=== PATIENT | male | born 1970 | race African-American/Black ===

== ENCOUNTER 2018-01-03 18:53 | Emergency (ER) | payer OTHER ==
[2018-01-03 19:24] VITALS: BMI 27.3
[2018-01-03] MEDS ORDERED: FOLIC ACID INJECTION - 1 MG, THIAMINE HCL 100 MG, MULTIVIT INJECTION ADULT 10 ML in SOD... IVPB ONE (19:58)
--- NOTE | 2018-01-03 20:04 | PDOC ---
Attending Attestation - Resident Resident Name: Neptali Cortes - ED Attending Attestation I have performed the following: I have examined & evaluated the patient, The case was reviewed & discussed with the resident, I agree w/resident's findings & plan, Exceptions are as noted - HPI HPI: 01/03/18 21:26 Mr Rothman is a 47 yo M h/o HTN, depression, bipolar, bronchitis, opioid, riccardo, xanax and alcohol dependence, being sent from [facility] due to headache, fever, runny nose, chills, body aches, anxiety, 1 episode diarrhea x1d and w/ worsening cough x3mo (previously treated with abx and steroids). cold /flu like sxs began this morning. - Physicial Exam PE: 01/03/18 21:43 PT is resting comfortably He is awake and arousable Answers questions appropriately RRR Lung clear to auscultation No abd tenderness CN in tact, moves all extremities - Medical Decision Making 47 yo M presenting to the ER with what sounds like upper respiratory complaints from [facility] Pt has stable vital signs It is unclear to me why he was sent to the ER? 01/03/18 21:45 Laboratory Tests 01/03/18 01/03/18 01/03/18 20:27 20:27 20:27 WBC 9.1 Hgb 13.8 Hct 41.3 Plt Count 218 BUN 10 Creatinine 1.1 HIV 1&2 Antibody Screen Negative HIV P24 Antigen Negative 01/04/18 00:55 CXR demonstrates no consolidation Influenza negative Will plan to discharge to home Will give Azithromycin and prednisone 01/04/18 08:48 Twelve-lead EKG was performed and reviewed by me. There is normal sinus rhythm with a normal rate. The axis is normal. The intervals are normal. There are no ST or T wave abnormalities. Impression: Normal twelve-lead EKG
[2018-01-03] MEDS ORDERED: chlordiazePOXIDE HCL 25 MG CAPSULE PO ONE (20:09)
--- NOTE | 2018-01-03 20:12 | PDOC ---
History of Present Illness - General Chief Complaint: Alcohol intoxication Stated Complaint: INTOX Time Seen by Provider: 01/03/18 20:03 - History of Present Illness Initial Comments: 01/03/18 20:12 47 yo male with PMH HTN, depression, bipolar, bronchitis, opioid, riccardo, xanax and alcohol dependence, being sent from [facility] due to lack of beds and p/w headache, fever, runny nose, chills, body aches, anxiety, 1 episode diarrhea x1d and w/ worsening cough x3mo. cold /flu like sxs began this morning. pt states last drink was yesterday. Last xanax and riccardo/opiod use 2 days ago. pt also reports having sex w/ new IV drug user female partner 2 days ago and did not use condom. pt requesting HIV test. pt states he does not use IV drugs and only snorts. pt states never has required intubation or ICU admission for withdrawal. However, he reports he suffered a seizure about six months ago and does not recall why. Reports hx of frequet blackouts. Reorts hx of fentanyl overdose three months ago. pt reports 3mo hx of worsening productive cough w/ some pleuritic chest pain. was seen in [facility] and was given steroids and abx. At [facility] reported w/ Utox positive for RICCARDO, Benzo. LEELA = 0.00, BP 150/70, P80, RR18, 98.7. SH: 1/2ppd for 20yr, 1 pint vodka and 12 beers a day, opioid, riccardo, xanax and alcohol dependence. [place] Meds: zoloft, zyprexa, gabapentin PCP - Dr. Holt Past History - Past Medical History Allergies/Adverse Reactions: Allergies Allergy/AdvReac Type Severity Reaction Status Date / Time Pork/Porcine Containing Allergy Verified 01/03/18 19:16 Products Home Medications: Ambulatory Orders Amlodipine Besylate 5 mg PO DAILY 01/03/18 Azithromycin 250 mg PO DAILY 4 Days #4 tablet 01/04/18 Prednisone [Deltasone] 60 mg PO DAILY 4 Days #12 tablet 01/04/18 COPD: No CHF: No HTN: Yes Psychiatric Problems: Yes (heroin abuse,alcoholism,bipolar) - Suicide/Smoking/Psychosocial Hx Smoking History: Current every day smoker Have you smoked in the past 12 months: Yes Number of Cigarettes Smoked Daily: 10 Information on smoking cessation initiated: Yes 'Breaking Loose' booklet given: 01/03/18 Substance Use Type: Alcohol, Heroin Review of Systems - Review of Systems Constitutional: Yes: See HPI HEENTM: Yes: See HPI Respiratory: Yes: See HPI Cardiac (ROS): Yes: See HPI ABD/GI: Yes: See HPI : Yes: See HPI Musculoskeletal: Yes: See HPI Integumentary: Yes: See HPI Neurological: Yes: See HPI Endocrine: Yes: See HPI Hematologic/Lymphatic: Yes: See HPI *Physical Exam - Vital Signs Last Vital Signs Temp Pulse Resp BP Pulse Ox 98.1 F 71 20 143/86 99 01/03/18 19:00 01/03/18 19:00 01/03/18 19:00 01/03/18 19:00 01/03/18 19:00 - Physical Exam Comments: 01/03/18 20:24 General: Well-nourished, mildly anxious HEENT: NCAT, MMM Neck: supple no lymphadenopathy Respiratory: rhonci b/l cardio: RRR S1 S2 no m/r/g. Abdomen: +BS , soft, NTND Extremities: radial 2+ b/l. Warm, dry, no cyanosis, edema, clubbing or calf tenderness. mild R hand tremor Skin: intact. no rashes Neuro: Alert and oriented x3, strength sensation grossly intact. Psych: Normal mood and affect ED Treatment Course - LABORATORY CBC & Chemistry Diagram: 01/03/18 20:27 01/03/18 20:27 - RADIOLOGY Radiology Studies Ordered: Category Date Time Status CHEST PA & LAT [RAD] Stat Radiology 01/03/18 19:59 Ordered Medical Decision Making - Medical Decision Making 01/03/18 20:28 47 yo male with PMH HTN, depression, bipolar, bronchitis, opioid, riccardo, xanax and alcohol dependence, being sent from [facility] due to lack of beds and p/w headache, fever, runny nose, chills, body aches, anxiety, 1 episode diarrhea x1d and w/ worsening cough x3mo. vitals wnl and afebrile. will check basic labs and tx w/ lbirium and banana bag in consideration for possible withdrawal. pt new flu like sxs and chronic cough may be 2/2 URI vs PNA va bronchitis. will check flu swab and CXR to look for signs of PNA. HIV test in consideration of recent and hx of risky sexual behaviour, may explain current sxs. pt afebrile and comfortable will hold off on abx for now and will f/u on labs and imaging. -CBC, CMP, Mg, Phosp, coags, EKG, CXR, flu swab, trop -banana bag -Librium 50mg -HIV test 01/03/18 22:56 pt is comfortable labs grossly unremarkable flu neg HIV neg CXR shows no focal consolidation, maybe some increased vasculature. On wet read , There appears to be a small calcified nodule in the L hilar region. pt will be notified and should f/u w/ PCP for further eval. pt likely has bronchitis, will give azithromycin and prednisone will dc w/ azithromycin and prednisone 01/04/18 00:[address] T wave changes trop neg Pt is stable and ready for discharge. We will send back to [facility] *DC/Admit/Observation/Transfer Diagnosis at time of Disposition: Bronchitis - Discharge Dispostion Disposition: HOME Condition at time of disposition: Stable Decision to Admit order: No - Prescriptions Prescriptions: Azithromycin 250 mg PO DAILY 4 Days #4 tablet Prednisone [Deltasone] 60 mg PO DAILY 4 Days #12 tablet - Referrals Referrals: Claire Resendez MD [Primary Care Provider] - - Patient Instructions Printed Discharge Instructions: Common Cold, Acute Bronchitis, Chronic Bronchitis, DI for Chronic Bronchitis, DI for Acute Bronchitis Additional Instructions: You came in for headache, fever, runny nose, chills, body aches Your labs and chest xray showed no signs of flu, HIV, or pneumonia You may have bronchitis (infection/inflammation in the airways) or a viral cough. Please stop smoking as this will irritate your lungs and make you more susceptible to getting bronchitis We gave you azithromycin (antibiotic) and prednisone. We will prescribe you azithromycin (antibiotic) and prednisone for 4 more days. Please follow up with your primary care physician within 1 week. Please go back to [facility] for detox. If you experience any fevers, chills, chest pain, shortness of breath, worsening cough, blood in your sputum, vomit, hand tremors, sweating, palpatations, nausea, diarrhea, please call 911 or come back to the ER. - Post Discharge Activity
[2018-01-03] MEDS ORDERED: chlordiazePOXIDE HCL 25 MG CAPSULE ONE (20:19)
[2018-01-03 20:54] LABS: BASO % 0.4 % (0-2.0); EOS % 0.8 % (0-4.5); HEMATOCRIT 41.3 % (35.4-49); HEMOGLOBIN 13.8 GM/dL (11.7-16.9); LYMPH % 25.3 % (8-40); MCH 31.5 pg (25.7-33.7); MCHC 33.3 g/dl (32.0-35.9); MEAN CELL VOLUME 94.4 fl (80-96); MEAN PLT VOLUME 8.4 fl (7.5-11.1); MONO % 10.2 % (3.8-10.2); NEUT % 63.3 % (42.8-82.8); PLATELET COUNT 218 K/MM3 (134-434); RBC 4.38 M/mm3 (4.00-5.60); RDW 13.4 % (11.9-15.9); WHITE BLOOD COUNT 9.1 K/mm3 (4.0-10.0)
[2018-01-03 21:18] LABS: ALBUMIN 3.4 g/dl (3.4-5.0); ALK PHOS 97 U/L (45-117); ANION GAP 0 MMOL/L (8-16); BILIRUBIN,TOTAL 0.3 mg/dL (0.2-1); BLOOD UREA NITROGEN 10 mg/dL (7-18); CALCIUM 9.1 mg/dL (8.5-10.1); CHLORIDE 111 mmol/L (98-107); CO2 26 mmol/L (21-32); CREATININE 1.1 mg/dL (0.55-1.3); GLUCOSE,RANDOM 93 mg/dL (74-106); MAGNESIUM 2.2 mg/dL (1.8-2.4); PHOSPHOROUS 3.2 mg/dL (2.5-4.9); POTASSIUM 4.1 mmol/L (3.5-5.1); SGOT/AST 17 U/L (15-37); SGPT/ALT 22 U/L (13-61); SODIUM 138 mmol/L (136-145)
[2018-01-03 21:53] LABS: INR 0.97 (0.83-1.09); PROTHROMBIN TIME (PATIENT) 11.4 SEC (9.7-13.0)
[2018-01-03] MEDS ORDERED: AZITHROMYCIN IVPB 500 MG in DEXTROSE 5%-WATER - 250 ML IVPB ONE (22:49)
[2018-01-03] MEDS ORDERED: predniSONE 20 MG TABLET (UD) PO ONE (22:51)
[2018-01-03] MEDS ORDERED: predniSONE 20 MG TABLET (UD) ONE (23:01)
[2018-01-03] MEDS ORDERED: AZITHROMYCIN IVPB 500 MG/250 ML BAG IVPB ONE (23:02)
[2018-01-03 23:19] VITALS: BP 138/82; PULSE 72; TEMP 98.3
--- NOTE | 2018-01-04 09:06 | HP ---
Admission ROS [facility] - HPI Allergies/Adverse Reactions: Allergies Allergy/AdvReac Type Severity Reaction Status Date / Time Pork/Porcine Containing Allergy Verified 01/03/18 19:16 Products Patient History - Patient Medical History Hx Chronic Obstructive Pulmonary Disease (COPD): No Hx Congestive Heart Failure: No Hx Hypertension: Yes - Smoking Cessation Smoking history: Current every day smoker Have you smoked in the past 12 months: Yes Aproximately how many cigarettes per day: 10 Initiated information on smoking cessation: Yes Admission Physical Exam [facility] - Vital Signs Vital Signs: Vital Signs - 24 hr 01/03/18 01/03/18 19:00 23:18 Temperature 98.1 F 98.3 F Pulse Rate 71 Pulse Rate [ 72 Apical] Respiratory 20 20 Rate Blood Pressure 143/86 Blood Pressure 138/82 [Right Arm] O2 Sat by Pulse 99 100 Oximetry (%) [facility]HS Breath Alcohol Content Breath Alcohol Content: 0
--- NOTE | 2018-01-04 11:46 | EKG ---
Test Reason : Blood Pressure : / mmHG Vent. Rate : 073 BPM Atrial Rate : 073 BPM P-R Int : 162 ms QRS Dur : 084 ms QT Int : 406 ms P-R-T Axes : 077 084 076 degrees QTc Int : 447 ms NORMAL SINUS RHYTHM NORMAL ECG NO PREVIOUS ECGS AVAILABLE Confirmed by NAOMI AVILES, ANTONIO ([id number]) on 01/04/2018 11:46:21 AM Referred By: Confirmed By:ANTONIO SALGADO MD
== END 2018-01-04 01:42 | disposition home or self-care (01) ==
LOC: JER 18:53
PROC: 3E033GC Introduction of Other Therapeutic Substance into Peripheral Vein, Percutaneous Approach (ICD-10-PCS; principal; 2018-01-03)
PROC: 3E03329 Introduction of Other Anti-infective into Peripheral Vein, Percutaneous Approach (ICD-10-PCS; 2018-01-03)
DX: J40 Bronchitis, not specified as acute or chronic (principal); I10 Essential (primary) hypertension; F32.9 Major depressive disorder, single episode, unspecified; F31.9 Bipolar disorder, unspecified; F11.20 Opioid dependence, uncomplicated; F10.20 Alcohol dependence, uncomplicated; F13.20 Sedative, hypnotic or anxiolytic dependence, uncomplicated; F14.20 Cocaine dependence, uncomplicated
CPT/HCPCS: 36415; 71046-TC-FY; 80053; 83735; 84100; 84484; 85025; 85610; 85730; 87389; 87804; 93005; 93010; 99283-25; J7030

== ENCOUNTER 2018-04-23 08:27 | Inpatient (IN) | payer OTHER ==
[2018-04-23 09:48] VITALS: BMI 30.2
--- NOTE | 2018-04-23 11:32 | HP ---
COWS - Scale Resting Pulse: 1= [place] 81-100 Sweatin= Chills/Flushing Restless Observation: 3= Extraneous Movement Pupil Size: 1= Pupils >than Normal Bone or Joint Aches: 2= Severe Diffuse Aches Runny Nose/ Eye Tearin= Runny Nose/Eyes GI Upset > 30mins: 3= Vomiting/Diarrhea Tremor Observation: 2= Slight Tremor Visible Yawning Observation: 2= >3x During Session Anxiety or Irritability: 2=Irritable/Anxious Goose Flesh Skin: 0=Smooth Skin COWS Score: 19 CIWA Score - Admission Criteria [facility] Guidelines: Admission for Medically Managed Detox: Requires at least one of the followin. CIWA greater than 12 2. Seizures within the past 24 hours 3. Delirium tremens within the past 24 hours 4. Hallucinations within the past 24 hours 5. Acute intervention needed for co occurring medical disorder 6. Acute intervention needed for co occurring psychiatric disorder 7. Severe withdrawal that cannot be handled at a lower level of care (continued vomiting, continued diarrhea, abnormal vital signs) requiring intravenous medication and/or fluids 8. Admission ROS [facility] Chief Complaint: i need help to stop using heroin,cocaine,marijuana,street suboxone Allergies/Adverse Reactions: Allergies Allergy/AdvReac Type Severity Reaction Status Date / Time Pork/Porcine Containing Allergy Severe Hives Verified 04/23/18 10:28 Products NKDA Allergy Uncoded 04/23/18 10:28 History of Present Illness: this 48 years old male with heroin,cocaine,marijuana,street suboxone,seeking detox,withdrawal symptom,seeking detox,from 01/04/22 nicotine dependence longest period of sobriety 1 and half year plan for rehab after detox Exam Limitations: No Limitations - Ebola screening Have you traveled outside of the country in the last 21 days: No Have you had contact with anyone from an Ebola affected area: No Have you been sick,other than usual withdrawal symptoms: No Do you have a fever: No - Review of Systems Constitutional: Chills, Loss of Appetite, Malaise, Night Sweats, Changes in sleep, Weakness EENT: reports: No Symptoms Reported, Nose Congestion Respiratory: reports: No Symptoms reported Cardiac: reports: No Symptoms Reported GI: reports: Diarrhea, Nausea, Abdominal cramping : reports: No Symptoms Reported Musculoskeletal: reports: Back Pain, Joint Pain, Muscle Pain, Neck Pain Integumentary: reports: Dryness Neuro: reports: Headache, Tremors Endocrine: reports: No Symptoms Reported Hematology: reports: No Symptoms Reported Psychiatric: reports: No Sypmtoms Reported, Judgement Intact, Mood/Affect Appropiate, Orientated x3 Other Systems: Reviewed and Negative Patient History - Patient Medical History Hx Anemia: No Hx Asthma: No Hx Chronic Obstructive Pulmonary Disease (COPD): No Hx Cancer: No Hx Cardiac Disorders: No Hx Congestive Heart Failure: No Hx Hypertension: Yes (no med) Hx Hypercholesterolemia: No Hx Pacemaker: No HX Cerebrovascular Accident: No Hx Seizures: No Hx Dementia: No Hx Diabetes: No Hx Gastrointestinal Disorders: No Hx Liver Disease: No Hx Genitourinary Disorders: No Hx Sexually Transmitted Disorders: No Hx Renal Disease (ESRD): No Hx Thyroid Disease: No Hx Human Immunodeficiency Virus (HIV): No (01/03/18 negative) Hx Hepatitis C: No Hx Depression: Yes Hx Suicide Attempt: No Hx Bipolar Disorder: Yes Hx Schizophrenia: No Other Medical History: no suicidal,no homicidal - Patient Surgical History Past Surgical History: Yes Hx Neurologic Surgery: No Hx Cataract Extraction: No Hx Cardiac Surgery: No Hx Lung Surgery: No Hx Breast Surgery: No Hx Breast Biopsy: No Hx Abdominal Surgery: No Hx Appendectomy: No Hx Cholecystectomy: No Hx Genitourinary Surgery: No Hx Section: No Hx Orthopedic Surgery: No Other Surgical History: biopsy right kidney 2 years ago at [facility] was told to be ok Anesthesia Reaction: No - PPD History Previous Implant?: Yes Documented Results: Positive w/o proof PPD to be Administered?: No - Smoking Cessation Smoking history: Current every day smoker Have you smoked in the past 12 months: Yes Aproximately how many cigarettes per day: 10 Hx Chewing Tobacco Use: No Initiated information on smoking cessation: Yes 'Breaking Loose' booklet given: 04/23/18 - Substance & Tx. History Hx Alcohol Use: No Hx Substance Use: Yes Substance Use Type: Cocaine, Heroin, Marijuana Hx Substance Use Treatment: Yes ([facility] 01/04/18 to ) - Substances Abused Heroin Route: Inhalation Frequency: Daily Amount used: 7-8 bags Age of first use: 36 Date of Last Use: 04/22/18 Crack Route: Smoking Frequency: Daily Amount used: 2-3 gms. Age of first use: 19 Date of Last Use: 04/22/18 Marijuana Route: Smoking Frequency: 1-2 times per week Amount used: 1 joint Age of first use: 13 Date of Last Use: 04/22/18 Family Disease History - Family Disease History Family Disease History: Other: Father (dsa,alcohol,), Mother (dsa,alcoho ,) Admission Physical Exam [facility] - Vital Signs Vital Signs: Vital Signs - 24 hr 04/23/18 09:46 Temperature 98 F Pulse Rate 95 H Respiratory 18 Rate Blood Pressure 149/84 - Physical General Appearance: Yes: Moderate Distress, Tremorous, Irritable, Sweating, Anxious HEENTM: Yes: Normal ENT Inspection, Normocephalic, KAROL, Pharynx Normal Respiratory: Yes: Lungs Clear, Normal Breath Sounds, No Respiratory Distress Neck: Yes: Within Normal Limits, Supple, Trachea in good position Breast: Yes: Within Normal Limits Cardiology: Yes: Within Normal Limits, Regular Rhythm, Regular Rate, S1, S2 Abdominal: Yes: Within Normal Limits, Normal Bowel Sounds, Non Tender, Flat, Soft Genitourinary: Yes: Within Normal Limits Back: Yes: Within Normal Limits, Muscle Spasm Musculoskeletal: Yes: full range of Motion, Back pain, Muscle Pain Extremities: Yes: Within Normal Limits, Normal Range of Motion, Tremors 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, Fully Oriented, Alert, Motor Strength 5/5 Integumentary: Yes: Dry Lymphatic: Yes: Within Normal Limits - Diagnostic (1) Opioid dependence with withdrawal Current Visit: Yes Status: Acute (2) Cocaine dependence Current Visit: No Status: Chronic (3) Nicotine dependence Current Visit: No Status: Chronic (4) Cannabis dependence Current Visit: Yes Status: Acute (5) Asthma Current Visit: No Status: Chronic (6) Bipolar disorder Current Visit: No Status: Chronic Cleared for Admission [facility] - Detox or Rehab [facility] Level of Care: Medically Managed Detox Regimen/Protocol: Methadone [facility] Breath Alcohol Content Breath Alcohol Content: 0 Urine Drug Screen - Results Drug Screen Negative: No Urine Drug Screen Results: THC-Marijuana, ALESSANDRA-Cocaine, OPI-Opiates, FEN-Fentanyl , BUP-Suboxone
[2018-04-23] MEDS ORDERED: guaiFENesin/D-METHORPHAN HB 10 ML UNIT-DOSE CUPS PO PRN (11:43)
[2018-04-23] MEDS ORDERED: ACETAMINOPHEN 325 MG TABLET (FP) PO PRN (11:43)
[2018-04-23] MEDS ORDERED: IBUPROFEN 400 MG TABLET (FP) PO PRN (11:43)
[2018-04-23] MEDS ORDERED: MAG HYDROX/AL HYDROX/SIMETH 30 ML UNIT-DOSE CUP PO PRN (11:43)
[2018-04-23] MEDS ORDERED: MAGNESIUM HYDROX 2400MG/30ML ORAL SUSPENSION 30 ML CUP PO PRN (11:43)
[2018-04-23] MEDS ORDERED: MAGNESIUM CITRATE 300 ML BOTTLE PO PRN (11:43)
[2018-04-23] MEDS ORDERED: MENTHOL/PHENOL 1 EACH UD MM PRN (11:43)
[2018-04-23] MEDS ORDERED: LOPERAMIDE HCL 2 MG CAPSULE PO PRN (11:43)
[2018-04-23] MEDS ORDERED: P-EPHED 60MG/TRIPROLIDI 2.5MG TABLET PO PRN (11:43)
--- NOTE | 2018-04-23 12:08 | CONSULT ---
[facility] Psychiatric Consult - Data Date of interview: 04/23/18 Admission source: [facility] Identifying data: This is a 48 years old male, single father of three, homeless , umemployed, on PA, with heroin,cocaine,marijuana, nicotine dependence, street suboxone abuse/dependence as well, is here reporting withdrawal; symptoms , and ,seeking detox. Substance Abuse History: Smoking history: Current every day smoker. Have you smoked in the past 12 months: Yes. Aproximately how many cigarettes per day: 10. Hx Chewing Tobacco Use: No. Initiated information on smoking cessation: Yes. 'Breaking Loose' booklet given: 04/23/18. - Substance & Tx. History. Hx Alcohol Use: No. Hx Substance Use: Yes. Substance Use Type: Cocaine, Heroin, Marijuana. Hx Substance Use Treatment: Yes ([facility] 01/04/18 to ). - Substances Abused. Heroin. Route: Inhalation. Frequency: Daily. Amount used: 7-8 bags. Age of first use: 36. Date of Last Use: 04/22/18. Crack. Route: Smoking. Frequency: Daily. Amount used: 2-3 gms. Age of first use: 19. Date of Last Use: 04/22/18. Marijuana. Route: Smoking. Frequency: 1- 2 times per week. Amount used: 1 joint. Age of first use: 13. Date of Last Use: 04/22/18 Medical History: Weight loss history, Asthma, Bronchitis history, Weight loss history Psychiatric History: Patient is poor historyan, reports to carry Bipolar Disorder, reportys most recent psychiatric nadmission on 03/2018 at '' somewhere in [place]", reports taking : Zyprexa 5mg po qhs. Gabapentin 300mg po tid. Denies suicidal, homicidal history. Physical/Sexual Abuse/Trauma History: Denies Additional Comment: Zyprexa 5mg po qhs. Gabapentin 300mg po tid Mental Status Exam - Mental Status Exam Alert and Oriented to: Person Cognitive Function: Fair Patient Appearance: Unkempt Mood: Sad Affect: Flat Patient Behavior: Sedated Speech Pattern: Delayed Voice Loudness: Mildly Soft/Quiet Thought Process: Circumstantial Thought Disorder: Being Controlled Hallucinations: Denies Suicidal Ideation: Denies Homicidal Ideation: Denies Insight/Judgement: Fair Sleep: Difficulty falling asleep Appetite: Weight loss Muscle strength/Tone: Mild Hypotonicity Gait/Station: Shuffling Additional Comments: Zyprexa 5mg po qhs. Gabapentin 300mg po tid Psychiatric Findings - Problem List ([place] 1, 2,3) (1) Cannabis dependence Current Visit: Yes Status: Acute (2) Opioid dependence with withdrawal Current Visit: Yes Status: Acute (3) Alcohol dependence with uncomplicated withdrawal Current Visit: No Status: Acute (4) Substance induced mood disorder Current Visit: No Status: Acute (5) Uncomplicated sedative, hypnotic or anxiolytic withdrawal Current Visit: No Status: Acute (6) Bronchitis Current Visit: No Status: Acute (7) Glycosuria with normal serum glucose Current Visit: No Status: Acute (8) Weight loss Current Visit: No Status: Acute (9) Asthma Current Visit: No Status: Chronic (10) Bipolar disorder Current Visit: No Status: Chronic (11) Cocaine dependence Current Visit: No Status: Chronic (12) Heroin abuse Current Visit: No Status: Chronic (13) Nicotine dependence Current Visit: No Status: Chronic (14) Mood disorder Current Visit: No Status: Suspected - Initial Treatment Plan Initial Treatment Plan: Zyprexa 5mg po qhs. Gabapentin 300mg po tid
[2018-04-23] MEDS ORDERED: METHADONE HCL 10 MG TABLET (FOR DETOX USE ONLY) PO ONE ×2 (12:15→23:00)
[2018-04-23] MEDS: amLODIPine BESYLATE 5 MG TABLET (FP) PO SCH (12:26)
[2018-04-23 14:48] LABS: URINE APPEARANCE CLEAR; URINE BILIRUBIN NEGATIVE (<2.0 mg/dL); URINE COLOR DKYELLOW; URINE GLUCOSE (UA) NEGATIVE (NEGATIVE); URINE KETONE NEGATIVE (NEGATIVE); URINE LEUK ESTERASE NEGATIVE (NEGATIVE); URINE NITRITE NEGATIVE (NEGATIVE); URINE PROTEIN 1+ (NEGATIVE); URINE UROBILINOGEN 4.0 E.U/dl mg/dL (0.2-1.0)
[2018-04-23 16:03] LABS: URINE MUCUS FEW
[2018-04-23] MEDS ORDERED: MELATONIN 5 MG TABLETS PO PRN (22:00)
[2018-04-23] MEDS: GABAPENTIN 300 MG CAPSULE (FP) PO SCH (22:03)
[2018-04-23] MEDS: THIAMINE HCL 100 MG TABLET (FP) PO SCH (22:03)
[2018-04-23] MEDS: CYCLOBENZAPRINE HCL 10 MG TABLET (FP) PO PRN (22:03)
[2018-04-23] MEDS: cloNIDine HCL 0.1 MG TABLET PO SCH (22:03)
[2018-04-23] MEDS: OLANZapine 5 MG TABLET PO SCH (22:03)
[2018-04-23] MEDS: diazePAM 5 MG TABLET PO PRN (22:05)
[2018-04-24] MEDS ORDERED: METHADONE HCL 10 MG TABLET (FOR DETOX USE ONLY) PO ONE (10:00)
[2018-04-24] MEDS: amLODIPine BESYLATE 5 MG TABLET (FP) PO SCH (10:10)
[2018-04-24] MEDS: PRENATAL VITAMINS W/ FOLIC ACID TABLET (FP) PO SCH (10:10)
[2018-04-24] MEDS: cloNIDine HCL 0.1 MG TABLET PO SCH ×2 (10:10→22:08)
[2018-04-24] MEDS: GABAPENTIN 300 MG CAPSULE (FP) PO SCH ×2 (10:10→22:08)
[2018-04-24 10:28] LABS: HEMATOCRIT 36.8 % (35.4-49); MCH 33.4 pg (25.7-33.7); MCHC 35.2 g/dl (32.0-35.9); MEAN CELL VOLUME 94.9 fl (80-96); MEAN PLT VOLUME 8.3 fl (7.5-11.1); PLATELET COUNT 209 K/MM3 (134-434); RBC 3.87 M/mm3 (4.00-5.60); RDW 13.4 % (11.9-15.9); WHITE BLOOD COUNT 6.7 K/mm3 (4.0-10.0)
[2018-04-24 10:36] LABS: ALBUMIN 3.7 g/dl (3.4-5.0); ALK PHOS 103 U/L (45-117); ANION GAP 6 MMOL/L (8-16); BILIRUBIN,TOTAL 0.5 mg/dL (0.2-1); BLOOD UREA NITROGEN 12 mg/dL (7-18); CALCIUM 8.7 mg/dL (8.5-10.1); CHLORIDE 104 mmol/L (98-107); CO2 28 mmol/L (21-32); CREATININE 1.4 mg/dL (0.55-1.3); GLUCOSE,RANDOM 143 mg/dL (74-106); POTASSIUM 3.6 mmol/L (3.5-5.1); SGOT/AST 25 U/L (15-37); SGPT/ALT 29 U/L (13-61); SODIUM 138 mmol/L (136-145); TOT PROT 7.1 g/dl (6.4-8.2)
--- NOTE | 2018-04-24 11:39 | PN ---
[facility] COWS - Scale Resting Pulse: 0= [place] 80 or Below Sweatin= Chills/Flushing Restless Observation: 3= Extraneous Movement Pupil Size: 1= Pupils >than Normal Bone or Joint Aches: 2= Severe Diffuse Aches Runny Nose/ Eye Tearin= Runny Nose/Eyes GI Upset > 30mins: 2= Nausea/Diarrhea Tremor Observation of Outstretched Hands: 2= Slight Tremor Visible Yawning Observation: 1= 1-2x During Session Anxiety or Irritability: 2=Irritable/Anxious Goose Flesh Skin: 0=Smooth Skin COWS Score: 16 S Progress Note (SOAP) Subjective: alert,irritable,anxious,interrupted sleep,pain in the body and joint Objective: 04/24/18 11:37 Vital Signs Temperature 98.1 F 04/24/18 09:20 Pulse Rate 76 04/24/18 09:20 Respiratory Rate 18 04/24/18 09:20 Blood Pressure 137/76 04/24/18 09:20 O2 Sat by Pulse Oximetry (%) Laboratory Last Values WBC 6.7 K/mm3 (4.0-10.0) 04/24/18 06:00 RBC 3.87 M/mm3 (4.00-5.60) L 04/24/18 06:00 Hgb 13.0 GM/dL (11.7-16.9) 04/24/18 06:00 Hct 36.8 % (35.4-49) 04/24/18 06:00 MCV 94.9 fl (80-96) 04/24/18 06:00 MCH 33.4 pg (25.7-33.7) 04/24/18 06:00 MCHC 35.2 g/dl (32.0-35.9) 04/24/18 06:00 RDW 13.4 % (11.9-15.9) 04/24/18 06:00 Plt Count 209 K/MM3 (134-434) 04/24/18 06:00 MPV 8.3 fl (7.5-11.1) 04/24/18 06:00 Sodium 138 mmol/L (136-145) 04/24/18 06:00 Potassium 3.6 mmol/L (3.5-5.1) 04/24/18 06:00 Chloride 104 mmol/L (98-107) 04/24/18 06:00 Carbon Dioxide 28 mmol/L (21-32) 04/24/18 06:00 Anion Gap 6 MMOL/L (8-16) L 04/24/18 06:00 BUN 12 mg/dL (7-18) 04/24/18 06:00 Creatinine 1.4 mg/dL (0.55-1.3) H 04/24/18 06:00 Creat Clearance w eGFR 54.32 (>60) 04/24/18 06:00 Random Glucose 143 mg/dL (74-106) H 04/24/18 06:00 Calcium 8.7 mg/dL (8.5-10.1) 04/24/18 06:00 Total Bilirubin 0.5 mg/dL (0.2-1) 04/24/18 06:00 AST 25 U/L (15-37) 04/24/18 06:00 ALT 29 U/L (13-61) 04/24/18 06:00 Alkaline Phosphatase 103 U/L (45-117) 04/24/18 06:00 Total Protein 7.1 g/dl (6.4-8.2) 04/24/18 06:00 Albumin 3.7 g/dl (3.4-5.0) 04/24/18 06:00 Urine Color Dkyellow 04/23/18 13:40 Urine Appearance Clear 04/23/18 13:40 Urine pH 6.0 (5.0-8.0) 04/23/18 13:40 Ur Specific [place] 1.028 (1.010-1.035) 04/23/18 13:40 Urine Protein 1+ (NEGATIVE) H 04/23/18 13:40 Urine Glucose (UA) Negative (NEGATIVE) 04/23/18 13:40 Urine Ketones Negative (NEGATIVE) 04/23/18 13:40 Urine Blood Negative (NEGATIVE) 04/23/18 13:40 Urine Nitrite Negative (NEGATIVE) 04/23/18 13:40 Urine Bilirubin Negative (<2.0 mg/dL) 04/23/18 13:40 Urine Urobilinogen 4.0 e.u/dl mg/dL (0.2-1.0) 04/23/18 13:40 Ur Leukocyte Esterase Negative (NEGATIVE) 04/23/18 13:40 Urine WBC (Auto) 1 /hpf (3-5) 04/23/18 13:40 Urine RBC (Auto) None /hpf (0-3) 04/23/18 13:40 Urine Mucus Few 04/23/18 13:40 HIV 1&2 Antibody Screen Negative 04/23/18 12:00 HIV P24 Antigen Negative 04/23/18 12:00 Assessment: 04/24/18 11:38 withdrawal symptom Plan: continue detox
[2018-04-24] MEDS: diazePAM 5 MG TABLET PO PRN (15:33)
[2018-04-24] MEDS: THIAMINE HCL 100 MG TABLET (FP) PO SCH (22:08)
[2018-04-24] MEDS: OLANZapine 5 MG TABLET PO SCH (22:08)
[2018-04-25] MEDS ORDERED: METHADONE HCL 5 MG TABLET (FOR DETOX USE ONLY) PO ONE (10:00)
[2018-04-25] MEDS: cloNIDine HCL 0.1 MG TABLET PO SCH ×2 (10:40→22:12)
[2018-04-25] MEDS: amLODIPine BESYLATE 5 MG TABLET (FP) PO SCH (10:40)
[2018-04-25] MEDS: PRENATAL VITAMINS W/ FOLIC ACID TABLET (FP) PO SCH (10:40)
[2018-04-25] MEDS: GABAPENTIN 300 MG CAPSULE (FP) PO SCH ×2 (10:40→22:12)
[2018-04-25] MEDS: diazePAM 5 MG TABLET PO PRN (10:43)
[2018-04-25] MEDS: hydrOXYzine PAMOATE 50 MG CAPSULE (FP) PO PRN (12:36)
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
[2018-04-25] MEDS: THIAMINE HCL 100 MG TABLET (FP) PO SCH (22:12)
[2018-04-25] MEDS: OLANZapine 5 MG TABLET PO SCH (22:12)
[2018-04-25] MEDS: valACYclovir HCL 500 MG TABLET (FP) PO SCH (22:12)
[2018-04-26] MEDS ORDERED: METHADONE HCL 5 MG TABLET (FOR DETOX USE ONLY) PO ONE (10:00)
[2018-04-26] MEDS: PRENATAL VITAMINS W/ FOLIC ACID TABLET (FP) PO SCH (11:01)
[2018-04-26] MEDS: GABAPENTIN 300 MG CAPSULE (FP) PO SCH ×2 (11:01→22:37)
[2018-04-26] MEDS: cloNIDine HCL 0.1 MG TABLET PO SCH ×2 (11:01→22:37)
[2018-04-26] MEDS: amLODIPine BESYLATE 5 MG TABLET (FP) PO SCH (11:01)
[2018-04-26] MEDS: valACYclovir HCL 500 MG TABLET (FP) PO SCH ×2 (11:02→22:37)
[2018-04-26] MEDS: CYCLOBENZAPRINE HCL 10 MG TABLET (FP) PO PRN (11:03)
[2018-04-26 11:07] LABS: ANION GAP 6 MMOL/L (8-16); BLOOD UREA NITROGEN 9 mg/dL (7-18); CALCIUM 8.9 mg/dL (8.5-10.1); CHLORIDE 104 mmol/L (98-107); CO2 30 mmol/L (21-32); CREATININE 1.2 mg/dL (0.55-1.3); GLUCOSE,RANDOM 126 mg/dL (74-106); POTASSIUM 3.7 mmol/L (3.5-5.1); SODIUM 141 mmol/L (136-145)
[2018-04-26] MEDS: hydrOXYzine PAMOATE 50 MG CAPSULE (FP) PO PRN ×2 (13:38→16:55)
--- NOTE | 2018-04-26 16:55 | PN ---
BHS Progress Note (SOAP) Subjective: Body Aches, Fatigue, Interrupted Sleep. Objective: PATIENT A & O X 3, OBSERVED AMBULATING ON UNIT. IN NO ACUTE DISTRESS. 04/26/18 16:53 Vital Signs Temperature 97.9 F 04/26/18 13:59 Pulse Rate 97 H 04/26/18 13:59 Respiratory Rate 16 04/26/18 13:59 Blood Pressure 118/87 04/26/18 13:59 O2 Sat by Pulse Oximetry (%) Laboratory Tests 04/23/18 04/23/18 04/24/18 12:00 13:40 06:00 WBC 6.7 RBC 3.87 L Hgb 13.0 Hct 36.8 MCV 94.9 MCH 33.4 MCHC 35.2 RDW 13.4 Plt Count 209 MPV 8.3 Sodium Potassium Chloride Carbon Dioxide Anion Gap BUN Creatinine Creat Clearance w eGFR Random Glucose Calcium Total Bilirubin AST ALT Alkaline Phosphatase Total Protein Albumin Urine Color Dkyellow Urine Appearance Clear Urine pH 6.0 Ur Specific [place] 1.028 Urine Protein 1+ H Urine Glucose (UA) Negative Urine Ketones Negative Urine Blood Negative Urine Nitrite Negative Urine Bilirubin Negative Urine Urobilinogen 4.0 e.u/dl Ur Leukocyte Esterase Negative Urine WBC (Auto) 1 Urine RBC (Auto) None Urine Mucus Few RPR Titer HIV 1&2 Antibody Screen Negative HIV P24 Antigen Negative 04/24/18 04/24/18 04/26/18 06:00 06:00 07:00 WBC RBC Hgb Hct MCV MCH MCHC RDW Plt Count MPV Sodium 138 141 Potassium 3.6 3.7 Chloride 104 104 Carbon Dioxide 28 30 Anion Gap 6 L 6 L BUN 12 9 Creatinine 1.4 H 1.2 Creat Clearance w eGFR 54.32 > 60 Random Glucose 143 H 126 H Calcium 8.7 8.9 Total Bilirubin 0.5 AST 25 ALT 29 Alkaline Phosphatase 103 Total Protein 7.1 Albumin 3.7 Urine Color Urine Appearance Urine pH Ur Specific [place] Urine Protein Urine Glucose (UA) Urine Ketones Urine Blood Urine Nitrite Urine Bilirubin Urine Urobilinogen Ur Leukocyte Esterase Urine WBC (Auto) Urine RBC (Auto) Urine Mucus RPR Titer Nonreactive HIV 1&2 Antibody Screen HIV P24 Antigen LABS NOTED. RESULTS OF BMP NOTED. IMPROVEMENT IN RENAL LAB VALUES NOTED. 04/26/18 16:54 Assessment: 04/26/18 16:53 WITHDRAWAL SYMPTOMS. Plan: CONTINUE DETOX. INCREASE DAILY PO FLUID INTAKE.
[2018-04-26] MEDS: THIAMINE HCL 100 MG TABLET (FP) PO SCH (22:37)
[2018-04-26] MEDS: OLANZapine 5 MG TABLET PO SCH (22:37)
[2018-04-27] MEDS: hydrOXYzine PAMOATE 50 MG CAPSULE (FP) PO PRN (06:19)
[2018-04-27 09:21] VITALS: BP 144/92; PULSE 98; TEMP 98.2
[2018-04-27] MEDS ORDERED: METHADONE HCL 10 MG TABLET (FOR DETOX USE ONLY) PO ONE (10:00)
[2018-04-27] MEDS: cloNIDine HCL 0.1 MG TABLET PO SCH (10:15)
[2018-04-27] MEDS: amLODIPine BESYLATE 5 MG TABLET (FP) PO SCH (10:15)
[2018-04-27] MEDS: PRENATAL VITAMINS W/ FOLIC ACID TABLET (FP) PO SCH (10:15)
[2018-04-27] MEDS: GABAPENTIN 300 MG CAPSULE (FP) PO SCH (10:15)
[2018-04-27] MEDS: valACYclovir HCL 500 MG TABLET (FP) PO SCH (10:15)
--- NOTE | 2018-04-27 10:45 | DS ---
[facility] Detox Discharge Summary Admission Date: 04/23/18 Discharge Date: 04/27/18 - History Present History: Cannabis Dependence, Cocaine Dependence, Opioid Dependence, Sedative Dependence - Physical Exam Results Vital Signs: Vital Signs Temperature 98.2 F 04/27/18 09:20 Pulse Rate 98 H 04/27/18 09:20 Respiratory Rate 04/27/18 09:20 Blood Pressure 144/92 04/27/18 09:20 O2 Sat by Pulse Oximetry (%) - Treatment Hospital Course: Detox Protocol Followed, Detoxed Safely, Responded well, Discharged Condition Good, Rehab Referral Accepted - Medication Discharge Medications: Ambulatory Orders Amlodipine Besylate 5 mg PO DAILY 01/03/18 Gabapentin 200 mg PO BID 01/04/18 Gabapentin 300 mg PO BID #60 capsule 04/23/18 Olanzapine [Zyprexa] 5 mg PO HS #30 tablet 04/23/18 - Diagnosis (1) Cannabis dependence Current Visit: Yes Status: Chronic (2) Genital herpes Current Visit: Yes Status: Acute (3) Opioid dependence with withdrawal Current Visit: Yes Status: Chronic (4) Acute bronchitis Current Visit: No Status: Acute (5) Alcohol dependence with uncomplicated withdrawal Current Visit: Yes Status: Chronic (6) Bronchitis Current Visit: No Status: Acute (7) Substance induced mood disorder Current Visit: No Status: Acute (8) Uncomplicated sedative, hypnotic or anxiolytic withdrawal Current Visit: Yes Status: Chronic (9) Weight loss Current Visit: No Status: Acute (10) Asthma Current Visit: Yes Status: Chronic Qualifiers: Asthma severity: mild (11) Bipolar disorder Current Visit: No Status: Chronic (12) Cocaine dependence Current Visit: Yes Status: Chronic Qualifiers: Substance use status: uncomplicated Qualified Code(s): F14.20 - Cocaine dependence, uncomplicated (13) Heroin abuse Current Visit: No Status: Chronic (14) Nicotine dependence Current Visit: Yes Status: Chronic Qualifiers: Nicotine product type: cigarettes Substance use status: uncomplicated Qualified Code(s): F17.210 - Nicotine dependence, cigarettes, uncomplicated (15) Mood disorder Current Visit: No Status: Suspected - AMA Did Patient Leave Against Medical Advice: No (referred to inpatient rehab [facility] )
[2018-04-28] MEDS ORDERED: METHADONE HCL 5 MG TABLET (FOR DETOX USE ONLY) PO ONE (06:00)
== END 2018-04-27 11:51 | disposition other institution (70) | DRG 773 ==
LOC: YASAS 08:27 → Y6N 11:51
PROVIDERS: ADMIT Neuromusculoskeletal Medicine & OMM; ATTEND Neuromusculoskeletal Medicine & OMM
PROC: HZ2ZZZZ Detoxification Services for Substance Abuse Treatment (ICD-10-PCS; principal; 2018-04-23)
DX: F11.23 Opioid dependence with withdrawal (principal); F10.230 Alcohol dependence with withdrawal, uncomplicated; F13.230 Sedative, hypnotic or anxiolytic dependence with withdrawal, uncomplicated; F14.20 Cocaine dependence, uncomplicated; F12.20 Cannabis dependence, uncomplicated; F17.210 Nicotine dependence, cigarettes, uncomplicated; F39 Unspecified mood [affective] disorder; F19.24 Other psychoactive substance dependence with psychoactive substance-induced mood disorder; F31.9 Bipolar disorder, unspecified; J20.6 Acute bronchitis due to rhinovirus; A60.00 Herpesviral infection of urogenital system, unspecified; J45.909 Unspecified asthma, uncomplicated; R81 Glycosuria
CPT/HCPCS: 36415; 80048; 80053; 81003; 81015; 85027; 86593; 87389; J0735

== ENCOUNTER 2018-04-27 11:56 | Inpatient (IN) | payer OTHER ==
[2018-04-27] MEDS ORDERED: P-EPHED 60MG/TRIPROLIDI 2.5MG TABLET PO PRN (12:48)
[2018-04-27] MEDS ORDERED: MAGNESIUM HYDROX 2400MG/30ML ORAL SUSPENSION 30 ML CUP PO PRN (12:48)
[2018-04-27] MEDS ORDERED: MENTHOL/PHENOL 1 EACH UD MM PRN (12:48)
[2018-04-27] MEDS ORDERED: MAG HYDROX/AL HYDROX/SIMETH 30 ML UNIT-DOSE CUP PO PRN (12:48)
[2018-04-27] MEDS ORDERED: guaiFENesin/D-METHORPHAN HB 10 ML UNIT-DOSE CUPS PO PRN (12:48)
[2018-04-27] MEDS ORDERED: IBUPROFEN 400 MG TABLET (FP) PO PRN (12:48)
[2018-04-27] MEDS ORDERED: ACETAMINOPHEN 325 MG TABLET (FP) PO PRN (12:48)
[2018-04-27] MEDS ORDERED: LOPERAMIDE HCL 2 MG CAPSULE PO PRN (12:48)
[2018-04-27] MEDS ORDERED: NICOTINE POLACRILEX 4 MG GUM BUC PRN (12:48)
[2018-04-27] MEDS ORDERED: MAGNESIUM CITRATE 300 ML BOTTLE PO PRN (12:48)
--- NOTE | 2018-04-27 12:48 | HP ---
[facility] Rehab Assess/Revision - Admission History Admitted to Rehab from: [address] - Vital signs Vital Signs: Vital Signs Period Temp Pulse Resp BP Sys/Tejeda Pulse Ox Last 24 Hr 97.4 F 73 18 138/78 - Findings Detox History & Physical reviewed: Yes Concur with findings: Yes Inpatient Rehab Admission - Rehab Decision to Admit Inpatient rehab admission?: Yes - Initial Determination Are CD services needed?: Yes Free of communicable disease: Yes Not in need of hospitalization: Yes - Rehab Admission Criteria Previous failed treatment: Yes Poor recovery environment: Yes Comorbidities: Yes Lacks judgement: Yes Patient is meeting Inpatient Rehab admission criteria:: Yes
[2018-04-27 12:55] VITALS: BMI 30.4
[2018-04-27] MEDS: THIAMINE HCL 100 MG TABLET (FP) PO SCH (21:42)
[2018-04-27] MEDS: hydrOXYzine PAMOATE 50 MG CAPSULE (FP) PO PRN (21:42)
[2018-04-27] MEDS ORDERED: MELATONIN 5 MG TABLETS PO PRN (22:00)
[2018-04-28] MEDS: amLODIPine BESYLATE 5 MG TABLET (FP) PO SCH (10:09)
[2018-04-28] MEDS: PRENATAL VITAMINS W/ FOLIC ACID TABLET (FP) PO SCH (10:09)
[2018-04-28] MEDS: hydrOXYzine PAMOATE 50 MG CAPSULE (FP) PO PRN (10:09)
[2018-04-28] MEDS: NICOTINE 21 MG/24 HOURS TOPICAL PATCH TD SCH (10:11)
--- NOTE | 2018-04-28 10:13 | PN ---
S Progress Note Note: Pt was on Zyprexa 5mg qhs and gabapentin 300mg BID- there were started by in detox- will renew
[2018-04-28] MEDS ORDERED: METHADONE HCL 5 MG TABLET PO ONE (11:15)
[2018-04-28] MEDS: GABAPENTIN 300 MG CAPSULE (FP) PO SCH ×2 (11:22→21:54)
[2018-04-28] MEDS: cloNIDine HCL 0.1 MG TABLET PO PRN ×2 (15:01→21:55)
[2018-04-28] MEDS: THIAMINE HCL 100 MG TABLET (FP) PO SCH (21:54)
[2018-04-28] MEDS: OLANZapine 5 MG TABLET PO SCH (21:54)
[2018-04-29] MEDS: PRENATAL VITAMINS W/ FOLIC ACID TABLET (FP) PO SCH (09:05)
[2018-04-29] MEDS: GABAPENTIN 300 MG CAPSULE (FP) PO SCH ×2 (09:05→22:10)
[2018-04-29] MEDS: amLODIPine BESYLATE 5 MG TABLET (FP) PO SCH (09:05)
[2018-04-29] MEDS: NICOTINE 21 MG/24 HOURS TOPICAL PATCH TD SCH (09:05)
[2018-04-29] MEDS: cloNIDine HCL 0.1 MG TABLET PO PRN (09:06)
[2018-04-29] MEDS: OLANZapine 5 MG TABLET PO SCH (22:10)
[2018-04-29] MEDS: THIAMINE HCL 100 MG TABLET (FP) PO SCH (22:10)
[2018-04-30] MEDS: NICOTINE 21 MG/24 HOURS TOPICAL PATCH TD SCH (10:18)
[2018-04-30] MEDS: PRENATAL VITAMINS W/ FOLIC ACID TABLET (FP) PO SCH (10:18)
[2018-04-30] MEDS: amLODIPine BESYLATE 5 MG TABLET (FP) PO SCH (10:18)
[2018-04-30] MEDS: GABAPENTIN 300 MG CAPSULE (FP) PO SCH ×2 (10:18→22:03)
--- NOTE | 2018-04-30 14:35 | PN ---
S Progress Note Note: PATIENT C/O PRODUCTIVE COUGH WITH BROWN TINGED SPUTUM. UNWITNESSED BY RN. PATIENT REPORTS PREVIOUS HX OF SMOKING CIGARETTES AND CRACK/COCAINE AND PNA. PATIENT DENIES SOB, CHEST PAIN AND FEVER. Vital Signs Temperature 97.6 F 04/30/18 07:05 Pulse Rate 74 04/30/18 07:05 Respiratory Rate 18 04/30/18 07:05 Blood Pressure 124/80 04/30/18 07:05 O2 Sat by Pulse Oximetry (%) PE: ALERT AND ORIENTED X 3 SKIN WARM AND DRY CAR S1S2, RRR RESP CTA BL, O2 SATS 99% EXT FULL ROM, AMB AD ZULEYKA A/P: PRODUCTIVE COUGH H/O PNA TOBACCO USE WILL CONTINUE ROBITUSSIN PRN CHECK CXR CONTINUE TO MONITOR CLINICALLY
[2018-04-30] MEDS: cloNIDine HCL 0.1 MG TABLET PO PRN (17:04)
[2018-04-30] MEDS: THIAMINE HCL 100 MG TABLET (FP) PO SCH (22:03)
[2018-04-30] MEDS: OLANZapine 5 MG TABLET PO SCH (22:04)
[2018-05-01] MEDS: GABAPENTIN 300 MG CAPSULE (FP) PO SCH ×2 (10:04→21:50)
[2018-05-01] MEDS: PRENATAL VITAMINS W/ FOLIC ACID TABLET (FP) PO SCH (10:04)
[2018-05-01] MEDS: amLODIPine BESYLATE 5 MG TABLET (FP) PO SCH (10:04)
[2018-05-01] MEDS: NICOTINE 21 MG/24 HOURS TOPICAL PATCH TD SCH (10:05)
[2018-05-01] MEDS: cloNIDine HCL 0.1 MG TABLET PO PRN (12:27)
[2018-05-01] MEDS: THIAMINE HCL 100 MG TABLET (FP) PO SCH (21:50)
[2018-05-01] MEDS: OLANZapine 5 MG TABLET PO SCH (21:50)
--- NOTE | 2018-05-02 10:13 | PN ---
[facility] Progress Note Note: CXR RESULTS REVIEWED AND NEGATIVE FOR ABNORMALITIES. PATIENT INFORMED OF RESULTS. DISCUSSED SMOKING CESSATION WITH PATIENT. CONTINUE TO MONITOR CLINICALLY. Vital Signs Temperature 97.4 F L 05/02/18 06:57 Pulse Rate 74 05/02/18 06:57 Respiratory Rate 18 05/02/18 06:57 Blood Pressure 142/69 05/02/18 06:57 O2 Sat by Pulse Oximetry (%)
[2018-05-02] MEDS: PRENATAL VITAMINS W/ FOLIC ACID TABLET (FP) PO SCH (10:14)
[2018-05-02] MEDS: GABAPENTIN 300 MG CAPSULE (FP) PO SCH ×2 (10:14→21:13)
[2018-05-02] MEDS: amLODIPine BESYLATE 5 MG TABLET (FP) PO SCH (10:14)
[2018-05-02] MEDS: NICOTINE 21 MG/24 HOURS TOPICAL PATCH TD SCH (10:15)
[2018-05-02] MEDS: OLANZapine 5 MG TABLET PO SCH (21:13)
[2018-05-02] MEDS: THIAMINE HCL 100 MG TABLET (FP) PO SCH (21:13)
[2018-05-03] MEDS: NICOTINE 21 MG/24 HOURS TOPICAL PATCH TD SCH (10:12)
[2018-05-03] MEDS: GABAPENTIN 300 MG CAPSULE (FP) PO SCH ×2 (10:12→21:59)
[2018-05-03] MEDS: PRENATAL VITAMINS W/ FOLIC ACID TABLET (FP) PO SCH (10:12)
[2018-05-03] MEDS: amLODIPine BESYLATE 5 MG TABLET (FP) PO SCH (10:12)
[2018-05-03] MEDS: cloNIDine HCL 0.1 MG TABLET PO PRN (10:14)
[2018-05-03] MEDS: THIAMINE HCL 100 MG TABLET (FP) PO SCH (21:58)
[2018-05-03] MEDS: OLANZapine 5 MG TABLET PO SCH (21:58)
[2018-05-04] MEDS: GABAPENTIN 300 MG CAPSULE (FP) PO SCH ×2 (10:24→22:01)
[2018-05-04] MEDS: PRENATAL VITAMINS W/ FOLIC ACID TABLET (FP) PO SCH (10:24)
[2018-05-04] MEDS: amLODIPine BESYLATE 5 MG TABLET (FP) PO SCH (10:24)
[2018-05-04] MEDS: cloNIDine HCL 0.1 MG TABLET PO PRN (10:24)
[2018-05-04] MEDS: NICOTINE 21 MG/24 HOURS TOPICAL PATCH TD SCH (10:24)
[2018-05-04] MEDS: OLANZapine 5 MG TABLET PO SCH (22:01)
[2018-05-04] MEDS: THIAMINE HCL 100 MG TABLET (FP) PO SCH (22:01)
[2018-05-05] MEDS: GABAPENTIN 300 MG CAPSULE (FP) PO SCH ×2 (10:19→21:15)
[2018-05-05] MEDS: NICOTINE 21 MG/24 HOURS TOPICAL PATCH TD SCH (10:19)
[2018-05-05] MEDS: PRENATAL VITAMINS W/ FOLIC ACID TABLET (FP) PO SCH (10:19)
[2018-05-05] MEDS: amLODIPine BESYLATE 5 MG TABLET (FP) PO SCH (10:19)
[2018-05-05] MEDS: OLANZapine 5 MG TABLET PO SCH (21:15)
[2018-05-05] MEDS: THIAMINE HCL 100 MG TABLET (FP) PO SCH (21:15)
[2018-05-06] MEDS: GABAPENTIN 300 MG CAPSULE (FP) PO SCH ×2 (10:30→21:51)
[2018-05-06] MEDS: PRENATAL VITAMINS W/ FOLIC ACID TABLET (FP) PO SCH (10:30)
[2018-05-06] MEDS: NICOTINE 21 MG/24 HOURS TOPICAL PATCH TD SCH (10:30)
[2018-05-06] MEDS: amLODIPine BESYLATE 5 MG TABLET (FP) PO SCH (10:30)
[2018-05-06] MEDS: THIAMINE HCL 100 MG TABLET (FP) PO SCH (21:51)
[2018-05-06] MEDS: OLANZapine 5 MG TABLET PO SCH (21:52)
--- NOTE | 2018-05-07 10:17 | PN ---
BHS Progress Note (SOAP) Subjective: pt states he would like to taper off Zyprexa, does not like the side effects. On 5mg/day Referral made to MH consult
[2018-05-07] MEDS: PRENATAL VITAMINS W/ FOLIC ACID TABLET (FP) PO SCH (10:24)
[2018-05-07] MEDS: amLODIPine BESYLATE 5 MG TABLET (FP) PO SCH (10:24)
[2018-05-07] MEDS: GABAPENTIN 300 MG CAPSULE (FP) PO SCH ×2 (10:25→21:11)
[2018-05-07] MEDS: NICOTINE 21 MG/24 HOURS TOPICAL PATCH TD SCH (10:25)
[2018-05-07] MEDS ORDERED: PT OWN MED DRAWER 7, Y5N ONE (10:26)
[2018-05-07] MEDS: THIAMINE HCL 100 MG TABLET (FP) PO SCH (21:11)
[2018-05-07] MEDS: cloNIDine HCL 0.1 MG TABLET PO PRN (21:11)
[2018-05-07] MEDS: OLANZapine 5 MG TABLET PO SCH (21:12)
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
[2018-05-08] MEDS: PRENATAL VITAMINS W/ FOLIC ACID TABLET (FP) PO SCH (09:44)
[2018-05-08] MEDS: GABAPENTIN 300 MG CAPSULE (FP) PO SCH ×2 (09:44→21:32)
[2018-05-08] MEDS: amLODIPine BESYLATE 5 MG TABLET (FP) PO SCH (09:44)
[2018-05-08] MEDS: NICOTINE 21 MG/24 HOURS TOPICAL PATCH TD SCH (09:45)
[2018-05-08] MEDS: THIAMINE HCL 100 MG TABLET (FP) PO SCH (21:31)
[2018-05-08] MEDS: OLANZapine 5 MG TABLET PO SCH (21:32)
[2018-05-09] MEDS: PRENATAL VITAMINS W/ FOLIC ACID TABLET (FP) PO SCH (09:24)
[2018-05-09] MEDS: amLODIPine BESYLATE 5 MG TABLET (FP) PO SCH (09:24)
[2018-05-09] MEDS: NICOTINE 21 MG/24 HOURS TOPICAL PATCH TD SCH (09:24)
[2018-05-09] MEDS: GABAPENTIN 300 MG CAPSULE (FP) PO SCH ×2 (09:24→21:09)
[2018-05-09] MEDS ORDERED: ONDANSETRON *ODT* 4 MG TABLET SL PRN (09:39)
--- NOTE | 2018-05-09 09:49 | PN ---
S Progress Note Note: PATIENT C/O NAUSEA, NO VOMITING. DENIES ABD PAIN, FEVER AND DIARRHEA. Vital Signs Temperature 97.9 F 05/09/18 06:59 Pulse Rate 72 05/09/18 06:59 Respiratory Rate 18 05/09/18 06:59 Blood Pressure 136/88 05/09/18 06:59 O2 Sat by Pulse Oximetry (%) Laboratory Tests 05/04/18 05/05/18 05/06/18 06:53 06:26 06:24 POC Glucometer 97 90 76 PE: ALERT AND ORIENTED X 3 SKIN WARM AND DRY GI NT, ND, BM 05/08/18 EXT FULL ROM, AMB AD ZULEYKA A/P: NAUSEA PO FLUIDS AND GINGERALE ENCOURAGED ZOFRAN 8MG PO EVERY 8 HRS PRN ORDERED CONTINUE TO MONITOR
[2018-05-09] MEDS: cloNIDine HCL 0.1 MG TABLET PO PRN ×2 (13:18→21:35)
[2018-05-09] MEDS: OLANZapine 5 MG TABLET PO SCH (21:09)
[2018-05-09] MEDS: THIAMINE HCL 100 MG TABLET (FP) PO SCH (21:09)
[2018-05-10] MEDS: PRENATAL VITAMINS W/ FOLIC ACID TABLET (FP) PO SCH (09:44)
[2018-05-10] MEDS: amLODIPine BESYLATE 5 MG TABLET (FP) PO SCH (09:44)
[2018-05-10] MEDS: NICOTINE 21 MG/24 HOURS TOPICAL PATCH TD SCH (09:44)
[2018-05-10] MEDS: GABAPENTIN 300 MG CAPSULE (FP) PO SCH ×2 (10:16→21:51)
[2018-05-10] MEDS: OLANZapine 5 MG TABLET PO SCH (21:51)
[2018-05-10] MEDS: THIAMINE HCL 100 MG TABLET (FP) PO SCH (21:51)
[2018-05-11] MEDS: amLODIPine BESYLATE 5 MG TABLET (FP) PO SCH (10:14)
[2018-05-11] MEDS: PRENATAL VITAMINS W/ FOLIC ACID TABLET (FP) PO SCH (10:14)
[2018-05-11] MEDS: GABAPENTIN 300 MG CAPSULE (FP) PO SCH ×2 (10:14→21:58)
[2018-05-11] MEDS: NICOTINE 21 MG/24 HOURS TOPICAL PATCH TD SCH (10:14)
[2018-05-11] MEDS: cloNIDine HCL 0.1 MG TABLET PO PRN ×2 (10:58→17:53)
[2018-05-11] MEDS: THIAMINE HCL 100 MG TABLET (FP) PO SCH (21:58)
[2018-05-11] MEDS: OLANZapine 5 MG TABLET PO SCH (21:58)
[2018-05-12] MEDS: cloNIDine HCL 0.1 MG TABLET PO PRN ×2 (07:53→21:22)
[2018-05-12] MEDS: PRENATAL VITAMINS W/ FOLIC ACID TABLET (FP) PO SCH (09:27)
[2018-05-12] MEDS: amLODIPine BESYLATE 5 MG TABLET (FP) PO SCH (09:27)
[2018-05-12] MEDS: GABAPENTIN 300 MG CAPSULE (FP) PO SCH ×2 (09:27→21:22)
[2018-05-12] MEDS: NICOTINE 21 MG/24 HOURS TOPICAL PATCH TD SCH (09:27)
[2018-05-12] MEDS: THIAMINE HCL 100 MG TABLET (FP) PO SCH (21:21)
[2018-05-12] MEDS: OLANZapine 5 MG TABLET PO SCH (21:22)
[2018-05-13] MEDS: GABAPENTIN 300 MG CAPSULE (FP) PO SCH ×2 (09:50→21:48)
[2018-05-13] MEDS: PRENATAL VITAMINS W/ FOLIC ACID TABLET (FP) PO SCH (09:50)
[2018-05-13] MEDS: amLODIPine BESYLATE 5 MG TABLET (FP) PO SCH (09:50)
[2018-05-13] MEDS: cloNIDine HCL 0.1 MG TABLET PO PRN ×2 (09:50→17:48)
[2018-05-13] MEDS: NICOTINE 21 MG/24 HOURS TOPICAL PATCH TD SCH (09:50)
[2018-05-13] MEDS: THIAMINE HCL 100 MG TABLET (FP) PO SCH (21:48)
[2018-05-13] MEDS: OLANZapine 5 MG TABLET PO SCH (21:48)
[2018-05-14 06:54] VITALS: BP 139/82; PULSE 73; TEMP 97.9
[2018-05-14] MEDS: PRENATAL VITAMINS W/ FOLIC ACID TABLET (FP) PO SCH (09:02)
[2018-05-14] MEDS: cloNIDine HCL 0.1 MG TABLET PO PRN (09:02)
[2018-05-14] MEDS: amLODIPine BESYLATE 5 MG TABLET (FP) PO SCH (09:02)
[2018-05-14] MEDS: NICOTINE 21 MG/24 HOURS TOPICAL PATCH TD SCH (09:03)
[2018-05-14] MEDS: GABAPENTIN 300 MG CAPSULE (FP) PO SCH (09:03)
--- NOTE | 2018-05-14 12:03 | PN ---
[facility] Progress Note Note: DISCHARGE REHAB NOTE: PATIENT COMPLETED DISCHARGE TODAY. PATIENT STATES HE MET ALL REHAB GOALS AND IS MEDICALLY STABLE. PATIENT DENIES SI/HI AND IS SCHEDULED FOR OUTPATIENT TREATMENT AT [facility]. PATIENT SENT HTN MEDICATION TO PHARMACY HOWEVER, PATIENT REPORTS BEING RESTRICTED AND THAT HIS PCP CAN ONLY SEND MEDICATION. PATIENT TO FOLLOW UP WITH PCP CLINIC TODAY UPON D/C AD ENCOURAGED TO CONTINUE WITH OUTPATIENT TREATMENT TO PREVENT RELAPSE. Vital Signs Temperature 97.9 F 05/14/18 06:00 Pulse Rate 73 05/14/18 06:00 Respiratory Rate 20 05/14/18 06:00 Blood Pressure 139/82 05/14/18 06:00 O2 Sat by Pulse Oximetry (%) Laboratory Tests 05/04/18 05/05/18 05/06/18 06:53 06:26 06:24 POC Glucometer 97 90 76
== END 2018-05-14 09:35 | disposition home or self-care (01) | DRG 772 ==
LOC: YASAS 11:56 → Y3W 11:57 → Y5N 05-02 19:19 → Y3W 05-03 13:35
PROVIDERS: ADMIT Neuromusculoskeletal Medicine & OMM; ATTEND Neuromusculoskeletal Medicine & OMM
PROC: HZ42ZZZ Group Counseling for Substance Abuse Treatment, Cognitive-Behavioral (ICD-10-PCS; principal; 2018-04-27)
DX: F11.20 Opioid dependence, uncomplicated (principal); F14.20 Cocaine dependence, uncomplicated; F12.20 Cannabis dependence, uncomplicated; F17.210 Nicotine dependence, cigarettes, uncomplicated; F19.282 Other psychoactive substance dependence with psychoactive substance-induced sleep disorder; F19.24 Other psychoactive substance dependence with psychoactive substance-induced mood disorder; F31.9 Bipolar disorder, unspecified; I10 Essential (primary) hypertension; R05 Cough; Z87.01 Personal history of pneumonia (recurrent)
CPT/HCPCS: 71045-TC-FY; 82962; J0735; Q0162

== ENCOUNTER 2018-08-14 14:23 | Inpatient (IN) | payer OTHER ==
[2018-08-14 18:41] VITALS: BMI 28.5
--- NOTE | 2018-08-14 19:59 | HP ---
COWS - Scale Resting Pulse: 1= [place] 81-100 Sweatin= Chills/Flushing Restless Observation: 1= Difficult to Sit Still Pupil Size: 1= Pupils >than Normal Bone or Joint Aches: 1= Mild Discomfort Runny Nose/ Eye Tearin= Nasal Congestion GI Upset > 30mins: 1= Stomach Cramp Tremor Observation: 1= Tremor [place], Not Seen Yawning Observation: 1= 1-2x During Session Anxiety or Irritability: 1=Feels Anxious/Irritable Goose Flesh Skin: 3=Piloerection COWS Score: 13 CIWA Score Nausea/Vomitin Muscle Tremors: 3 Anxiety: 3 Agitation: 2 Paroxysmal Sweats: No Perspiration Orientation: 0-Oriented Tacttile Disturbances: 0-None Auditory Disturbances: 0-None Visual Disturbances: 0-None Headache: 1-Very Mild CIWA-Ar Total Score: 12 - Admission Criteria OASAS Guidelines: Admission for Medically Managed Detox: Requires at least one of the followin. CIWA greater than 12 2. Seizures within the past 24 hours 3. Delirium tremens within the past 24 hours 4. Hallucinations within the past 24 hours 5. Acute intervention needed for co occurring medical disorder 6. Acute intervention needed for co occurring psychiatric disorder 7. Severe withdrawal that cannot be handled at a lower level of care (continued vomiting, continued diarrhea, abnormal vital signs) requiring intravenous medication and/or fluids 8. Patient presents the following: CIWA greater than 12 Admission Criteria Met: Admission criteria met Admission ROS [facility] Chief Complaint: detox from alcohol, cocaine, heroin. 48yo with HTN, asthma, last in detox a month ago- does not remember where, states he restarted drug use almost immediately. Pt was last here about 2 months ago. Says he does not have medications for asthma/HTN b/c he now lives in [place] but his pharmacy is in [place] alcohol- drinks a pint of whiskey- does not remember if he had seizures/DT's heroin- 1 gram/day, sniffing, OD last month, d/w pt importance of narcan kit cocaine- 1 gram/day MJ- occ tobacco- 1 PPD DUR- no meds UTox- mop, riccardo, LEELA- neg Allergies/Adverse Reactions: Allergies Allergy/AdvReac Type Severity Reaction Status Date / Time Pork/Porcine Containing Allergy Severe Hives Verified 04/23/18 10:28 Products NKDA Allergy Uncoded 04/23/18 10:28 - Ebola screening Have you traveled outside of the country in the last 21 days: No (N) Have you had contact with anyone from an Ebola affected area: No Do you have a fever: No Patient History - Patient Medical History Hx Anemia: No Hx Asthma: Yes Hx Chronic Obstructive Pulmonary Disease (COPD): No Hx Cancer: No Hx Cardiac Disorders: No Hx Congestive Heart Failure: No Hx Hypertension: Yes Hx Hypercholesterolemia: No Hx Pacemaker: No HX Cerebrovascular Accident: No Hx Seizures: No Hx Dementia: No Hx Diabetes: No Hx Gastrointestinal Disorders: No Hx Liver Disease: No Hx Genitourinary Disorders: No Hx Sexually Transmitted Disorders: No Hx Renal Disease (ESRD): No Hx Thyroid Disease: No Hx Human Immunodeficiency Virus (HIV): No (01/03/18 negative) Hx Hepatitis C: No Hx Depression: Yes Hx Suicide Attempt: No Hx Bipolar Disorder: Yes Hx Schizophrenia: No - Patient Surgical History Past Surgical History: Yes Hx Neurologic Surgery: No Hx Cataract Extraction: No Hx Cardiac Surgery: No Hx Lung Surgery: No Hx Breast Surgery: No Hx Breast Biopsy: No Hx Abdominal Surgery: No Hx Appendectomy: No Hx Cholecystectomy: No Hx Genitourinary Surgery: No Hx Section: No Hx Orthopedic Surgery: No Other Surgical History: biopsy right kidney 2 years ago at [facility] was told to be ok Anesthesia Reaction: No - PPD History Documented Results: Positive w/o proof PPD to be Administered?: No - Smoking Cessation Smoking history: Current every day smoker Have you smoked in the past 12 months: Yes Aproximately how many cigarettes per day: 20 Hx Chewing Tobacco Use: No Initiated information on smoking cessation: Yes 'Breaking Loose' booklet given: 08/14/18 - Substances abused Heroin Other (specify): sniff Frequency: Daily Amount used: 7 bags Age of first use: 38 Date of last use: 08/12/18 Cocaine Substance route: Smoking Frequency: Daily Amount used: $100 Age of first use: 26 Date of last use: 08/12/18 Alcohol Substance route: Oral Frequency: Daily Amount used: 1/2 pint vodka Age of first use: 16 Date of last use: 08/12/18 Family Disease History - Family Disease History Family Disease History: Other: Father (dsa,alcohol,), Mother (espinoza,alcoho ,) Admission Physical Exam BHS - Vital Signs Vital Signs: Vital Signs - 24 hr 08/14/18 18:36 Temperature 75 F L Pulse Rate 75 Respiratory 19 Rate Blood Pressure 141/85 - Physical General Appearance: Yes: Moderate Distress, Tremorous, Irritable, Anxious HEENTM: Yes: Hearing grossly Normal, Normal Voice, KAROL, Pharynx Normal, Tm's normal Respiratory: Yes: Within Normal Limits, Lungs Clear Neck: Yes: Within Normal Limits, No masses,lesions,Nodules Cardiology: Yes: Within Normal Limits, Regular Rhythm, Regular Rate Abdominal: Yes: Within Normal Limits, Normal Bowel Sounds Genitourinary: Yes: Within Normal Limits Back: Yes: Within Normal Limits Extremities: Yes: Within Normal Limits, Normal Inspection Neurological: Yes: Within Normal Limits, airport maintenance chief II-XII NML intact, Fully Oriented, Alert, Motor Strength 5/5 Integumentary: Yes: Within Normal Limits, Normal Color Lymphatic: Yes: Within Normal Limits - Diagnostic (1) Cannabis dependence Current Visit: No Status: Acute (2) Cocaine dependence Current Visit: No Status: Acute Qualifiers: Substance use status: uncomplicated Qualified Code(s): F14.20 - Cocaine dependence, uncomplicated (3) Opioid dependence Current Visit: No Status: Acute (4) Asthma Current Visit: No Status: Chronic Qualifiers: Asthma severity: mild (5) HTN (hypertension) Current Visit: No Status: Chronic (6) Nicotine dependence Current Visit: No Status: Chronic Qualifiers: Nicotine product type: cigarettes Substance use status: uncomplicated Qualified Code(s): F17.210 - Nicotine dependence, cigarettes, uncomplicated (7) Opioid dependence with withdrawal Current Visit: No Status: Chronic Breathalyzer - Breathalyzer Breathalyzer: 0 Urine Drug Screen - Test Device Lot number: [id number] Expiration date: 07/18/19 - Control Is test valid?: Yes - Results Drug screen NEGATIVE: No Urine drug screen results: RICCARDO-Cocaine, MOP-Opiates Inpatient Rehab Admission - Rehab Decision to Admit Inpatient rehab admission?: No
[2018-08-14] MEDS ORDERED: IBUPROFEN 400 MG TABLET (FP) PO PRN (20:08)
[2018-08-14] MEDS ORDERED: cloNIDine HCL 0.1 MG TABLET PO PRN (20:08)
[2018-08-14] MEDS ORDERED: MAG HYDROX/AL HYDROX/SIMETH 30 ML UNIT-DOSE CUP PO PRN (20:08)
[2018-08-14] MEDS ORDERED: chlordiazePOXIDE HCL 25 MG CAPSULE PO PRN (20:08)
[2018-08-14] MEDS ORDERED: hydrOXYzine PAMOATE 25 MG CAPSULE (FP) PO PRN ×2 (20:08→20:13)
[2018-08-14] MEDS ORDERED: MAGNESIUM HYDROX 2400MG/30ML ORAL SUSPENSION 30 ML CUP PO PRN (20:08)
[2018-08-14] MEDS ORDERED: ONDANSETRON *ODT* 4 MG TABLET SL PRN (20:08)
[2018-08-14] MEDS ORDERED: chlordiazePOXIDE HCL 25 MG CAPSULE PO ONE (20:08)
[2018-08-14] MEDS ORDERED: MENTHOL/PHENOL 1 EACH UD MM PRN (20:08)
[2018-08-14] MEDS ORDERED: ACETAMINOPHEN 325 MG TABLET (FP) PO PRN ×2 (20:08)
[2018-08-14] MEDS ORDERED: MAGNESIUM CITRATE 300 ML BOTTLE PO PRN (20:08)
[2018-08-14] MEDS ORDERED: METHOCARBAMOL 500 MG TABLET PO PRN (20:08)
[2018-08-14] MEDS ORDERED: BISMUTH SUBSALICYLATE 262 MG/15 ML BTL PO PRN (20:08)
[2018-08-14] MEDS ORDERED: METHADONE HCL 10 MG TABLET (FOR DETOX USE ONLY) PO ONE ×2 (21:00→23:00)
[2018-08-14] MEDS: THIAMINE HCL 100 MG TABLET (FP) PO SCH (22:32)
[2018-08-14] MEDS: chlordiazePOXIDE HCL 25 MG CAPSULE PO SCH (22:32)
[2018-08-15] MEDS: ALBUTEROL SO4 0.083% IH SOL 2.5 MG/3 ML VIAL.NEB. NEB PRN ×2 (00:51→20:13)
[2018-08-15] MEDS: chlordiazePOXIDE HCL 25 MG CAPSULE PO SCH ×4 (06:08→22:28)
[2018-08-15 07:34] LABS: PH,URINE 6.5 (5.0-8.0); URINE APPEARANCE CLEAR; URINE BILIRUBIN NEGATIVE (NEGATIVE); URINE COLOR YELLOW; URINE GLUCOSE (UA) NEGATIVE (NEGATIVE); URINE KETONE 2+ (NEGATIVE); URINE LEUK ESTERASE NEGATIVE (NEGATIVE); URINE NITRITE NEGATIVE (NEGATIVE); URINE PROTEIN NEGATIVE (NEGATIVE)
[2018-08-15] MEDS ORDERED: METHADONE HCL 10 MG TABLET (FOR DETOX USE ONLY) PO ONE (10:00)
[2018-08-15] MEDS: PRENATAL VITAMINS W/ FOLIC ACID TABLET (FP) PO SCH (10:03)
[2018-08-15] MEDS: amLODIPine BESYLATE 5 MG TABLET (FP) PO SCH (10:04)
[2018-08-15 10:05] LABS: HEMATOCRIT 42.3 % (35.4-49); HEMOGLOBIN 14.2 GM/dL (11.7-16.9); MCH 31.7 pg (25.7-33.7); MCHC 33.6 g/dl (32.0-35.9); MEAN CELL VOLUME 94.4 fl (80-96); MEAN PLT VOLUME 8.9 fl (7.5-11.1); PLATELET COUNT 189 K/MM3 (134-434); RBC 4.49 M/mm3 (4.00-5.60); RDW 13.2 % (11.9-15.9); WHITE BLOOD COUNT 7.9 K/mm3 (4.0-10.0)
[2018-08-15 10:06] LABS: ALBUMIN 3.7 g/dl (3.4-5.0); BILIRUBIN,TOTAL 0.3 mg/dL (0.2-1); CALCIUM 8.9 mg/dL (8.5-10.1); CREATININE 1.3 mg/dL (0.55-1.3); POTASSIUM 3.4 mmol/L (3.5-5.1); TOT PROT 7.2 g/dl (6.4-8.2)
[2018-08-15] MEDS ORDERED: POTASSIUM CHLORIDE TABS 20 MEQ TABLET.ER (FP) PO ONE (12:00)
[2018-08-15] MEDS: ALBUTEROL SO4 8 GM HFA INHALER IH PRN ×2 (12:58→17:10)
--- NOTE | 2018-08-15 14:56 | PN ---
S CIWA - CIWA Score Nausea/Vomitin-No Nausea/No Vomiting Muscle Tremors: 4-Moderate,w/Arms Extend Anxiety: 4-Mod. Anxious/Guarded Agitation: 2 Paroxysmal Sweats: 1-Minimal Palms Moist Orientation: 2-Disoriented Date<2 days Tacttile Disturbances: 2-Mild Itch/Numbness/Burn Auditory Disturbances: 1-Very Mild Visual Disturbances: 0-None Headache: 0-None Present CIWA-Ar Total Score: 16 BHS COWS - Scale Resting Pulse: 0= [place] 80 or Below Sweatin= Chills/Flushing Restless Observation: 1= Difficult to Sit Still Pupil Size: 0= Normal to Room Light Bone or Joint Aches: 1= Mild Discomfort Runny Nose/ Eye Tearin= None GI Upset > 30mins: 0= None Tremor Observation of Outstretched Hands: 2= Slight Tremor Visible Yawning Observation: 1= 1-2x During Session Anxiety or Irritability: 2=Irritable/Anxious Goose Flesh Skin: 3=Piloerection COWS Score: 11 S Progress Note (SOAP) Subjective: Tremors, Anxious, Restless, Body Aches. Objective: PATIENT A & O X 2 (UNCERTAIN ABOUT CURRENT DAY / DATE). PATIENT OBSERVED AMBULATING ON UNIT UNASSISTED. IN NO ACUTE DISTRESS. 08/15/18 14:57 Vital Signs Temperature 98.1 F 08/15/18 09:31 Pulse Rate 69 08/15/18 09:31 Respiratory Rate 18 08/15/18 09:31 Blood Pressure 144/91 08/15/18 09:31 O2 Sat by Pulse Oximetry (%) Laboratory Tests 08/14/18 08/15/18 08/15/18 10:40 07:00 07:00 WBC 7.9 RBC 4.49 Hgb 14.2 Hct 42.3 MCV 94.4 MCH 31.7 MCHC 33.6 RDW 13.2 Plt Count 189 MPV 8.9 Sodium 140 Potassium 3.4 L Chloride 104 Carbon Dioxide 28 Anion Gap 9 BUN 5 L Creatinine 1.3 Est GFR (CKD-EPI)AfAm 75.31 Est GFR (CKD-EPI)NonAf 64.98 Random Glucose 81 Calcium 8.9 Total Bilirubin 0.3 AST 11 L ALT 22 Alkaline Phosphatase 107 Total Protein 7.2 Albumin 3.7 Urine Color Yellow Urine Appearance Clear Urine pH 6.5 Ur Specific [place] 1.023 Urine Protein Negative Urine Glucose (UA) Negative Urine Ketones 2+ H Urine Blood Negative Urine Nitrite Negative Urine Bilirubin Negative Urine Urobilinogen 1.0 Ur Leukocyte Esterase Negative RPR Titer HIV 1&2 Antibody Screen HIV P24 Antigen 08/15/18 08/15/18 07:00 07:00 WBC RBC Hgb Hct MCV MCH MCHC RDW Plt Count MPV Sodium Potassium Chloride Carbon Dioxide Anion Gap BUN Creatinine Est GFR (CKD-EPI)AfAm Est GFR (CKD-EPI)NonAf Random Glucose Calcium Total Bilirubin AST ALT Alkaline Phosphatase Total Protein Albumin Urine Color Urine Appearance Urine pH Ur Specific [place] Urine Protein Urine Glucose (UA) Urine Ketones Urine Blood Urine Nitrite Urine Bilirubin Urine Urobilinogen Ur Leukocyte Esterase RPR Titer Nonreactive HIV 1&2 Antibody Screen Negative HIV P24 Antigen Negative LABS NOTED. Assessment: 08/15/18 15:01 WITHDRAWAL SYMPTOMS. HYPOKALEMIA. Plan: CONTINUE DETOX. INCREASE DAILY PO FLUID / WATER INTAKE. K-DUR, 20 MEQ PO BID FOR LOW ADMISSION K LEVEL. REPEAT K LEVEL ON 08/17/2018.
[2018-08-15] MEDS: POTASSIUM CHLORIDE TABS 20 MEQ TABLET.ER (FP) PO SCH (17:10)
[2018-08-15] MEDS: MELATONIN 5 MG TABLETS PO PRN (22:28)
[2018-08-15] MEDS: THIAMINE HCL 100 MG TABLET (FP) PO SCH (22:28)
[2018-08-16] MEDS: chlordiazePOXIDE HCL 25 MG CAPSULE PO SCH ×3 (06:39→17:05)
[2018-08-16] MEDS ORDERED: METHADONE HCL 10 MG TABLET (FOR DETOX USE ONLY) PO ONE (10:00)
[2018-08-16] MEDS: amLODIPine BESYLATE 5 MG TABLET (FP) PO SCH (10:11)
[2018-08-16] MEDS: POTASSIUM CHLORIDE TABS 20 MEQ TABLET.ER (FP) PO SCH ×2 (10:11→17:05)
[2018-08-16] MEDS: PRENATAL VITAMINS W/ FOLIC ACID TABLET (FP) PO SCH (10:11)
--- NOTE | 2018-08-16 10:17 | PN ---
BHS COWS - Scale Resting Pulse: 0= IN 80 or Below Sweatin= Chills/Flushing Restless Observation: 1= Difficult to Sit Still Pupil Size: 1= Pupils >than Normal Bone or Joint Aches: 2= Severe Diffuse Aches Runny Nose/ Eye Tearin= Runny Nose/Eyes GI Upset > 30mins: 2= Nausea/Diarrhea Tremor Observation of Outstretched Hands: 2= Slight Tremor Visible Yawning Observation: 1= 1-2x During Session Anxiety or Irritability: 2=Irritable/Anxious Goose Flesh Skin: 0=Smooth Skin COWS Score: 14 S Progress Note (SOAP) Subjective: alert,irritable,anxious,interrupted sleep,tremor Objective: 08/16/18 10:15 Vital Signs Temperature 96.7 F L 08/16/18 09:47 Pulse Rate 68 08/16/18 09:47 Respiratory Rate 18 08/16/18 09:47 Blood Pressure 125/75 08/16/18 09:47 O2 Sat by Pulse Oximetry (%) 97 08/15/18 20:43 Assessment: 08/16/18 10:16 Laboratory Last Values WBC 7.9 K/mm3 (4.0-10.0) 08/15/18 07:00 RBC 4.49 M/mm3 (4.00-5.60) 08/15/18 07:00 Hgb 14.2 GM/dL (11.7-16.9) 08/15/18 07:00 Hct 42.3 % (35.4-49) 08/15/18 07:00 MCV 94.4 fl (80-96) 08/15/18 07:00 MCH 31.7 pg (25.7-33.7) 08/15/18 07:00 MCHC 33.6 g/dl (32.0-35.9) 08/15/18 07:00 RDW 13.2 % (11.9-15.9) 08/15/18 07:00 Plt Count 189 K/MM3 (134-434) 08/15/18 07:00 MPV 8.9 fl (7.5-11.1) 08/15/18 07:00 Sodium 140 mmol/L (136-145) 08/15/18 07:00 Potassium 3.4 mmol/L (3.5-5.1) L 08/15/18 07:00 Chloride 104 mmol/L (98-107) 08/15/18 07:00 Carbon Dioxide 28 mmol/L (21-32) 08/15/18 07:00 Anion Gap 9 MMOL/L (8-16) 08/15/18 07:00 BUN 5 mg/dL (7-18) L 08/15/18 07:00 Creatinine 1.3 mg/dL (0.55-1.3) 08/15/18 07:00 Est GFR (CKD-EPI)AfAm 75.31 08/15/18 07:00 Est GFR (CKD-EPI)NonAf 64.98 08/15/18 07:00 Random Glucose 81 mg/dL (74-106) 08/15/18 07:00 Calcium 8.9 mg/dL (8.5-10.1) 08/15/18 07:00 Total Bilirubin 0.3 mg/dL (0.2-1) 08/15/18 07:00 AST 11 U/L (15-37) L 08/15/18 07:00 ALT 22 U/L (13-61) 08/15/18 07:00 Alkaline Phosphatase 107 U/L (45-117) 08/15/18 07:00 Total Protein 7.2 g/dl (6.4-8.2) 08/15/18 07:00 Albumin 3.7 g/dl (3.4-5.0) 08/15/18 07:00 Urine Color Yellow 08/14/18 10:40 Urine Appearance Clear 08/14/18 10:40 Urine pH 6.5 (5.0-8.0) 08/14/18 10:40 Ur Specific [place] 1.023 (1.010-1.035) 08/14/18 10:40 Urine Protein Negative (NEGATIVE) 08/14/18 10:40 Urine Glucose (UA) Negative (NEGATIVE) 08/14/18 10:40 Urine Ketones 2+ (NEGATIVE) H 08/14/18 10:40 Urine Blood Negative (NEGATIVE) 08/14/18 10:40 Urine Nitrite Negative (NEGATIVE) 08/14/18 10:40 Urine Bilirubin Negative (NEGATIVE) 08/14/18 10:40 Urine Urobilinogen 1.0 mg/dL (0.2-1.0) 08/14/18 10:40 Ur Leukocyte Esterase Negative (NEGATIVE) 08/14/18 10:40 RPR Titer Nonreactive (NONREACTIVE) 08/15/18 07:00 HIV 1&2 Antibody Screen Negative 08/15/18 07:00 HIV P24 Antigen Negative 08/15/18 07:00 08/16/18 10:16 withdrawal symptom Plan: continue detox
[2018-08-16] MEDS: ALBUTEROL SO4 8 GM HFA INHALER IH PRN (14:32)
[2018-08-16] MEDS: THIAMINE HCL 100 MG TABLET (FP) PO SCH (22:22)
[2018-08-16] MEDS: chlordiazePOXIDE HCL 10 MG CAPSULE PO SCH (22:22)
[2018-08-16] MEDS: MELATONIN 5 MG TABLETS PO PRN (22:22)
[2018-08-16] MEDS ORDERED: chlordiazePOXIDE HCL 10 MG CAPSULE PO PRN (23:00)
[2018-08-17] MEDS: chlordiazePOXIDE HCL 10 MG CAPSULE PO SCH ×3 (06:15→16:55)
--- NOTE | 2018-08-17 09:18 | PN ---
S CIWA - CIWA Score Nausea/Vomitin-No Nausea/No Vomiting Muscle Tremors: 1-None Visible, but Secretary Anxiety: 2 Agitation: 1-Slight > Activity Paroxysmal Sweats: No Perspiration Orientation: 0-Oriented Tacttile Disturbances: 0-None Auditory Disturbances: 0-None Visual Disturbances: 1-Very Mild Sensitivity Headache: 1-Very Mild CIWA-Ar Total Score: 6 BHS Progress Note (SOAP) Subjective: alert,interrupted sleep,pain in the body Objective: 08/17/18 09:16 Vital Signs Temperature 96.4 F L 08/17/18 06:10 Pulse Rate 64 08/17/18 06:10 Respiratory Rate 18 08/17/18 06:10 Blood Pressure 119/61 08/17/18 06:10 O2 Sat by Pulse Oximetry (%) 97 08/15/18 20:43 Assessment: 08/17/18 09:17 withdrawal symptom Plan: continue detox,repeat k pending,discharge in am
[2018-08-17] MEDS ORDERED: METHADONE HCL 10 MG TABLET (FOR DETOX USE ONLY) PO ONE (10:00)
[2018-08-17] MEDS: PRENATAL VITAMINS W/ FOLIC ACID TABLET (FP) PO SCH (10:26)
[2018-08-17] MEDS: POTASSIUM CHLORIDE TABS 20 MEQ TABLET.ER (FP) PO SCH (10:26)
[2018-08-17] MEDS: amLODIPine BESYLATE 5 MG TABLET (FP) PO SCH (10:26)
[2018-08-17 18:08] VITALS: BP 127/78; PULSE 85; TEMP 98.2
[2018-08-17] MEDS ORDERED: chlordiazePOXIDE HCL 10 MG CAPSULE PO SCH (23:00)
[2018-08-18] MEDS ORDERED: METHADONE HCL 5 MG TABLET (FOR DETOX USE ONLY) PO ONE (06:00)
== END 2018-08-17 16:51 | disposition left against medical advice (07) | DRG 770 ==
LOC: YASAS 14:23 → Y6N 20:27
PROVIDERS: ADMIT Surgery; ATTEND Surgery
PROC: HZ2ZZZZ Detoxification Services for Substance Abuse Treatment (ICD-10-PCS; principal; 2018-08-14)
DX: F11.23 Opioid dependence with withdrawal (principal); F14.20 Cocaine dependence, uncomplicated; F12.20 Cannabis dependence, uncomplicated; F17.210 Nicotine dependence, cigarettes, uncomplicated; I10 Essential (primary) hypertension; E87.6 Hypokalemia; J45.909 Unspecified asthma, uncomplicated
CPT/HCPCS: 36415; 71046-TC-FY; 80053; 81003; 84132; 85027; 86593; 87389; 94640

== ENCOUNTER 2018-08-31 11:57 | Inpatient (IN) | payer OTHER ==
[2018-08-31 15:36] VITALS: BMI 27.0
--- NOTE | 2018-08-31 16:59 | HP ---
COWS - Scale Resting Pulse: 0= [place] 80 or Below Sweatin= Chills/Flushing Restless Observation: 1= Difficult to Sit Still Pupil Size: 0= Normal to Room Light Bone or Joint Aches: 1= Mild Discomfort Runny Nose/ Eye Tearin= Runny Nose/Eyes GI Upset > 30mins: 2= Nausea/Diarrhea Tremor Observation: 1= Tremor [place], Not Seen Yawning Observation: 2= >3x During Session Anxiety or Irritability: 2=Irritable/Anxious Goose Flesh Skin: 0=Smooth Skin COWS Score: 12 CIWA Score Nausea/Vomitin Muscle Tremors: 2 Anxiety: 3 Agitation: 0-Normal Activity Paroxysmal Sweats: 1-Minimal Palms Moist Orientation: 1-Uncertain about Date Tacttile Disturbances: 1-Very Mild Itch/Numbness Auditory Disturbances: 1-Very Mild Visual Disturbances: 0-None Headache: 0-None Present CIWA-Ar Total Score: 12 - Admission Criteria [facility]AS[facility] Guidelines: Admission for Medically Managed Detox: Requires at least one of the followin. CIWA greater than 12 2. Seizures within the past 24 hours 3. Delirium tremens within the past 24 hours 4. Hallucinations within the past 24 hours 5. Acute intervention needed for co occurring medical disorder 6. Acute intervention needed for co occurring psychiatric disorder 7. Severe withdrawal that cannot be handled at a lower level of care (continued vomiting, continued diarrhea, abnormal vital signs) requiring intravenous medication and/or fluids 8. Patient presents the following: CIWA greater than 12 Admission Criteria Met: Admission criteria met Admission ROS [facility] Chief Complaint: alcohol and heroin detox Allergies/Adverse Reactions: Allergies Allergy/AdvReac Type Severity Reaction Status Date / Time Pork/Porcine Containing Allergy Severe Hives Verified 08/14/18 21:07 Products No Known Drug Allergies Allergy Verified 08/31/18 17:11 NKDA Allergy Uncoded 08/14/18 21:07 History of Present Illness: 48yo male with hx of alcohol, heroin (intranasal), and cocaine dependence is here seeking inpatient detox, patient is not known to program, reports no significant period of sobriety, motivated to attend rehab post detox. Hx of overdose x 4, with last episode two days ago. PMHX: HTN, asthma. Psych: Bipolar. Denies SI/HI Denies seizures or blackouts. Exam Limitations: No Limitations - Ebola screening Have you traveled outside of the country in the last 21 days: No (N) Have you had contact with anyone from an Ebola affected area: No Do you have a fever: No - Review of Systems Constitutional: Chills, Loss of Appetite, Changes in sleep, Unintentional Wgt. Loss EENT: reports: Other (rhinorrhea) Respiratory: reports: No Symptoms reported Cardiac: reports: No Symptoms Reported GI: reports: Nausea, Poor Appetite, Poor Fluid Intake : reports: No Symptoms Reported Musculoskeletal: reports: Back Pain Integumentary: reports: No Symptoms Reported Neuro: reports: No Symptoms reported Endocrine: reports: Change in Weight Hematology: reports: No Symptoms Reported Psychiatric: reports: Orientated x3, Anxious Other Systems: Reviewed and Negative Patient History - Patient Medical History Hx Anemia: No Hx Asthma: Yes Hx Chronic Obstructive Pulmonary Disease (COPD): No Hx Cancer: No Hx Cardiac Disorders: No Hx Congestive Heart Failure: No Hx Hypertension: Yes Hx Hypercholesterolemia: No Hx Pacemaker: No HX Cerebrovascular Accident: No Hx Seizures: No Hx Dementia: No Hx Diabetes: No Hx Gastrointestinal Disorders: No Hx Liver Disease: No Hx Genitourinary Disorders: No Hx Sexually Transmitted Disorders: No Hx Renal Disease (ESRD): No Hx Thyroid Disease: No Hx Human Immunodeficiency Virus (HIV): No (01/03/18 negative) Hx Hepatitis C: No Hx Depression: No Hx Suicide Attempt: No Hx Bipolar Disorder: Yes Hx Schizophrenia: No - Patient Surgical History Past Surgical History: Yes Hx Neurologic Surgery: No Hx Cataract Extraction: No Hx Cardiac Surgery: No Hx Lung Surgery: No Hx Breast Surgery: No Hx Breast Biopsy: No Hx Abdominal Surgery: No Hx Appendectomy: No Hx Cholecystectomy: No Hx Genitourinary Surgery: No Hx Section: No Hx Orthopedic Surgery: No Other Surgical History: biopsy right kidney 2 years ago at [facility] was told to be ok Anesthesia Reaction: No - PPD History Previous Implant?: No (NEG Chest x-ray 08/15/18) Documented Results: Negative w/o proof PPD to be Administered?: No - Smoking Cessation Smoking history: Current every day smoker Have you smoked in the past 12 months: Yes Aproximately how many cigarettes per day: 20 Hx Chewing Tobacco Use: No Initiated information on smoking cessation: Yes 'Breaking Loose' booklet given: 08/31/18 - Substance & Tx. History Hx Alcohol Use: Yes Hx Substance Use: Yes Substance Use Type: Alcohol, Cocaine, Heroin Hx Substance Use Treatment: Yes ([facility] detox 08/14/18 - 08/17/18 ) - Substances abused Heroin Other (specify): sniff Substance route: Inhalation Frequency: Daily Amount used: a bundle Age of first use: 39 Date of last use: 08/29/18 Cocaine Substance route: Smoking Frequency: Daily Amount used: 3-4 grams, 150usd Age of first use: 19 Date of last use: 08/29/18 Alcohol Substance route: Oral Frequency: Daily Amount used: 1/2 pint vodka Age of first use: 19 Date of last use: 08/12/18 Family Disease History - Family Disease History Family Disease History: Other: Father (dsa,alcohol,), Mother (dsa,alcoho ,) Admission Physical Exam [facility] - Vital Signs Vital Signs: Vital Signs - 24 hr 08/31/18 15:29 Temperature 97.7 F Pulse Rate 73 Respiratory 20 Rate Blood Pressure 140/82 - Physical General Appearance: Yes: Disheveled, Thin, Sweating, Anxious HEENTM: Yes: EOMI, Hearing grossly Normal, Normal ENT Inspection, Normocephalic , Normal Voice, KAROL, Pharynx Normal, Tm's normal, Rhinorrhea, Other (cheilitis) Respiratory: Yes: Chest Non-Tender, Lungs Clear, No Respiratory Distress, No Accessory Muscle Use, Wheezing Neck: Yes: Within Normal Limits Breast: Yes: Breast Exam Deferred Cardiology: Yes: Regular Rhythm, Regular Rate Abdominal: Yes: Normal Bowel Sounds, Non Tender Genitourinary: Yes: Within Normal Limits Back: Yes: Normal Inspection Musculoskeletal: Yes: full range of Motion, Gait Steady, Pelvis Stable Extremities: Yes: Normal Capillary Refill, Normal Inspection, Normal Range of Motion, Non-Tender Neurological: Yes: supervisor knitting II-XII NML intact, Fully Oriented, Alert, Motor Strength 5/5, Depressed Affect Integumentary: Yes: Normal Color, Warm, Diaphoresis Lymphatic: Yes: Within Normal Limits - Diagnostic (1) Cocaine dependence Current Visit: Yes Status: Acute Qualifiers: Substance use status: uncomplicated Qualified Code(s): F14.20 - Cocaine dependence, uncomplicated (2) Alcohol dependence with uncomplicated withdrawal Current Visit: Yes Status: Chronic (3) Asthma Current Visit: Yes Status: Chronic Qualifiers: Asthma severity: mild (4) HTN (hypertension) Current Visit: Yes Status: Chronic (5) Nicotine dependence Current Visit: Yes Status: Chronic Qualifiers: Nicotine product type: cigarettes Substance use status: uncomplicated Qualified Code(s): F17.210 - Nicotine dependence, cigarettes, uncomplicated (6) Opioid dependence with withdrawal Current Visit: Yes Status: Chronic Cleared for Admission S - Detox or Rehab [facility] Level of Care: Medically Managed Detox Regimen/Protocol: Methadone/Librium Breathalyzer - Breathalyzer Breathalyzer: 0 Urine Drug Screen - Test Device Lot number: [id number] Expiration date: 07/18/19 - Control Is test valid?: Yes - Results Drug screen NEGATIVE: No Urine drug screen results: ALESSANDRA-Cocaine, MOP-Opiates Inpatient Rehab Admission - Rehab Decision to Admit Inpatient rehab admission?: No
[2018-08-31] MEDS ORDERED: MAGNESIUM CITRATE 300 ML BOTTLE PO PRN (17:02)
[2018-08-31] MEDS ORDERED: METHOCARBAMOL 500 MG TABLET PO PRN (17:02)
[2018-08-31] MEDS ORDERED: cloNIDine HCL 0.1 MG TABLET PO PRN (17:02)
[2018-08-31] MEDS ORDERED: MENTHOL/PHENOL 1 EACH UD MM PRN (17:02)
[2018-08-31] MEDS ORDERED: IBUPROFEN 400 MG TABLET (FP) PO PRN (17:02)
[2018-08-31] MEDS ORDERED: BISMUTH SUBSALICYLATE 524 MG/30 ML UD PO PRN (17:02)
[2018-08-31] MEDS ORDERED: MELATONIN 5 MG TABLETS PO PRN (17:02)
[2018-08-31] MEDS ORDERED: MAG HYDROX/AL HYDROX/SIMETH 30 ML UNIT-DOSE CUP PO PRN (17:02)
[2018-08-31] MEDS ORDERED: MAGNESIUM HYDROX 2400MG/30ML ORAL SUSPENSION 30 ML CUP PO PRN (17:02)
[2018-08-31] MEDS ORDERED: ACETAMINOPHEN 325 MG TABLET (FP) PO PRN ×2 (17:02)
[2018-08-31] MEDS ORDERED: ALBUTEROL SO4 0.083% IH SOL 2.5 MG/3 ML VIAL.NEB. NEB PRN (17:13)
[2018-08-31] MEDS: chlordiazePOXIDE HCL 25 MG CAPSULE PO PRN (18:58)
[2018-08-31] MEDS: THIAMINE HCL 100 MG TABLET (FP) PO SCH (21:59)
[2018-08-31] MEDS: chlordiazePOXIDE HCL 25 MG CAPSULE PO SCH (22:00)
[2018-08-31] MEDS ORDERED: METHADONE HCL 10 MG TABLET (FOR DETOX USE ONLY) PO ONE (23:00)
[2018-09-01] MEDS: chlordiazePOXIDE HCL 25 MG CAPSULE PO SCH ×4 (05:27→22:23)
[2018-09-01] MEDS ORDERED: METHADONE HCL 10 MG TABLET (FOR DETOX USE ONLY) PO ONE (10:00)
[2018-09-01] MEDS: PRENATAL VITAMINS W/ FOLIC ACID TABLET (FP) PO SCH (10:37)
[2018-09-01] MEDS: amLODIPine BESYLATE 5 MG TABLET (FP) PO SCH (10:39)
[2018-09-01 10:54] LABS: ALBUMIN 3.2 g/dl (3.4-5.0); BILIRUBIN,TOTAL 0.3 mg/dL (0.2-1); BLOOD UREA NITROGEN 9.2 mg/dL (7-18); CALCIUM 8.5 mg/dL (8.5-10.1); CREATININE 1.2 mg/dL (0.55-1.3); POTASSIUM 4.1 mmol/L (3.5-5.1); TOT PROT 6.6 g/dl (6.4-8.2)
--- NOTE | 2018-09-01 10:57 | PN ---
[facility] CIWA - CIWA Score Nausea/Vomitin-No Nausea/No Vomiting Muscle Tremors: 2 Anxiety: 2 Agitation: 2 Paroxysmal Sweats: 3 Orientation: 0-Oriented Tacttile Disturbances: 0-None Auditory Disturbances: 0-None Visual Disturbances: 0-None Headache: 2-Mild CIWA-Ar Total Score: 11 BHS COWS - Scale Resting Pulse: 0= [place] 80 or Below Sweatin= Chills/Flushing Restless Observation: 1= Difficult to Sit Still Pupil Size: 0= Normal to Room Light Bone or Joint Aches: 2= Severe Diffuse Aches Runny Nose/ Eye Tearin= None GI Upset > 30mins: 0= None Tremor Observation of Outstretched Hands: 2= Slight Tremor Visible Yawning Observation: 1= 1-2x During Session Anxiety or Irritability: 2=Irritable/Anxious Goose Flesh Skin: 0=Smooth Skin COWS Score: 9 S Progress Note (SOAP) Subjective: c/o irritability, anxiety, shakes, cough, and headache Objective: 09/01/18 10:56 Vital Signs 09/01/18 09/01/18 09/01/18 03:30 06:14 06:30 Temperature 97.0 F L Pulse Rate 53 L Respiratory 18 18 18 Rate Blood Pressure 108/74 09/01/18 09:33 Temperature 96.5 F L Pulse Rate 60 Respiratory 20 Rate Blood Pressure 124/75 Lab Results Sodium 140 mmol/L (136-145) 09/01/18 07:40 Potassium 4.1 mmol/L (3.5-5.1) 09/01/18 07:40 Chloride 104 mmol/L (98-107) 09/01/18 07:40 Carbon Dioxide 32 mmol/L (21-32) 09/01/18 07:40 Anion Gap 4 MMOL/L (8-16) L 09/01/18 07:40 BUN 9.2 mg/dL (7-18) 09/01/18 07:40 Creatinine 1.2 mg/dL (0.55-1.3) 09/01/18 07:40 Random Glucose 86 mg/dL (74-106) 09/01/18 07:40 Calcium 8.5 mg/dL (8.5-10.1) 09/01/18 07:40 Labs noted. Assessment: 09/01/18 10:57 AOX3, in no acute distress Full ROM, ambulating in the unit. Withdrawal symptoms. Plan: continue detox. increase fluids.
[2018-09-01 11:05] LABS: URINE APPEARANCE TURBID; URINE BILIRUBIN NEGATIVE (NEGATIVE); URINE COLOR YELLOW; URINE GLUCOSE (UA) NEGATIVE (NEGATIVE); URINE KETONE NEGATIVE (NEGATIVE); URINE LEUK ESTERASE NEGATIVE (NEGATIVE); URINE NITRITE NEGATIVE (NEGATIVE); URINE PROTEIN NEGATIVE (NEGATIVE); URINE UROBILINOGEN 0.2 mg/dL (0.2-1.0)
[2018-09-01 11:08] LABS: HEMOGLOBIN 13.3 GM/dL (11.7-16.9); MCH 31.3 pg (25.7-33.7); MCHC 33.4 g/dl (32.0-35.9); MEAN CELL VOLUME 93.8 fl (80-96); MEAN PLT VOLUME 8.2 fl (7.5-11.1); RBC 4.26 M/mm3 (4.00-5.60); RDW 13.2 % (11.9-15.9); WHITE BLOOD COUNT 10.1 K/mm3 (4.0-10.0)
--- NOTE | 2018-09-01 13:23 | CONSULT ---
[facility] Psychiatric Consult - Data Date of interview: 09/01/18 Admission source: [facility] Identifying data: Readmission to [facility] for this 48 y/o AA male self- referred for detoxification treatment (heroin, cocaine, alcohol, cannabis). Examined at [address] [place] [address]. Patient is single, a father fo two, domiciled, unemployed and supported on SSI benefits. Substance Abuse History: Discussed in this session. Substance abuse is confirmed by the patient. Details in current [facility] report as follows : Smoking history: Current every day smoker. Have you smoked in the past 12 months: Yes. Aproximately how many cigarettes per day: 20. Hx Chewing Tobacco Use: No. Initiated information on smoking cessation: Yes. 'Breaking Loose' booklet given : 08/31/18. - Substance & Tx. History. Hx Alcohol Use: Yes. Hx Substance Use : Yes. Substance Use Type: Alcohol, Cocaine, Heroin. Hx Substance Use Treatment: Yes ([facility] detox 08/14/18 - 08/17/18 ). - Substances abused. Heroin. Other (specify): sniff. Substance route: Inhalation. Frequency: Daily. Amount used: a bundle. Age of first use: 39. Date of last use: . Cocaine. Substance route: Smoking. Frequency: Daily. Amount used: 3- 4 grams, 150usd. Age of first use: 19. Date of last use: 08/29/18. Alcohol. Substance route: Oral. Frequency: Daily. Amount used: 1/2 pint vodka. Age of first use: 19. Date of last use: 08/12/18 Medical History: Medical profile is remarkable for bronchial asthma, hypertension and history of positive PPD (reportedly treated with INH + B6 in the ). Psychiatric History: Patient reports a history of psychiatric hospitalizations ( [facility], [facility], [facility], [facility] in [facility]). Hospitalized as recently as March 2018 at [facility]. Mr Rothman indicates that he was discharged on a regimen of olanzapine 10 mg/day + gabapentin 300 mg/tid + klonopin (dose not recalled). Patient was, at the time, referred to [facility] for psychiatric OPD care. No adherence to medications + OPD follow-up for past three months. Patient endorses a history of multiple suicide attempts via overdoses with drugs and/or medications. Physical/Sexual Abuse/Trauma History: Patient denies history of abuse. Additional Comment: Urine drug screen results: ALESSANDRA-Cocaine, MOP-Opiates. Noted. Mental Status Exam - Mental Status Exam Alert and Oriented to: Time, Place, Person Cognitive Function: Good Patient Appearance: Unkempt (tall stature, muscular built), Disheveled Mood: Withdrawn, Hopeful Affect: Appropriate, Normal Range Patient Behavior: Fatigued, Appropriate, Cooperative Speech Pattern: Clear, Appropriate Voice Loudness: Normal Thought Process: Intact, Goal Oriented Thought Disorder: Not Present Hallucinations: Denies Suicidal Ideation: Denies Homicidal Ideation: Denies Insight/Judgement: Poor Sleep: Poorly, Difficulty falling asleep Appetite: Good Muscle strength/Tone: Normal Gait/Station: Normal Psychiatric Findings - Problem List ([place] 1, 2,3) (1) Alcohol dependence with uncomplicated withdrawal Current Visit: Yes Status: Acute (2) Opioid dependence with withdrawal Current Visit: Yes Status: Acute (3) Cocaine dependence Current Visit: Yes Status: Chronic Qualifiers: Substance use status: uncomplicated Qualified Code(s): F14.20 - Cocaine dependence, uncomplicated (4) Nicotine dependence Current Visit: Yes Status: Chronic Qualifiers: Nicotine product type: cigarettes Substance use status: uncomplicated Qualified Code(s): F17.210 - Nicotine dependence, cigarettes, uncomplicated (5) Substance induced mood disorder Current Visit: Yes Status: Chronic (6) History of bipolar disorder Current Visit: Yes Status: Chronic (7) Insomnia Current Visit: Yes Status: Chronic (8) Non-compliance Current Visit: Yes Status: Chronic - Initial Treatment Plan Initial Treatment Plan: Psychoeducation. Records at [facility] : revisited. Sleep hygiene. Detoxification. Relapse prevention (MAT) : discussed in this session. Medications : zyprexa 10 mg po hs + gabapentin 300 mg po bid. Ordered. Side effects/benefits of both drugs are discussed with the patient. Mr Rothman has verbalized his consent to follow this plan of care. Observation.
[2018-09-01 15:02] LABS: PLATELET COUNT 411 K/MM3 (134-434)
[2018-09-01] MEDS: OLANZapine 10 MG TABLET PO SCH (22:23)
[2018-09-01] MEDS: THIAMINE HCL 100 MG TABLET (FP) PO SCH (22:23)
[2018-09-01] MEDS: GABAPENTIN 300 MG CAPSULE (FP) PO SCH (22:23)
[2018-09-02] MEDS: chlordiazePOXIDE HCL 25 MG CAPSULE PO SCH ×3 (07:13→17:55)
[2018-09-02] MEDS ORDERED: METHADONE HCL 10 MG TABLET (FOR DETOX USE ONLY) PO ONE (10:00)
[2018-09-02] MEDS: PRENATAL VITAMINS W/ FOLIC ACID TABLET (FP) PO SCH (10:23)
[2018-09-02] MEDS: GABAPENTIN 300 MG CAPSULE (FP) PO SCH ×2 (10:25→22:47)
[2018-09-02] MEDS: amLODIPine BESYLATE 5 MG TABLET (FP) PO SCH (10:25)
--- NOTE | 2018-09-02 11:52 | PN ---
S CIWA - CIWA Score Nausea/Vomitin Muscle Tremors: 2 Anxiety: 1-Mildly Anxious Agitation: 1-Slight > Activity Paroxysmal Sweats: 1-Minimal Palms Moist Orientation: 0-Oriented Tacttile Disturbances: 0-None Auditory Disturbances: 0-None Visual Disturbances: 0-None Headache: 1-Very Mild CIWA-Ar Total Score: 8 BHS COWS - Scale Resting Pulse: 0= [place] 80 or Below Sweatin=Flushed/Facial Moisture Restless Observation: 1= Difficult to Sit Still Pupil Size: 1= Pupils >than Normal Bone or Joint Aches: 1= Mild Discomfort Runny Nose/ Eye Tearin= Nasal Congestion GI Upset > 30mins: 1= Stomach Cramp Tremor Observation of Outstretched Hands: 1= Tremor [place], Not Seen Yawning Observation: 0= None Anxiety or Irritability: 2=Irritable/Anxious Goose Flesh Skin: 0=Smooth Skin COWS Score: 10 BHS Progress Note (SOAP) Subjective: GI CRAMPS AND SWEATING POOR SLEEP Objective: 09/02/18 11:51 Vital Signs - 24 hr 09/01/18 09/01/18 09/01/18 13:40 18:00 21:37 Temperature 96.4 F L 96.8 F L 96.7 F L Pulse Rate 64 69 67 Respiratory 18 16 19 Rate Blood Pressure 118/71 106/68 117/76 09/02/18 09/02/18 09/02/18 00:30 03:30 06:30 Temperature Pulse Rate Respiratory 18 18 18 Rate Blood Pressure 09/02/18 09/02/18 06:40 09:23 Temperature 97.3 F L 97.2 F L Pulse Rate 60 56 L Respiratory 18 18 Rate Blood Pressure 99/53 L 106/71 Laboratory Tests 09/01/18 09/01/18 09/01/18 07:40 07:40 09:00 WBC 10.1 H RBC 4.26 Hgb 13.3 Hct 40.0 MCV 93.8 MCH 31.3 MCHC 33.4 RDW 13.2 Plt Count 411 D MPV 8.2 Sodium 140 Potassium 4.1 Chloride 104 Carbon Dioxide 32 Anion Gap 4 L BUN 9.2 Creatinine 1.2 Est GFR (CKD-EPI)AfAm 82.96 Est GFR (CKD-EPI)NonAf 71.58 Random Glucose 86 Calcium 8.5 Total Bilirubin 0.3 AST 13 L ALT 20 Alkaline Phosphatase 94 Total Protein 6.6 Albumin 3.2 L Urine Color Yellow Urine Appearance Turbid Urine pH 6.0 Ur Specific [place] 1.024 Urine Protein Negative Urine Glucose (UA) Negative Urine Ketones Negative Urine Blood Negative Urine Nitrite Negative Urine Bilirubin Negative Urine Urobilinogen 0.2 Ur Leukocyte Esterase Negative ALERT AMBULATORY ORIENTED Assessment: 09/02/18 11:52 OPIATE DEP/ETOH DEP IN WITHDRAWAL Plan: CONT DETOX PROTOCOL
[2018-09-02] MEDS: chlordiazePOXIDE HCL 25 MG CAPSULE PO PRN (18:19)
[2018-09-02] MEDS: THIAMINE HCL 100 MG TABLET (FP) PO SCH (22:46)
[2018-09-02] MEDS: chlordiazePOXIDE HCL 10 MG CAPSULE PO SCH (22:47)
[2018-09-02] MEDS: OLANZapine 10 MG TABLET PO SCH (22:48)
[2018-09-02] MEDS ORDERED: chlordiazePOXIDE HCL 10 MG CAPSULE PO PRN (23:00)
[2018-09-03] MEDS: chlordiazePOXIDE HCL 10 MG CAPSULE PO SCH ×3 (05:39→17:30)
[2018-09-03] MEDS ORDERED: METHADONE HCL 10 MG TABLET (FOR DETOX USE ONLY) PO ONE (10:00)
[2018-09-03] MEDS: GABAPENTIN 300 MG CAPSULE (FP) PO SCH ×2 (10:24→22:26)
[2018-09-03] MEDS: PRENATAL VITAMINS W/ FOLIC ACID TABLET (FP) PO SCH (10:25)
[2018-09-03] MEDS: amLODIPine BESYLATE 5 MG TABLET (FP) PO SCH (11:46)
--- NOTE | 2018-09-03 14:32 | PN ---
S CIWA - CIWA Score Nausea/Vomitin-No Nausea/No Vomiting Muscle Tremors: None Anxiety: 3 Agitation: 2 Paroxysmal Sweats: No Perspiration Orientation: 0-Oriented Tacttile Disturbances: 1-Very Mild Itch/Numbness Auditory Disturbances: 0-None Visual Disturbances: 1-Very Mild Sensitivity Headache: 0-None Present CIWA-Ar Total Score: 7 S COWS - Scale Resting Pulse: 1= [place] 81-100 Sweatin= No chills or Flushing Restless Observation: 1= Difficult to Sit Still Pupil Size: 0= Normal to Room Light Bone or Joint Aches: 0= None Runny Nose/ Eye Tearin= None GI Upset > 30mins: 0= None Tremor Observation of Outstretched Hands: 0= None Yawning Observation: 1= 1-2x During Session Anxiety or Irritability: 2=Irritable/Anxious Goose Flesh Skin: 0=Smooth Skin COWS Score: 5 S Progress Note (SOAP) Subjective: Anxious. Objective: PATIENT A & O X 3, OBSERVED AMBULATING ON UNIT UNASSISTED. IN NO ACUTE DISTRESS. 09/03/18 14:31 Vital Signs Temperature 97.3 F L 09/03/18 13:17 Pulse Rate 85 09/03/18 13:17 Respiratory Rate 18 09/03/18 13:17 Blood Pressure 123/79 09/03/18 13:17 O2 Sat by Pulse Oximetry (%) Laboratory Tests 09/01/18 09/01/18 09/01/18 07:40 07:40 09:00 WBC 10.1 H RBC 4.26 Hgb 13.3 Hct 40.0 MCV 93.8 MCH 31.3 MCHC 33.4 RDW 13.2 Plt Count 411 D MPV 8.2 Sodium 140 Potassium 4.1 Chloride 104 Carbon Dioxide 32 Anion Gap 4 L BUN 9.2 Creatinine 1.2 Est GFR (CKD-EPI)AfAm 82.96 Est GFR (CKD-EPI)NonAf 71.58 Random Glucose 86 Calcium 8.5 Total Bilirubin 0.3 AST 13 L ALT 20 Alkaline Phosphatase 94 Total Protein 6.6 Albumin 3.2 L Urine Color Yellow Urine Appearance Turbid Urine pH 6.0 Ur Specific [place] 1.024 Urine Protein Negative Urine Glucose (UA) Negative Urine Ketones Negative Urine Blood Negative Urine Nitrite Negative Urine Bilirubin Negative Urine Urobilinogen 0.2 Ur Leukocyte Esterase Negative LABS NOTED. Assessment: 09/03/18 14:31 WITHDRAWAL SYMPTOMS. Plan: CONTINUE DETOX. PATIENT SCHEDULED FOR D/C TOMORROW.
[2018-09-03] MEDS: THIAMINE HCL 100 MG TABLET (FP) PO SCH (22:26)
[2018-09-03] MEDS: OLANZapine 10 MG TABLET PO SCH (22:26)
[2018-09-03] MEDS ORDERED: chlordiazePOXIDE HCL 10 MG CAPSULE PO SCH (23:00)
[2018-09-04] MEDS ORDERED: METHADONE HCL 5 MG TABLET (FOR DETOX USE ONLY) PO ONE (06:00)
[2018-09-04] MEDS: GABAPENTIN 300 MG CAPSULE (FP) PO SCH (09:12)
[2018-09-04] MEDS: PRENATAL VITAMINS W/ FOLIC ACID TABLET (FP) PO SCH (09:12)
[2018-09-04] MEDS: amLODIPine BESYLATE 5 MG TABLET (FP) PO SCH (09:12)
[2018-09-04 09:37] VITALS: BP 126/73; PULSE 90; TEMP 97.2
--- NOTE | 2018-09-04 16:36 | DS ---
[facility] Detox Discharge Summary Admission Date: 08/31/18 Discharge Date: 09/04/18 - History Present History: Alcohol Dependence, Cocaine Dependence, Opioid Dependence Additional Comments: PATIENT GOING TO [facility] ([facility], [place]) FOR AFTERCARE. PATIENT WAS DISCHARGED FROM DETOX UNIT IN STABLE MEDICAL CONDITION. Pertinent Past History: HTN, Asthma, Bipolar disorder, Nicotine Dependence, Insomnia. - Physical Exam Results Vital Signs: Vital Signs Temperature 97.2 F L 09/04/18 09:00 Pulse Rate 90 09/04/18 09:00 Respiratory Rate 18 09/04/18 09:00 Blood Pressure 126/73 09/04/18 09:00 O2 Sat by Pulse Oximetry (%) Pertinent Admission Physical Exam Findings: WITHDRAWAL SYMPTOMS. Laboratory Tests 09/01/18 09/01/18 09/01/18 07:40 07:40 09:00 WBC 10.1 H RBC 4.26 Hgb 13.3 Hct 40.0 MCV 93.8 MCH 31.3 MCHC 33.4 RDW 13.2 Plt Count 411 D MPV 8.2 Sodium 140 Potassium 4.1 Chloride 104 Carbon Dioxide 32 Anion Gap 4 L BUN 9.2 Creatinine 1.2 Est GFR (CKD-EPI)AfAm 82.96 Est GFR (CKD-EPI)NonAf 71.58 Random Glucose 86 Calcium 8.5 Total Bilirubin 0.3 AST 13 L ALT 20 Alkaline Phosphatase 94 Total Protein 6.6 Albumin 3.2 L Urine Color Yellow Urine Appearance Turbid Urine pH 6.0 Ur Specific [place] 1.024 Urine Protein Negative Urine Glucose (UA) Negative Urine Ketones Negative Urine Blood Negative Urine Nitrite Negative Urine Bilirubin Negative Urine Urobilinogen 0.2 Ur Leukocyte Esterase Negative LABS NOTED. - Treatment Hospital Course: Detox Protocol Followed, Detoxed Safely, Responded well, Discharged Condition Good, Rehab Referral Accepted Patient has Accepted a Rehab Referral to: [facility] ([facility], [place]). - Medication Discharge Medications: Ambulatory Orders Gabapentin [Neurontin -] 300 mg PO BID #60 capsule 05/14/18 Olanzapine [Zyprexa] 20 HS 08/31/18 Amlodipine Besylate [Norvasc -] 5 mg PO DAILY 30 Days #30 tablet 09/04/18 - Diagnosis (1) Alcohol dependence with uncomplicated withdrawal Status: Acute (2) Opioid dependence with withdrawal Status: Acute (3) Asthma Status: Chronic Qualifiers: Asthma severity: mild Asthma persistence: intermittent Asthma complication type: uncomplicated Qualified Code(s): J45.20 - Mild intermittent asthma, uncomplicated (4) Cocaine dependence Status: Chronic Qualifiers: Substance use status: uncomplicated Qualified Code(s): F14.20 - Cocaine dependence, uncomplicated (5) HTN (hypertension) Status: Chronic Qualifiers: Hypertension type: unspecified Qualified Code(s): I10 - Essential (primary ) hypertension (6) History of bipolar disorder Status: Chronic (7) Insomnia Status: Chronic Qualifiers: Insomnia type: unspecified Qualified Code(s): G47.00 - Insomnia, unspecified (8) Nicotine dependence Status: Chronic Qualifiers: Nicotine product type: cigarettes Substance use status: uncomplicated Qualified Code(s): F17.210 - Nicotine dependence, cigarettes, uncomplicated (9) Non-compliance Status: Chronic (10) Substance induced mood disorder Status: Chronic - AMA Did Patient Leave Against Medical Advice: No
== END 2018-09-04 09:39 | disposition home or self-care (01) | DRG 773 ==
LOC: YASAS 11:57 → Y3N 17:49
PROVIDERS: ADMIT Surgery; ATTEND Surgery
PROC: HZ2ZZZZ Detoxification Services for Substance Abuse Treatment (ICD-10-PCS; principal; 2018-08-31)
DX: F11.23 Opioid dependence with withdrawal (principal); F10.230 Alcohol dependence with withdrawal, uncomplicated; F14.20 Cocaine dependence, uncomplicated; F17.210 Nicotine dependence, cigarettes, uncomplicated; F19.24 Other psychoactive substance dependence with psychoactive substance-induced mood disorder; F31.9 Bipolar disorder, unspecified; G47.00 Insomnia, unspecified; I10 Essential (primary) hypertension; J45.20 Mild intermittent asthma, uncomplicated; Z91.19 Patient's noncompliance with other medical treatment and regimen
CPT/HCPCS: 36415; 80053; 81003; 85027

== ENCOUNTER 2018-12-25 16:24 | Inpatient (IN) | payer OTHER ==
[2018-12-25 18:42] VITALS: BMI 26.4
--- NOTE | 2018-12-25 19:54 | HP ---
COWS - Scale Resting Pulse: 0= [place] 80 or Below Sweatin= Chills/Flushing Restless Observation: 5= Unable to Sit Still Pupil Size: 0= Normal to Room Light Bone or Joint Aches: 4=Acute Joint/Muscle Pain Runny Nose/ Eye Tearin= Runny Nose/Eyes GI Upset > 30mins: 2= Nausea/Diarrhea Tremor Observation: 4= Gross Tremor/Twitching Yawning Observation: 1= 1-2x During Session Anxiety or Irritability: 2=Irritable/Anxious Goose Flesh Skin: 0=Smooth Skin COWS Score: 21 CIWA Score Nausea/Vomitin-No Nausea/No Vomiting Muscle Tremors: 4-Moderate,w/Arms Extend Anxiety: 4-Mod. Anxious/Guarded Agitation: 4-Moderately Restless Paroxysmal Sweats: 3 Orientation: 0-Oriented Tacttile Disturbances: 2-Mild Itch/Numbness/Burn Auditory Disturbances: 0-None Visual Disturbances: 0-None Headache: 0-None Present CIWA-Ar Total Score: 17 - Admission Criteria OASAS Guidelines: Admission for Medically Managed Detox: Requires at least one of the followin. CIWA greater than 12 2. Seizures within the past 24 hours 3. Delirium tremens within the past 24 hours 4. Hallucinations within the past 24 hours 5. Acute intervention needed for co occurring medical disorder 6. Acute intervention needed for co occurring psychiatric disorder 7. Severe withdrawal that cannot be handled at a lower level of care (continued vomiting, continued diarrhea, abnormal vital signs) requiring intravenous medication and/or fluids 8. Admitting History and Physical - Smoking History Smoking history: Current every day smoker Have you smoked in the past 12 months: Yes Aproximately how many cigarettes per day: 20 - Alcohol/Substance Use Hx Alcohol Use: Yes Admission [facility] Chief Complaint: C/O WITHDRAWAL SX'S Allergies/Adverse Reactions: Allergies Allergy/AdvReac Type Severity Reaction Status Date / Time Pork/Porcine Containing Allergy Severe Hives Verified 12/25/18 18:31 Products No Known Drug Allergies Allergy Verified 12/25/18 18:31 NKDA Allergy Uncoded 12/25/18 18:31 History of Present Illness: HERE FOR DETOX FROM HEROIN AND ALCOHOL. HE IS SELF REFERRED. LAST ADMIT 08/2018. PRESENTS TO SEEKING STABILIZATION DUE TO WITHDRAWAL SX'S + COW/CIWA. REPORTS DAILY USE OF HEROIN AND ALCOHOL. + EYE FLATWORK FINISHER HAND, + BLACKOUTS,+ AVH WHEN INTOXICATED, DENIES IVDU, SEIZURES, DT'S, SI/HI. REPORTS LAST DRINK 1 DAY AGO. REPORTS LONGEST CLEAN TIME 6 MONTHS. DENIES ANY IN THE PAST 1 YEAR. LIVES WITH FAMILY, UNEMPLOYED, DENIES LEGALS Exam Limitations: No Limitations - Ebola screening Have you traveled outside of the country in the last 21 days: No (N) Have you had contact with anyone from an Ebola affected area: No Do you have a fever: No - Review of Systems Constitutional: Chills, Loss of Appetite, Malaise, Night Sweats, Changes in sleep EENT: reports: Nose Congestion, Dental Problems (MISSING TEETH) Respiratory: reports: No Symptoms reported Cardiac: reports: No Symptoms Reported GI: reports: Diarrhea, Poor Appetite, Poor Fluid Intake, Abdominal cramping : reports: No Symptoms Reported Musculoskeletal: reports: Back Pain Integumentary: reports: No Symptoms Reported Neuro: reports: Tremors, Other (BLACK OUTS) Endocrine: reports: No Symptoms Reported Hematology: reports: No Symptoms Reported Psychiatric: reports: Orientated x3, Agitated (IRRITABLE), Anxious, Depressed Other Systems: Reviewed and Negative Patient History - Patient Medical History Hx Anemia: No Hx Asthma: Yes Hx Chronic Obstructive Pulmonary Disease (COPD): No Hx Cancer: No Hx Cardiac Disorders: No Hx Congestive Heart Failure: No Hx Hypertension: Yes Hx Hypercholesterolemia: No Hx Pacemaker: No HX Cerebrovascular Accident: No Hx Seizures: No Hx Dementia: No Hx Diabetes: No Hx Gastrointestinal Disorders: No Hx Liver Disease: No Hx Genitourinary Disorders: No Hx Sexually Transmitted Disorders: No Hx Renal Disease (ESRD): No Hx Thyroid Disease: No Hx Human Immunodeficiency Virus (HIV): No Hx Hepatitis C: No Hx Depression: Yes Hx Suicide Attempt: No Hx Bipolar Disorder: Yes Hx Schizophrenia: No Other Medical History: DENIES - Patient Surgical History Past Surgical History: Yes Hx Neurologic Surgery: No Hx Cataract Extraction: No Hx Cardiac Surgery: No Hx Lung Surgery: No Hx Breast Surgery: No Hx Breast Biopsy: No Hx Abdominal Surgery: No Hx Appendectomy: No Hx Cholecystectomy: No Hx Genitourinary Surgery: No Hx Section: No Hx Orthopedic Surgery: No Other Surgical History: biopsy right kidney 2 years ago at [facility] was told to be ok Anesthesia Reaction: No - PPD History Previous Implant?: Yes Documented Results: Positive w/o proof Implanted On Prior [facility] Admission?: No Results: CXR 07/2018 NEG PPD to be Administered?: No - Smoking Cessation Smoking history: Current every day smoker Have you smoked in the past 12 months: Yes Aproximately how many cigarettes per day: 20 Hx Chewing Tobacco Use: No Initiated information on smoking cessation: Yes 'Breaking Loose' booklet given: 12/25/18 - Substance & Tx. History Hx Alcohol Use: Yes Hx Substance Use: Yes Substance Use Type: Alcohol, Cocaine, Heroin Hx Substance Use Treatment: Yes ([facility]) - Substances abused Heroin Other (specify): sniff Substance route: Inhalation Frequency: Daily Amount used: 14 bags Age of first use: 39 Date of last use: 12/24/18 Cocaine Substance route: Smoking Frequency: Daily Amount used: 1 gram Age of first use: 19 Date of last use: 12/24/28 Alcohol Substance route: Oral Frequency: Daily Amount used: 1 pint Age of first use: 19 Date of last use: 12/24/18 Admission Physical Exam [facility] - Vital Signs Vital Signs: Vital Signs - 24 hr 12/25/18 18:36 Temperature 96.3 F L Pulse Rate 73 Respiratory 16 Rate Blood Pressure 159/82 - Physical General Appearance: Yes: Moderate Distress, Tremorous, Irritable, Anxious HEENTM: Yes: EOMI, Normocephalic, Normal Voice, KAROL, Pharynx Normal, Other ( MISSING TEETH) Respiratory: Yes: Chest Non-Tender, No Respiratory Distress, No Accessory Muscle Use, Wheezing, Other (coarse bs) Neck: Yes: No masses,lesions,Nodules, Supple, Trachea in good position Breast: Yes: Breasts Symetrical, No Discharge Cardiology: Yes: Regular Rhythm, Regular Rate, S1, S2 Abdominal: Yes: Normal Bowel Sounds, Soft, Increased Bowel Sounds Genitourinary: Yes: Within Normal Limits Back: Yes: Normal Inspection, CVA Tenderness (R) Musculoskeletal: Yes: full range of Motion, Gait Steady Extremities: Yes: Normal Capillary Refill, Normal Range of Motion, Non-Tender, Tremors Neurological: Yes: Fully Oriented, Alert, Motor Strength 5/5, Depressed Affect Integumentary: Yes: Dry, Warm, Other (multiple areas of abrasion on back and legs from client scratching himself) Lymphatic: Yes: Within Normal Limits - Diagnostic (1) At risk for dehydration due to poor fluid intake Current Visit: Yes Status: Acute (2) Alcohol dependence with uncomplicated withdrawal Current Visit: No Status: Acute (3) Opioid dependence with withdrawal Current Visit: No Status: Acute (4) Asthma Current Visit: No Status: Chronic Qualifiers: Asthma severity: mild Asthma persistence: intermittent Asthma complication type: uncomplicated Qualified Code(s): J45.20 - Mild intermittent asthma, uncomplicated (5) Bipolar disorder Current Visit: No Status: Chronic (6) Cocaine dependence Current Visit: No Status: Chronic Qualifiers: Substance use status: uncomplicated Qualified Code(s): F14.20 - Cocaine dependence, uncomplicated (7) HTN (hypertension) Current Visit: No Status: Chronic Qualifiers: Hypertension type: unspecified Qualified Code(s): I10 - Essential (primary ) hypertension (8) Nicotine dependence Current Visit: No Status: Chronic Qualifiers: Nicotine product type: cigarettes Substance use status: uncomplicated Qualified Code(s): F17.210 - Nicotine dependence, cigarettes, uncomplicated (9) Substance induced mood disorder Current Visit: No Status: Chronic Cleared for Admission S - Detox or Rehab [facility] Level of Care: Medically Managed Detox Regimen/Protocol: Methadone/Librium Claeared for Rehab Admission: No Breathalyzer - Breathalyzer Breathalyzer: 0 Urine Drug Screen - Test Device Lot number: [id number] Expiration date: 08/17/20 - Control Is test valid?: Yes - Results Drug screen NEGATIVE: No Urine drug screen results: ALESSANDRA-Cocaine, MOP-Opiates, OXY-Oxycodone Inpatient Rehab Admission - Rehab Decision to Admit Inpatient rehab admission?: No
[2018-12-25] MEDS ORDERED: NALOXONE HCL 0.4 MG/ML VIAL IM PRN (19:59)
[2018-12-25] MEDS ORDERED: P-EPHED 60MG/TRIPROLIDI 2.5MG TABLET PO PRN (19:59)
[2018-12-25] MEDS ORDERED: ACETAMINOPHEN 325 MG TABLET (FP) PO PRN ×2 (19:59)
[2018-12-25] MEDS ORDERED: ONDANSETRON *ODT* 4 MG TABLET SL PRN (19:59)
[2018-12-25] MEDS ORDERED: MAGNESIUM HYDROX 2400MG/30ML ORAL SUSPENSION 30 ML CUP PO PRN (19:59)
[2018-12-25] MEDS ORDERED: MAG HYDROX/AL HYDROX/SIMETH 30 ML UNIT-DOSE CUP PO PRN (19:59)
[2018-12-25] MEDS ORDERED: MENTHOL/PHENOL 1 EACH UD MM PRN (19:59)
[2018-12-25] MEDS ORDERED: chlordiazePOXIDE HCL 25 MG CAPSULE PO PRN (19:59)
[2018-12-25] MEDS ORDERED: BISMUTH SUBSALICYLATE 524 MG/30 ML UD PO PRN (19:59)
[2018-12-25] MEDS ORDERED: DICYCLOMINE HCL 10 MG CAPSULE PO PRN (19:59)
[2018-12-25] MEDS ORDERED: guaiFENesin 200 MG/10 ML 10 ML UNIT-DOSE CUPS PO PRN (19:59)
[2018-12-25] MEDS ORDERED: cloNIDine HCL 0.1 MG TABLET PO PRN (19:59)
[2018-12-25] MEDS ORDERED: METHOCARBAMOL 500 MG TABLET PO PRN (19:59)
[2018-12-25] MEDS ORDERED: IBUPROFEN 400 MG TABLET (FP) PO PRN (19:59)
[2018-12-25] MEDS ORDERED: MAGNESIUM CITRATE 300 ML BOTTLE PO PRN (19:59)
[2018-12-25] MEDS ORDERED: hydrOXYzine PAMOATE 25 MG CAPSULE (FP) PO PRN (19:59)
[2018-12-25] MEDS ORDERED: NICOTINE POLACRILEX 2 MG GUM BUC PRN (19:59)
[2018-12-25] MEDS ORDERED: METHADONE HCL 10 MG TABLET (FOR DETOX USE ONLY) PO ONE (20:45)
[2018-12-25] MEDS: THIAMINE HCL 100 MG TABLET (FP) PO SCH (21:15)
[2018-12-25] MEDS ORDERED: MELATONIN 5 MG TABLETS PO PRN (22:00)
[2018-12-25] MEDS: chlordiazePOXIDE HCL 25 MG CAPSULE PO SCH (22:50)
[2018-12-26] MEDS: chlordiazePOXIDE HCL 25 MG CAPSULE PO SCH ×4 (06:21→22:28)
[2018-12-26] MEDS ORDERED: METHADONE (DETOX) 20 MG, METHADONE (DETOX) 5 MG PO ONE (10:00)
[2018-12-26] MEDS: amLODIPine BESYLATE 5 MG TABLET (FP) PO SCH (10:39)
[2018-12-26] MEDS: PRENATAL VITAMINS W/ FOLIC ACID TABLET (FP) PO SCH (10:39)
[2018-12-26] MEDS ORDERED: METHADONE HCL 5 MG TABLET (FOR DETOX USE ONLY) ONE (10:40)
[2018-12-26] MEDS ORDERED: METHADONE HCL 10 MG TABLET (FOR DETOX USE ONLY) ONE (10:40)
[2018-12-26] MEDS: NICOTINE 21 MG/24 HOURS TOPICAL PATCH TD SCH (10:43)
[2018-12-26 11:53] LABS: HEMATOCRIT 44.7 % (35.4-49); MCH 31.9 pg (25.7-33.7); MCHC 33.5 g/dl (32.0-35.9); MEAN CELL VOLUME 95.3 fl (80-96); MEAN PLT VOLUME 8.9 fl (7.5-11.1); PLATELET COUNT 228 K/MM3 (134-434); RBC 4.69 M/mm3 (4.00-5.60); RDW 13.5 % (11.9-15.9); WHITE BLOOD COUNT 7.3 K/mm3 (4.0-10.0)
[2018-12-26 12:15] LABS: ALBUMIN 3.6 g/dl (3.4-5.0); BILIRUBIN,TOTAL 0.4 mg/dL (0.2-1); BLOOD UREA NITROGEN 10.8 mg/dL (7-18); CALCIUM 8.7 mg/dL (8.5-10.1); CREATININE 1.1 mg/dL (0.55-1.3); POTASSIUM 3.8 mmol/L (3.5-5.1); TOT PROT 6.6 g/dl (6.4-8.2)
--- NOTE | 2018-12-26 13:10 | PN ---
[facility] CIWA - CIWA Score Nausea/Vomitin-Mild Nausea/No Vomiting Muscle Tremors: 2 Anxiety: 2 Agitation: 0-Normal Activity Paroxysmal Sweats: 1-Minimal Palms Moist Orientation: 0-Oriented Tacttile Disturbances: 1-Very Mild Itch/Numbness Auditory Disturbances: 0-None Visual Disturbances: 4-Moderate Hallucinations Headache: 1-Very Mild CIWA-Ar Total Score: 12 S COWS - Scale Resting Pulse: 0= [place] 80 or Below Sweatin= Chills/Flushing Restless Observation: 1= Difficult to Sit Still Pupil Size: 0= Normal to Room Light Bone or Joint Aches: 2= Severe Diffuse Aches Runny Nose/ Eye Tearin= None GI Upset > 30mins: 2= Nausea/Diarrhea Tremor Observation of Outstretched Hands: 1= Tremor Ada, Not Seen Yawning Observation: 1= 1-2x During Session Anxiety or Irritability: 1=Feels Anxious/Irritable Goose Flesh Skin: 0=Smooth Skin COWS Score: 9 S Progress Note (SOAP) Subjective: c/o body aches, chills, urinary hesitancy Objective: 12/26/18 13:10 Vital Signs Temperature 97.1 F L 12/26/18 09:12 Pulse Rate 54 L 12/26/18 09:12 Respiratory Rate 18 12/26/18 09:12 Blood Pressure 127/81 12/26/18 09:12 O2 Sat by Pulse Oximetry (%) Laboratory Last Values WBC 7.3 K/mm3 (4.0-10.0) 12/26/18 08:45 RBC 4.69 M/mm3 (4.00-5.60) 12/26/18 08:45 Hgb 15.0 GM/dL (11.7-16.9) 12/26/18 08:45 Hct 44.7 % (35.4-49) 12/26/18 08:45 MCV 95.3 fl (80-96) 12/26/18 08:45 MCH 31.9 pg (25.7-33.7) 12/26/18 08:45 MCHC 33.5 g/dl (32.0-35.9) 12/26/18 08:45 RDW 13.5 % (11.9-15.9) 12/26/18 08:45 Plt Count 228 K/MM3 (134-434) D 12/26/18 08:45 MPV 8.9 fl (7.5-11.1) 12/26/18 08:45 Sodium 140 mmol/L (136-145) 12/26/18 08:45 Potassium 3.8 mmol/L (3.5-5.1) 12/26/18 08:45 Chloride 105 mmol/L (98-107) 12/26/18 08:45 Carbon Dioxide 30 mmol/L (21-32) 12/26/18 08:45 Anion Gap 5 MMOL/L (8-16) L 12/26/18 08:45 BUN 10.8 mg/dL (7-18) 12/26/18 08:45 Creatinine 1.1 mg/dL (0.55-1.3) 12/26/18 08:45 Est GFR (CKD-EPI)AfAm 92.16 12/26/18 08:45 Est GFR (CKD-EPI)NonAf 79.52 12/26/18 08:45 Random Glucose 72 mg/dL (74-106) L 12/26/18 08:45 Calcium 8.7 mg/dL (8.5-10.1) 12/26/18 08:45 Total Bilirubin 0.4 mg/dL (0.2-1) 12/26/18 08:45 AST 17 U/L (15-37) 12/26/18 08:45 ALT 23 U/L (13-61) 12/26/18 08:45 Alkaline Phosphatase 109 U/L (45-117) 12/26/18 08:45 Total Protein 6.6 g/dl (6.4-8.2) 12/26/18 08:45 Albumin 3.6 g/dl (3.4-5.0) 12/26/18 08:45 Assessment: 12/26/18 13:11 Vital Signs Temperature 97.1 F L 12/26/18 09:12 Pulse Rate 54 L 12/26/18 09:12 Respiratory Rate 18 12/26/18 09:12 Blood Pressure 127/81 12/26/18 09:12 O2 Sat by Pulse Oximetry (%) Laboratory Last Values WBC 7.3 K/mm3 (4.0-10.0) 12/26/18 08:45 RBC 4.69 M/mm3 (4.00-5.60) 12/26/18 08:45 Hgb 15.0 GM/dL (11.7-16.9) 12/26/18 08:45 Hct 44.7 % (35.4-49) 12/26/18 08:45 MCV 95.3 fl (80-96) 12/26/18 08:45 MCH 31.9 pg (25.7-33.7) 12/26/18 08:45 MCHC 33.5 g/dl (32.0-35.9) 12/26/18 08:45 RDW 13.5 % (11.9-15.9) 12/26/18 08:45 Plt Count 228 K/MM3 (134-434) D 12/26/18 08:45 MPV 8.9 fl (7.5-11.1) 12/26/18 08:45 Sodium 140 mmol/L (136-145) 12/26/18 08:45 Potassium 3.8 mmol/L (3.5-5.1) 12/26/18 08:45 Chloride 105 mmol/L (98-107) 12/26/18 08:45 Carbon Dioxide 30 mmol/L (21-32) 12/26/18 08:45 Anion Gap 5 MMOL/L (8-16) L 12/26/18 08:45 BUN 10.8 mg/dL (7-18) 12/26/18 08:45 Creatinine 1.1 mg/dL (0.55-1.3) 12/26/18 08:45 Est GFR (CKD-EPI)AfAm 92.16 12/26/18 08:45 Est GFR (CKD-EPI)NonAf 79.52 12/26/18 08:45 Random Glucose 72 mg/dL (74-106) L 12/26/18 08:45 Calcium 8.7 mg/dL (8.5-10.1) 12/26/18 08:45 Total Bilirubin 0.4 mg/dL (0.2-1) 12/26/18 08:45 AST 17 U/L (15-37) 12/26/18 08:45 ALT 23 U/L (13-61) 12/26/18 08:45 Alkaline Phosphatase 109 U/L (45-117) 12/26/18 08:45 Total Protein 6.6 g/dl (6.4-8.2) 12/26/18 08:45 Albumin 3.6 g/dl (3.4-5.0) 12/26/18 08:45 Aox3 no acute distress no adventitious breath sounds + back pain full ROM no gait disturbance ambulating in the unit withdrawal sx continue detox increase PO fluids U/A and U/C pending continue to monitor
[2018-12-26 17:14] LABS: PH,URINE 7.5 (5.0-8.0); URINE APPEARANCE CLEAR; URINE BILIRUBIN NEGATIVE (NEGATIVE); URINE COLOR YELLOW; URINE GLUCOSE (UA) NEGATIVE (NEGATIVE); URINE KETONE NEGATIVE (NEGATIVE); URINE LEUK ESTERASE NEGATIVE (NEGATIVE); URINE NITRITE NEGATIVE (NEGATIVE); URINE PROTEIN NEGATIVE (NEGATIVE)
[2018-12-26] MEDS: THIAMINE HCL 100 MG TABLET (FP) PO SCH (22:28)
[2018-12-27] MEDS: chlordiazePOXIDE HCL 25 MG CAPSULE PO SCH ×4 (06:07→22:08)
[2018-12-27] MEDS ORDERED: METHADONE HCL 10 MG TABLET (FOR DETOX USE ONLY) PO ONE (10:00)
[2018-12-27] MEDS: PRENATAL VITAMINS W/ FOLIC ACID TABLET (FP) PO SCH (10:47)
[2018-12-27] MEDS: amLODIPine BESYLATE 5 MG TABLET (FP) PO SCH (10:47)
[2018-12-27] MEDS: NICOTINE 21 MG/24 HOURS TOPICAL PATCH TD SCH (10:49)
--- NOTE | 2018-12-27 16:59 | PN ---
S CIWA - CIWA Score Nausea/Vomitin-No Nausea/No Vomiting Muscle Tremors: 3 Anxiety: 3 Agitation: 0-Normal Activity Paroxysmal Sweats: 2 Orientation: 2-Disoriented Date<2 days Tacttile Disturbances: 1-Very Mild Itch/Numbness Auditory Disturbances: 0-None Visual Disturbances: 3-Moderate Sensitivity Headache: 0-None Present CIWA-Ar Total Score: 14 S COWS - Scale Resting Pulse: 0= [place] 80 or Below Sweatin= Chills/Flushing Restless Observation: 0= Sits Still Pupil Size: 0= Normal to Room Light Bone or Joint Aches: 2= Severe Diffuse Aches Runny Nose/ Eye Tearin= None GI Upset > 30mins: 0= None Tremor Observation of Outstretched Hands: 2= Slight Tremor Visible Yawning Observation: 1= 1-2x During Session Anxiety or Irritability: 2=Irritable/Anxious Goose Flesh Skin: 3=Piloerection COWS Score: 11 S Progress Note (SOAP) Subjective: Fatigue, Tremors, Anxious, Sweating. Objective: PATIENT A & O X 2 (UNCERTAIN ABOUT CURRENT DAY / DATE). IN NO ACUTE DISTRESS. 12/27/18 16:58 Vital Signs Temperature 97.6 F 12/27/18 14:14 Pulse Rate 71 12/27/18 14:14 Respiratory Rate 20 12/27/18 14:14 Blood Pressure 136/82 12/27/18 14:14 O2 Sat by Pulse Oximetry (%) Laboratory Tests 12/26/18 12/26/18 12/26/18 08:45 08:45 08:45 WBC 7.3 RBC 4.69 Hgb 15.0 Hct 44.7 MCV 95.3 MCH 31.9 MCHC 33.5 RDW 13.5 Plt Count 228 D MPV 8.9 Sodium 140 Potassium 3.8 Chloride 105 Carbon Dioxide 30 Anion Gap 5 L BUN 10.8 Creatinine 1.1 Est GFR (CKD-EPI)AfAm 92.16 Est GFR (CKD-EPI)NonAf 79.52 Random Glucose 72 L Calcium 8.7 Total Bilirubin 0.4 AST 17 ALT 23 Alkaline Phosphatase 109 Total Protein 6.6 Albumin 3.6 Urine Color Urine Appearance Urine pH Ur Specific [place] Urine Protein Urine Glucose (UA) Urine Ketones Urine Blood Urine Nitrite Urine Bilirubin Urine Urobilinogen Ur Leukocyte Esterase RPR Titer Nonreactive 12/26/18 14:41 WBC RBC Hgb Hct MCV MCH MCHC RDW Plt Count MPV Sodium Potassium Chloride Carbon Dioxide Anion Gap BUN Creatinine Est GFR (CKD-EPI)AfAm Est GFR (CKD-EPI)NonAf Random Glucose Calcium Total Bilirubin AST ALT Alkaline Phosphatase Total Protein Albumin Urine Color Yellow Urine Appearance Clear Urine pH 7.5 D Ur Specific [place] 1.013 Urine Protein Negative Urine Glucose (UA) Negative Urine Ketones Negative Urine Blood Negative Urine Nitrite Negative Urine Bilirubin Negative Urine Urobilinogen 1.0 Ur Leukocyte Esterase Negative RPR Titer LABS NOTED. RESULTS OF UA NOTED. RESULTS OF URINE C + S PENDING. 12/27/18 16:59 Assessment: 12/27/18 16:59 WITHDRAWAL SYMPTOMS. Plan: CONTINUE DETOX. INCREASE DAILY PO WATER INTAKE.
[2018-12-27] MEDS: THIAMINE HCL 100 MG TABLET (FP) PO SCH (22:08)
[2018-12-28] MEDS ORDERED: chlordiazePOXIDE HCL 10 MG CAPSULE PO PRN
[2018-12-28] MEDS: chlordiazePOXIDE HCL 10 MG CAPSULE PO SCH ×4 (06:08→22:24)
[2018-12-28] MEDS ORDERED: METHADONE HCL 10 MG TABLET (FOR DETOX USE ONLY) ONE (09:16)
[2018-12-28] MEDS ORDERED: METHADONE HCL 5 MG TABLET (FOR DETOX USE ONLY) ONE (09:16)
[2018-12-28] MEDS ORDERED: METHADONE (DETOX) 10 MG, METHADONE (DETOX) 5 MG PO ONE (10:00)
[2018-12-28] MEDS: amLODIPine BESYLATE 5 MG TABLET (FP) PO SCH (10:05)
[2018-12-28] MEDS: PRENATAL VITAMINS W/ FOLIC ACID TABLET (FP) PO SCH (10:05)
[2018-12-28] MEDS: NICOTINE 21 MG/24 HOURS TOPICAL PATCH TD SCH (10:05)
--- NOTE | 2018-12-28 14:12 | CONSULT ---
[facility] Psychiatric Consult - Data Date of interview: 12/28/18 Admission source: [facility] Identifying data: Readmission to [facility] for this 48 y/o AA male self- referred for detoxification (IRON issues : heroin, alcohol, cocaine, nicotine). Interviewed at [address] [place] [address]. Patient is single, a father of two, domiciled (lives with a nephew in [place]), unemployed and supported on SSI benefits. Substance Abuse History: Discussed with the patient in this interview. Details in current [facility] report as follows : Smoking history: Current every day smoker. Have you smoked in the past 12 months: Yes. Aproximately how many cigarettes per day: 20. Hx Chewing Tobacco Use: No. Initiated information on smoking cessation: Yes. 'Breaking Loose' booklet given: 12/25/18. - Substance & Tx. History. Hx Alcohol Use: Yes. Hx Substance Use: Yes. Substance Use Type: Alcohol, Cocaine, Heroin. Hx Substance Use Treatment: Yes ([facility]). - Substances abused. Heroin. Other (specify): sniff. Substance route: Inhalation. Frequency: Daily. Amount used: 14 bags. Age of first use: 39. Date of last use: 12/24/18. Cocaine. Substance route: Smoking. Frequency: Daily. Amount used: 1 gram. Age of first use: 19. Date of last use: . Alcohol. Substance route: Oral. Frequency: Daily. Amount used: 1 pint. Age of first use: 19. Date of last use: 12/24/18 Medical History: Medical profile is remarkable for bronchial asthma, hypertension and a history of positive PPD (reportedly treated with INH + B6 in the ). Psychiatric History: Patient reports a history of multiple psychiatric hospitalizations ([facility], [facility], [facility], [facility] in [facility]). He is also known to [facility]. Mr Rothman indicates that he has been prescribed a regimen of olanzapine 10 mg/day + gabapentin 300 mg/tid. Referred, in the past, to [facility] for psychiatric OPD care. Patient is chronically non-adherent to medications + OPD care (has reportedly NOT taken olanzapine for more than three weeks). Diagnosed with bipolar disorder. Has not seen a psychiatrist " for some time." Patient endorses a history of multiple suicide attempts via overdoses with drugs and/or medications.Patient reports being diagnosed with Bipolar Disorder and has had multiple psychiatric hospitalizations. Physical/Sexual Abuse/Trauma History: Patient denies history of abuse. Additional Comment: Urine drug screen results: ALESSANDRA-Cocaine, MOP-Opiates, OXY- Oxycodone. Noted. Mental Status Exam - Mental Status Exam Alert and Oriented to: Time, Place, Person Cognitive Function: Good Patient Appearance: Unkempt (tall stature) Mood: Withdrawn Affect: Appropriate, Normal Range Patient Behavior: Fatigued, Cooperative Speech Pattern: Clear, Appropriate Voice Loudness: Normal Thought Process: Goal Oriented Thought Disorder: Not Present Hallucinations: Denies Suicidal Ideation: Denies Homicidal Ideation: Denies Insight/Judgement: Poor Sleep: Well Appetite: Good Muscle strength/Tone: Normal Gait/Station: Normal Psychiatric Findings - Problem List ([place] 1, 2,3) (1) Alcohol dependence with uncomplicated withdrawal Current Visit: Yes Status: Acute (2) Opioid dependence with withdrawal Current Visit: Yes Status: Acute (3) Cocaine dependence Current Visit: Yes Status: Chronic Qualifiers: Substance use status: uncomplicated Qualified Code(s): F14.20 - Cocaine dependence, uncomplicated (4) Nicotine dependence Current Visit: Yes Status: Chronic Qualifiers: Nicotine product type: cigarettes Substance use status: uncomplicated Qualified Code(s): F17.210 - Nicotine dependence, cigarettes, uncomplicated (5) History of bipolar disorder Current Visit: Yes Status: Chronic (6) Substance induced mood disorder Current Visit: Yes Status: Chronic (7) Non-compliance Current Visit: Yes Status: Chronic - Initial Treatment Plan Initial Treatment Plan: Records ([facility]) revisited. Sleep hygiene. Detoxification in progress. Resumed : olanzapine 10 mg po hs. Side effects/benefits discussed with the patient. Mr Rothman is in agreement with this plan of care. Gave verbal consent to MD. Aguilar.
--- NOTE | 2018-12-28 16:50 | PN ---
S CIWA - CIWA Score Nausea/Vomitin-No Nausea/No Vomiting Muscle Tremors: 3 (and Chills.) Anxiety: 3 Agitation: 3 Paroxysmal Sweats: 1-Minimal Palms Moist Orientation: 0-Oriented Tacttile Disturbances: 0-None Auditory Disturbances: 0-None Visual Disturbances: 2-Mild Sensitivity Headache: 0-None Present CIWA-Ar Total Score: 12 S COWS - Scale Resting Pulse: 0= [place] 80 or Below Sweatin= Chills/Flushing Restless Observation: 1= Difficult to Sit Still Pupil Size: 0= Normal to Room Light Bone or Joint Aches: 1= Mild Discomfort Runny Nose/ Eye Tearin= None GI Upset > 30mins: 0= None Tremor Observation of Outstretched Hands: 2= Slight Tremor Visible Yawning Observation: 1= 1-2x During Session Anxiety or Irritability: 2=Irritable/Anxious Goose Flesh Skin: 0=Smooth Skin COWS Score: 8 S Progress Note (SOAP) Subjective: Tremors, Chills, Anxious, Poor Appetite. Objective: PATIENT A & O X 3, OBSERVED AMBULATING ON DETOX UNIT UNASSISTED. IN NO ACUTE DISTRESS. 12/28/18 16:49 Vital Signs Temperature 97.7 F 12/28/18 13:35 Pulse Rate 80 12/28/18 13:35 Respiratory Rate 18 12/28/18 13:35 Blood Pressure 138/83 12/28/18 13:35 O2 Sat by Pulse Oximetry (%) Laboratory Tests 12/26/18 12/26/18 12/26/18 08:45 08:45 08:45 WBC 7.3 RBC 4.69 Hgb 15.0 Hct 44.7 MCV 95.3 MCH 31.9 MCHC 33.5 RDW 13.5 Plt Count 228 D MPV 8.9 Sodium 140 Potassium 3.8 Chloride 105 Carbon Dioxide 30 Anion Gap 5 L BUN 10.8 Creatinine 1.1 Est GFR (CKD-EPI)AfAm 92.16 Est GFR (CKD-EPI)NonAf 79.52 Random Glucose 72 L Calcium 8.7 Total Bilirubin 0.4 AST 17 ALT 23 Alkaline Phosphatase 109 Total Protein 6.6 Albumin 3.6 Urine Color Urine Appearance Urine pH Ur Specific [place] Urine Protein Urine Glucose (UA) Urine Ketones Urine Blood Urine Nitrite Urine Bilirubin Urine Urobilinogen Ur Leukocyte Esterase RPR Titer Nonreactive 12/26/18 14:41 WBC RBC Hgb Hct MCV MCH MCHC RDW Plt Count MPV Sodium Potassium Chloride Carbon Dioxide Anion Gap BUN Creatinine Est GFR (CKD-EPI)AfAm Est GFR (CKD-EPI)NonAf Random Glucose Calcium Total Bilirubin AST ALT Alkaline Phosphatase Total Protein Albumin Urine Color Yellow Urine Appearance Clear Urine pH 7.5 D Ur Specific [place] 1.013 Urine Protein Negative Urine Glucose (UA) Negative Urine Ketones Negative Urine Blood Negative Urine Nitrite Negative Urine Bilirubin Negative Urine Urobilinogen 1.0 Ur Leukocyte Esterase Negative RPR Titer LABS NOTED. Assessment: 12/28/18 16:49 WITHDRAWAL SYMPTOMS. Plan: CONTINUE DETOX. ENSURE PO FOR CALORIC SUPPLEMENTATION.
[2018-12-28] MEDS: THIAMINE HCL 100 MG TABLET (FP) PO SCH (22:23)
[2018-12-28] MEDS: OLANZapine 10 MG TABLET PO SCH (22:23)
[2018-12-29] MEDS: chlordiazePOXIDE HCL 10 MG CAPSULE PO SCH ×2 (06:47→17:58)
[2018-12-29] MEDS ORDERED: METHADONE HCL 10 MG TABLET (FOR DETOX USE ONLY) PO ONE (10:00)
[2018-12-29] MEDS: NICOTINE 21 MG/24 HOURS TOPICAL PATCH TD SCH (10:36)
[2018-12-29] MEDS: PRENATAL VITAMINS W/ FOLIC ACID TABLET (FP) PO SCH (10:36)
[2018-12-29] MEDS: amLODIPine BESYLATE 5 MG TABLET (FP) PO SCH (10:36)
--- NOTE | 2018-12-29 11:44 | PN ---
[facility] CIWA - CIWA Score Nausea/Vomitin-No Nausea/No Vomiting Muscle Tremors: None Anxiety: 2 Agitation: 0-Normal Activity Paroxysmal Sweats: 2 Orientation: 0-Oriented Tacttile Disturbances: 0-None Auditory Disturbances: 0-None Visual Disturbances: 0-None Headache: 0-None Present CIWA-Ar Total Score: 4 S COWS - Scale Resting Pulse: 1= [place] 81-100 Sweatin= Chills/Flushing Restless Observation: 1= Difficult to Sit Still Pupil Size: 0= Normal to Room Light Bone or Joint Aches: 0= None Runny Nose/ Eye Tearin= None GI Upset > 30mins: 0= None Tremor Observation of Outstretched Hands: 0= None Yawning Observation: 0= None Anxiety or Irritability: 1=Feels Anxious/Irritable Goose Flesh Skin: 0=Smooth Skin COWS Score: 4 [facility] Progress Note (SOAP) Subjective: c/o sweats, and anxiety. Objective: 12/29/18 11:43 Vital Signs 12/29/18 12/29/18 06:43 09:35 Temperature 98 F 97.4 F L Pulse Rate 86 78 Respiratory 20 18 Rate Blood Pressure 130/81 132/62 Lab Results WBC 7.3 K/mm3 (4.0-10.0) 12/26/18 08:45 RBC 4.69 M/mm3 (4.00-5.60) 12/26/18 08:45 Hgb 15.0 GM/dL (11.7-16.9) 12/26/18 08:45 Hct 44.7 % (35.4-49) 12/26/18 08:45 MCV 95.3 fl (80-96) 12/26/18 08:45 MCHC 33.5 g/dl (32.0-35.9) 12/26/18 08:45 RDW 13.5 % (11.9-15.9) 12/26/18 08:45 Plt Count 228 K/MM3 (134-434) D 12/26/18 08:45 Sodium 140 mmol/L (136-145) 12/26/18 08:45 Potassium 3.8 mmol/L (3.5-5.1) 12/26/18 08:45 Chloride 105 mmol/L (98-107) 12/26/18 08:45 Carbon Dioxide 30 mmol/L (21-32) 12/26/18 08:45 Anion Gap 5 MMOL/L (8-16) L 12/26/18 08:45 BUN 10.8 mg/dL (7-18) 12/26/18 08:45 Creatinine 1.1 mg/dL (0.55-1.3) 12/26/18 08:45 Random Glucose 72 mg/dL (74-106) L 12/26/18 08:45 Calcium 8.7 mg/dL (8.5-10.1) 12/26/18 08:45 Labs noted. Assessment: 12/29/18 11:43 AOX3, in no acute respiratory distress. Full ROM, ambulating in the unit. Mild Withdrawal symptoms. For d/c tomorrow. 12/29/18 11:43 Plan: continue detox. D/C in AM.
[2018-12-29] MEDS: OLANZapine 10 MG TABLET PO SCH (21:51)
[2018-12-29] MEDS: THIAMINE HCL 100 MG TABLET (FP) PO SCH (21:51)
[2018-12-30] MEDS ORDERED: chlordiazePOXIDE HCL 10 MG CAPSULE PO ONE (05:00)
[2018-12-30] MEDS ORDERED: METHADONE HCL 5 MG TABLET (FOR DETOX USE ONLY) PO ONE (06:00)
[2018-12-30 06:24] VITALS: BP 130/79; PULSE 71; TEMP 96.7
--- NOTE | 2018-12-30 13:01 | DS ---
[facility] Detox Discharge Summary Admission Date: 12/25/18 Discharge Date: 12/30/18 - History Present History: Alcohol Dependence, Cocaine Dependence, Opioid Dependence Additional Comments: Pt is medically cleared and discharge today. Pt completed his detox protocol. Pt is encouraged to follow-up with CD outpatient program and also to follow-up with his pmd. Pt verbalized understanding of the information given. Pt is alert and oriented x3 and in no respiratory distress. Pertinent Past History: H/O HTN, asthma, heroin, alcohol, and cocaine use disorder. - Physical Exam Results Vital Signs: Vital Signs Temperature 96.7 F L 12/30/18 06:24 Pulse Rate 71 12/30/18 06:24 Respiratory Rate 20 12/30/18 06:24 Blood Pressure 130/79 12/30/18 06:24 O2 Sat by Pulse Oximetry (%) Vital Signs 12/30/18 06:24 Temperature 96.7 F L Pulse Rate 71 Respiratory 20 Rate Blood Pressure 130/79 Lab Results WBC 7.3 K/mm3 (4.0-10.0) 12/26/18 08:45 RBC 4.69 M/mm3 (4.00-5.60) 12/26/18 08:45 Hgb 15.0 GM/dL (11.7-16.9) 12/26/18 08:45 Hct 44.7 % (35.4-49) 12/26/18 08:45 MCV 95.3 fl (80-96) 12/26/18 08:45 MCHC 33.5 g/dl (32.0-35.9) 12/26/18 08:45 RDW 13.5 % (11.9-15.9) 12/26/18 08:45 Plt Count 228 K/MM3 (134-434) D 12/26/18 08:45 Sodium 140 mmol/L (136-145) 12/26/18 08:45 Potassium 3.8 mmol/L (3.5-5.1) 12/26/18 08:45 Chloride 105 mmol/L (98-107) 12/26/18 08:45 Carbon Dioxide 30 mmol/L (21-32) 12/26/18 08:45 Anion Gap 5 MMOL/L (8-16) L 12/26/18 08:45 BUN 10.8 mg/dL (7-18) 12/26/18 08:45 Creatinine 1.1 mg/dL (0.55-1.3) 12/26/18 08:45 Random Glucose 72 mg/dL (74-106) L 12/26/18 08:45 Calcium 8.7 mg/dL (8.5-10.1) 12/26/18 08:45 Labs noted. Pertinent Admission Physical Exam Findings: withdrawal symptoms. - Treatment Hospital Course: Detox Protocol Followed, Detoxed Safely, Responded well, Discharged Condition Good - Medication Discharge Medications: Ambulatory Orders Gabapentin [Neurontin -] 300 mg PO BID #60 capsule 05/14/18 Olanzapine [Zyprexa] 20 mg PO HS 08/31/18 Amlodipine Besylate [Norvasc -] 5 mg PO DAILY 30 Days #30 tablet 09/04/18 - Diagnosis (1) Acute bronchitis Status: Acute (2) Alcohol dependence with uncomplicated withdrawal Status: Acute (3) Cannabis dependence Status: Acute (4) Genital herpes Status: Acute (5) Opioid dependence Status: Acute (6) Asthma Status: Chronic Qualifiers: Asthma severity: mild Asthma persistence: intermittent Asthma complication type: uncomplicated Qualified Code(s): J45.20 - Mild intermittent asthma, uncomplicated (7) Cocaine dependence Status: Chronic Qualifiers: Substance use status: uncomplicated Qualified Code(s): F14.20 - Cocaine dependence, uncomplicated (8) HTN (hypertension) Status: Chronic Qualifiers: Hypertension type: unspecified Qualified Code(s): I10 - Essential (primary ) hypertension (9) Heroin abuse Status: Chronic (10) Nicotine dependence Status: Chronic Qualifiers: Nicotine product type: cigarettes Substance use status: uncomplicated Qualified Code(s): F17.210 - Nicotine dependence, cigarettes, uncomplicated - AMA Did Patient Leave Against Medical Advice: No
== END 2018-12-30 11:17 | disposition home or self-care (01) | DRG 773 ==
LOC: YASAS 16:24 → Y3N 20:31
PROVIDERS: ADMIT Allergy & Immunology; ATTEND Allergy & Immunology
PROC: HZ2ZZZZ Detoxification Services for Substance Abuse Treatment (ICD-10-PCS; principal; 2018-12-25)
DX: F10.230 Alcohol dependence with withdrawal, uncomplicated (principal); F11.23 Opioid dependence with withdrawal; F14.20 Cocaine dependence, uncomplicated; F12.20 Cannabis dependence, uncomplicated; F17.210 Nicotine dependence, cigarettes, uncomplicated; F19.24 Other psychoactive substance dependence with psychoactive substance-induced mood disorder; F31.9 Bipolar disorder, unspecified; I10 Essential (primary) hypertension; J45.20 Mild intermittent asthma, uncomplicated; J20.9 Acute bronchitis, unspecified; M54.9 Dorsalgia, unspecified; A60.00 Herpesviral infection of urogenital system, unspecified; Z91.018 Allergy to other foods; Z91.19 Patient's noncompliance with other medical treatment and regimen
CPT/HCPCS: 36415; 80053; 81003; 85027; 86593; 87086

== ENCOUNTER 2019-01-26 11:30 | Inpatient (IN) | payer OTHER ==
[2019-01-26 14:16] VITALS: BMI 24.3
--- NOTE | 2019-01-26 15:14 | HP ---
COWS - Scale Resting Pulse: 1= [place] 81-100 Sweatin= Chills/Flushing Restless Observation: 1= Difficult to Sit Still Pupil Size: 1= Pupils >than Normal Bone or Joint Aches: 2= Severe Diffuse Aches Runny Nose/ Eye Tearin= Nasal Congestion GI Upset > 30mins: 2= Nausea/Diarrhea Tremor Observation: 2= Slight Tremor Visible Yawning Observation: 1= 1-2x During Session Anxiety or Irritability: 2=Irritable/Anxious Goose Flesh Skin: 0=Smooth Skin COWS Score: 14 CIWA Score Nausea/Vomitin Muscle Tremors: 3 Anxiety: 3 Agitation: 3 Paroxysmal Sweats: 1-Minimal Palms Moist Orientation: 0-Oriented Tacttile Disturbances: 1-Very Mild Itch/Numbness Auditory Disturbances: 0-None Visual Disturbances: 0-None Headache: 2-Mild CIWA-Ar Total Score: 15 - Admission Criteria OASAS Guidelines: Admission for Medically Managed Detox: Requires at least one of the followin. CIWA greater than 12 2. Seizures within the past 24 hours 3. Delirium tremens within the past 24 hours 4. Hallucinations within the past 24 hours 5. Acute intervention needed for co occurring medical disorder 6. Acute intervention needed for co occurring psychiatric disorder 7. Severe withdrawal that cannot be handled at a lower level of care (continued vomiting, continued diarrhea, abnormal vital signs) requiring intravenous medication and/or fluids 8. Admitting History and Physical - Smoking History Smoking history: Current every day smoker Have you smoked in the past 12 months: Yes Aproximately how many cigarettes per day: 20 - Alcohol/Substance Use Hx Alcohol Use: Yes Admission ROS [facility] Chief Complaint: i need help to stop using heroin,alcohol,cocaine and marijuana Allergies/Adverse Reactions: Allergies Allergy/AdvReac Type Severity Reaction Status Date / Time Pork/Porcine Containing Allergy Severe Hives Verified 01/26/19 14:11 Products No Known Drug Allergies Allergy Verified 12/25/18 18:31 NKDA Allergy Uncoded 12/25/18 18:31 History of Present Illness: this 48 years old male with heroin,alcohol,cocaine,marijuana dependence seeking detox,withdrawal ,multiple admissions, but keep relapsing, hypertension non compliance nicotine dependence 1 pack/day bipolar disorder no seizure syncope positive ppd coughing for few days longest period of sobriety 3 years plan for rehab after detox Exam Limitations: No Limitations - Ebola screening Have you traveled outside of the country in the last 21 days: No (N) Have you had contact with anyone from an Ebola affected area: No Have you been sick,other than usual withdrawal symptoms: No Do you have a fever: No - Review of Systems Constitutional: Loss of Appetite, Malaise, Night Sweats, Changes in sleep, Unintentional Wgt. Loss, Other EENT: reports: Tearing, Nose Congestion Respiratory: reports: Cough Cardiac: reports: No Symptoms Reported GI: reports: Abdominal cramping : reports: No Symptoms Reported Musculoskeletal: reports: Back Pain, Joint Pain, Muscle Pain Integumentary: reports: Dryness Neuro: reports: Headache, Tremors Endocrine: reports: No Symptoms Reported Hematology: reports: No Symptoms Reported Psychiatric: reports: No Sypmtoms Reported, Judgement Intact, Mood/Affect Appropiate, Orientated x3 Other Systems: Reviewed and Negative Patient History - Patient Medical History Hx Anemia: No Hx Asthma: Yes Hx Chronic Obstructive Pulmonary Disease (COPD): No Hx Cancer: No Hx Cardiac Disorders: No Hx Congestive Heart Failure: No Hx Hypertension: Yes (on norvasc 10 mgs po daily) Hx Hypercholesterolemia: No Hx Pacemaker: No HX Cerebrovascular Accident: No Hx Seizures: No Hx Dementia: No Hx Diabetes: No Hx Gastrointestinal Disorders: No Hx Liver Disease: No Hx Genitourinary Disorders: No Hx Sexually Transmitted Disorders: No Hx Renal Disease (ESRD): No Hx Thyroid Disease: No Hx Human Immunodeficiency Virus (HIV): No ([facility] 12/06) Hx Hepatitis C: No Hx Depression: Yes Hx Suicide Attempt: No Hx Bipolar Disorder: Yes Hx Schizophrenia: No Other Medical History: no suicidal,no homicidal - Patient Surgical History Past Surgical History: Yes Hx Neurologic Surgery: No Hx Cataract Extraction: No Hx Cardiac Surgery: No Hx Lung Surgery: No Hx Breast Surgery: No Hx Breast Biopsy: No Hx Abdominal Surgery: No Hx Appendectomy: No Hx Cholecystectomy: No Hx Genitourinary Surgery: No Hx Section: No Hx Orthopedic Surgery: No Other Surgical History: biopsy right kidney 2 years ago at [facility] was told to be ok Anesthesia Reaction: No - PPD History Previous Implant?: Yes Results: CXR 07/2018 NEG PPD to be Administered?: No - Smoking Cessation Smoking history: Current every day smoker Have you smoked in the past 12 months: Yes Aproximately how many cigarettes per day: 20 Hx Chewing Tobacco Use: No Initiated information on smoking cessation: Yes 'Breaking Loose' booklet given: 01/26/19 - Substance & Tx. History Hx Alcohol Use: Yes Hx Substance Use: Yes Substance Use Type: Alcohol, Cocaine, Heroin, Marijuana - Substances abused Heroin Other (specify): sniff Substance route: Inhalation Frequency: Daily Amount used: 15 bags Age of first use: 39 Date of last use: 01/25/19 Cocaine Substance route: Smoking Frequency: Daily Amount used: 1 gram Age of first use: 19 Date of last use: 01/25/19 Alcohol Substance route: Oral Frequency: Daily Amount used: 1/2-1 pint of vodka Age of first use: 19 Date of last use: 01/25/19 Marijuana/Hashish Substance route: Smoking Frequency: Daily Amount used: 20$ Age of first use: 16 Date of last use: 01/26/19 Admission Physical Exam [facility] - Vital Signs Vital Signs: Vital Signs - 24 hr 01/26/19 01/26/19 14:13 14:55 Temperature 98.2 F 98.2 F Pulse Rate 85 85 Respiratory 16 16 Rate Blood Pressure 156/90 156/90 - Physical General Appearance: Yes: Moderate Distress, Tremorous, Irritable, Sweating, Anxious HEENTM: Yes: Normal ENT Inspection, KAROL, Pharynx Normal Respiratory: Yes: Lungs Clear, Normal Breath Sounds, No Respiratory Distress Neck: Yes: Within Normal Limits, Supple, Trachea in good position Breast: Yes: Within Normal Limits Cardiology: Yes: Within Normal Limits, Regular Rhythm, Regular Rate, S1, S2 Abdominal: Yes: Within Normal Limits, Soft, Tenderness Genitourinary: Yes: Within Normal Limits Back: Yes: Muscle Spasm Musculoskeletal: Yes: Back pain, Muscle Pain Extremities: Yes: Tremors Neurological: Yes: Within Normal Limits, Alert, Motor Strength 5/5 Integumentary: Yes: Dry Lymphatic: Yes: Within Normal Limits - Diagnostic (1) Opioid dependence with withdrawal Current Visit: No Status: Acute (2) Weight loss Current Visit: No Status: Acute (3) Asthma Current Visit: No Status: Chronic Qualifiers: Asthma severity: mild Asthma persistence: intermittent Asthma complication type: uncomplicated Qualified Code(s): J45.20 - Mild intermittent asthma, uncomplicated (4) Bipolar disorder Current Visit: No Status: Chronic (5) HTN (hypertension) Current Visit: No Status: Chronic Qualifiers: Hypertension type: unspecified Qualified Code(s): I10 - Essential (primary ) hypertension (6) History of bipolar disorder Current Visit: No Status: Chronic Cleared for Admission [facility] - Detox or Rehab [facility] Level of Care: Medically Managed Detox Regimen/Protocol: Methadone/Librium Breathalyzer - Breathalyzer Breathalyzer: 0 Urine Drug Screen - Test Device Lot number: [id number] Expiration date: 10/17/20 - Control Is test valid?: Yes - Results Drug screen NEGATIVE: No Urine drug screen results: THC-Marijuana, ALESSANDRA-Cocaine, MOP-Opiates, BZO- Benzodiazepines Inpatient Rehab Admission - Rehab Decision to Admit Inpatient rehab admission?: No
[2019-01-26] MEDS ORDERED: MAGNESIUM HYDROX 2400MG/30ML ORAL SUSPENSION 30 ML CUP PO PRN (15:26)
[2019-01-26] MEDS ORDERED: chlordiazePOXIDE HCL 25 MG CAPSULE PO PRN (15:26)
[2019-01-26] MEDS ORDERED: hydrOXYzine PAMOATE 25 MG CAPSULE (FP) PO PRN (15:26)
[2019-01-26] MEDS ORDERED: MENTHOL/PHENOL 1 EACH UD MM PRN (15:26)
[2019-01-26] MEDS ORDERED: MELATONIN 5 MG TABLETS PO PRN (15:26)
[2019-01-26] MEDS ORDERED: IBUPROFEN 400 MG TABLET (FP) PO PRN (15:26)
[2019-01-26] MEDS ORDERED: METHOCARBAMOL 500 MG TABLET PO PRN (15:26)
[2019-01-26] MEDS ORDERED: ACETAMINOPHEN 325 MG TABLET (FP) PO PRN ×2 (15:26)
[2019-01-26] MEDS ORDERED: BISMUTH SUBSALICYLATE 524 MG/30 ML UD PO PRN (15:26)
[2019-01-26] MEDS ORDERED: MAG HYDROX/AL HYDROX/SIMETH 30 ML UNIT-DOSE CUP PO PRN (15:26)
[2019-01-26] MEDS ORDERED: METHADONE HCL 10 MG TABLET (FOR DETOX USE ONLY) PO ONE (15:26)
[2019-01-26] MEDS ORDERED: MAGNESIUM CITRATE 300 ML BOTTLE PO PRN (15:26)
[2019-01-26] MEDS ORDERED: cloNIDine HCL 0.1 MG TABLET PO PRN (15:26)
[2019-01-26] MEDS: chlordiazePOXIDE HCL 25 MG CAPSULE PO SCH ×2 (17:16→22:49)
[2019-01-26] MEDS: THIAMINE HCL 100 MG TABLET (FP) PO SCH (22:49)
[2019-01-27] MEDS: chlordiazePOXIDE HCL 25 MG CAPSULE PO SCH ×4 (05:37→22:51)
[2019-01-27] MEDS ORDERED: METHADONE (DETOX) 20 MG, METHADONE (DETOX) 5 MG PO ONE (10:00)
[2019-01-27 10:21] LABS: HEMATOCRIT 45.3 % (35.4-49); HEMOGLOBIN 15.3 GM/dL (11.7-16.9); MCH 32.1 pg (25.7-33.7); MCHC 33.7 g/dl (32.0-35.9); MEAN CELL VOLUME 95.3 fl (80-96); MEAN PLT VOLUME 8.4 fl (7.5-11.1); PLATELET COUNT 224 K/MM3 (134-434); RBC 4.75 M/mm3 (4.00-5.60); RDW 13.6 % (11.9-15.9); WHITE BLOOD COUNT 8.2 K/mm3 (4.0-10.0)
[2019-01-27 10:26] LABS: ALBUMIN 3.3 g/dl (3.4-5.0); BILIRUBIN,TOTAL 0.9 mg/dL (0.2-1); BLOOD UREA NITROGEN 7.8 mg/dL (7-18); CALCIUM 8.8 mg/dL (8.5-10.1); POTASSIUM 3.7 mmol/L (3.5-5.1); TOT PROT 6.3 g/dl (6.4-8.2)
[2019-01-27] MEDS ORDERED: METHADONE HCL 10 MG TABLET (FOR DETOX USE ONLY) ONE (11:06)
[2019-01-27] MEDS ORDERED: METHADONE HCL 5 MG TABLET (FOR DETOX USE ONLY) ONE (11:06)
[2019-01-27] MEDS: PRENATAL VITAMINS W/ FOLIC ACID TABLET (FP) PO SCH (11:07)
[2019-01-27] MEDS: NICOTINE 21 MG/24 HOURS TOPICAL PATCH TD SCH (11:08)
--- NOTE | 2019-01-27 17:40 | PN ---
[facility] CIWA - CIWA Score Nausea/Vomitin-Mild Nausea/No Vomiting Muscle Tremors: 4-Moderate,w/Arms Extend Anxiety: 3 Agitation: 2 Paroxysmal Sweats: 3 Orientation: 0-Oriented Tacttile Disturbances: 0-None Auditory Disturbances: 0-None Visual Disturbances: 0-None Headache: 0-None Present CIWA-Ar Total Score: 13 [facility] COWS - Scale Resting Pulse: 1= [place] 81-100 Sweatin= Chills/Flushing Restless Observation: 3= Extraneous Movement Pupil Size: 0= Normal to Room Light Bone or Joint Aches: 1= Mild Discomfort Runny Nose/ Eye Tearin= Runny Nose/Eyes GI Upset > 30mins: 2= Nausea/Diarrhea Tremor Observation of Outstretched Hands: 2= Slight Tremor Visible Yawning Observation: 0= None Anxiety or Irritability: 1=Feels Anxious/Irritable Goose Flesh Skin: 0=Smooth Skin COWS Score: 13 [facility] Progress Note (SOAP) Subjective: Chills, tremor Objective: 01/27/19 17:39 Last Vital Signs Temp Pulse Resp BP Pulse Ox 98.2 F 92 H 18 135/77 01/27/19 14:24 01/27/19 14:24 01/27/19 14:24 01/27/19 14:24 Elevated b/p: has htn, on clonidine prn, takes norvasc at home Laboratory Tests 01/27/19 01/27/19 01/27/19 07:40 07:40 07:50 WBC 8.2 RBC 4.75 Hgb 15.3 Hct 45.3 MCV 95.3 MCH 32.1 MCHC 33.7 RDW 13.6 Plt Count 224 MPV 8.4 Sodium 140 Potassium 3.7 Chloride 107 Carbon Dioxide 28 Anion Gap 5 L BUN 7.8 Creatinine 1.0 Est GFR (CKD-EPI)AfAm 103.42 Est GFR (CKD-EPI)NonAf 89.23 Random Glucose 89 Calcium 8.8 Total Bilirubin 0.9 AST 9 L ALT 17 Alkaline Phosphatase 107 Total Protein 6.3 L Albumin 3.3 L RPR Titer Nonreactive Labs reviewed Assessment: 01/27/19 17:43 Withdrawal sxs Noted with elevated b/p, has htn Plan: Continue detox Encouraged PO water intake HTN: resume norvasc 5mg PO daily, d/c prn clonidine, monitor b/p
[2019-01-27] MEDS: THIAMINE HCL 100 MG TABLET (FP) PO SCH (22:51)
[2019-01-28] MEDS: chlordiazePOXIDE HCL 25 MG CAPSULE PO SCH ×4 (07:00→22:32)
[2019-01-28 09:56] LABS: PH,URINE 5.5 (5.0-8.0); URINE APPEARANCE CLEAR; URINE BILIRUBIN NEGATIVE (NEGATIVE); URINE COLOR YELLOW; URINE GLUCOSE (UA) NEGATIVE (NEGATIVE); URINE KETONE NEGATIVE (NEGATIVE); URINE LEUK ESTERASE NEGATIVE (NEGATIVE); URINE NITRITE NEGATIVE (NEGATIVE); URINE PROTEIN NEGATIVE (NEGATIVE); URINE UROBILINOGEN 0.2 mg/dL (0.2-1.0)
[2019-01-28] MEDS ORDERED: METHADONE HCL 10 MG TABLET (FOR DETOX USE ONLY) PO ONE (10:00)
[2019-01-28] MEDS: PRENATAL VITAMINS W/ FOLIC ACID TABLET (FP) PO SCH (10:44)
[2019-01-28] MEDS: NICOTINE 21 MG/24 HOURS TOPICAL PATCH TD SCH (10:44)
[2019-01-28] MEDS: amLODIPine BESYLATE 5 MG TABLET (FP) PO SCH (10:44)
[2019-01-28] MEDS ORDERED: LIDOCAINE VISCOUS 2% ORAL/TOP 20 ML UNIT-DOSE CUP MM PRN (11:01)
--- NOTE | 2019-01-28 13:39 | PN ---
[facility] CIWA - CIWA Score Nausea/Vomitin-No Nausea/No Vomiting Muscle Tremors: 3 Anxiety: 3 Agitation: 3 Paroxysmal Sweats: 2 Orientation: 0-Oriented Tacttile Disturbances: 0-None Auditory Disturbances: 0-None Visual Disturbances: 0-None Headache: 0-None Present CIWA-Ar Total Score: 11 [facility] COWS - Scale Resting Pulse: 1= [place] 81-100 Sweatin= Chills/Flushing Restless Observation: 1= Difficult to Sit Still Pupil Size: 0= Normal to Room Light Bone or Joint Aches: 1= Mild Discomfort Runny Nose/ Eye Tearin= Nasal Congestion GI Upset > 30mins: 0= None Tremor Observation of Outstretched Hands: 1= Tremor [place], Not Seen Yawning Observation: 1= 1-2x During Session Anxiety or Irritability: 1=Feels Anxious/Irritable Goose Flesh Skin: 0=Smooth Skin COWS Score: 8 [facility] Progress Note (SOAP) Subjective: sweats shakes interrupted sleep body aches interrupted sleep pain to my gums Objective: 01/28/19 13:37 Vital Signs Temperature 98.4 F 01/28/19 09:55 Pulse Rate 85 01/28/19 09:55 Respiratory Rate 18 01/28/19 09:55 Blood Pressure 135/73 01/28/19 09:55 O2 Sat by Pulse Oximetry (%) Laboratory Tests 01/27/19 01/27/19 01/27/19 07:40 07:40 07:50 WBC 8.2 RBC 4.75 Hgb 15.3 Hct 45.3 MCV 95.3 MCH 32.1 MCHC 33.7 RDW 13.6 Plt Count 224 MPV 8.4 Sodium 140 Potassium 3.7 Chloride 107 Carbon Dioxide 28 Anion Gap 5 L BUN 7.8 Creatinine 1.0 Est GFR (CKD-EPI)AfAm 103.42 Est GFR (CKD-EPI)NonAf 89.23 Random Glucose 89 Calcium 8.8 Total Bilirubin 0.9 AST 9 L ALT 17 Alkaline Phosphatase 107 Total Protein 6.3 L Albumin 3.3 L Urine Color Urine Appearance Urine pH Ur Specific [place] Urine Protein Urine Glucose (UA) Urine Ketones Urine Blood Urine Nitrite Urine Bilirubin Urine Urobilinogen Ur Leukocyte Esterase RPR Titer Nonreactive 01/28/19 07:50 WBC RBC Hgb Hct MCV MCH MCHC RDW Plt Count MPV Sodium Potassium Chloride Carbon Dioxide Anion Gap BUN Creatinine Est GFR (CKD-EPI)AfAm Est GFR (CKD-EPI)NonAf Random Glucose Calcium Total Bilirubin AST ALT Alkaline Phosphatase Total Protein Albumin Urine Color Yellow Urine Appearance Clear Urine pH 5.5 D Ur Specific [place] 1.014 Urine Protein Negative Urine Glucose (UA) Negative Urine Ketones Negative Urine Blood Negative Urine Nitrite Negative Urine Bilirubin Negative Urine Urobilinogen 0.2 Ur Leukocyte Esterase Negative RPR Titer labs noted aaox3 ambulating no acute distress Assessment: 01/28/19 13:38 withdrawal sx Plan: continue detox lidocaine s/s ordered
[2019-01-28] MEDS: THIAMINE HCL 100 MG TABLET (FP) PO SCH (22:31)
[2019-01-29] MEDS ORDERED: chlordiazePOXIDE HCL 10 MG CAPSULE PO PRN
[2019-01-29] MEDS: chlordiazePOXIDE HCL 10 MG CAPSULE PO SCH ×4 (05:41→22:44)
[2019-01-29] MEDS ORDERED: METHADONE HCL 10 MG TABLET (FOR DETOX USE ONLY) ONE (09:35)
[2019-01-29] MEDS ORDERED: METHADONE HCL 5 MG TABLET (FOR DETOX USE ONLY) ONE (09:35)
[2019-01-29] MEDS ORDERED: METHADONE (DETOX) 10 MG, METHADONE (DETOX) 5 MG PO ONE (10:00)
[2019-01-29] MEDS: PRENATAL VITAMINS W/ FOLIC ACID TABLET (FP) PO SCH (10:50)
[2019-01-29] MEDS: NICOTINE 21 MG/24 HOURS TOPICAL PATCH TD SCH (10:51)
[2019-01-29] MEDS: amLODIPine BESYLATE 5 MG TABLET (FP) PO SCH (10:51)
--- NOTE | 2019-01-29 14:36 | PN ---
[facility] CIWA - CIWA Score Nausea/Vomitin-No Nausea/No Vomiting Muscle Tremors: 2 Anxiety: 2 Agitation: 2 Paroxysmal Sweats: 2 Orientation: 0-Oriented Tacttile Disturbances: 0-None Auditory Disturbances: 0-None Visual Disturbances: 0-None Headache: 0-None Present CIWA-Ar Total Score: 8 [facility] COWS - Scale Resting Pulse: 1= [place] 81-100 Sweatin= Chills/Flushing Restless Observation: 1= Difficult to Sit Still Pupil Size: 0= Normal to Room Light Bone or Joint Aches: 1= Mild Discomfort Runny Nose/ Eye Tearin= Nasal Congestion GI Upset > 30mins: 0= None Tremor Observation of Outstretched Hands: 1= Tremor [place], Not Seen Yawning Observation: 1= 1-2x During Session Anxiety or Irritability: 1=Feels Anxious/Irritable Goose Flesh Skin: 0=Smooth Skin COWS Score: 8 S Progress Note (SOAP) Subjective: sweats shakes interrupted sleep body aches Objective: 01/29/19 14:36 Vital Signs Temperature 97.8 F 01/29/19 13:22 Pulse Rate 96 H 01/29/19 13:22 Respiratory Rate 18 01/29/19 13:22 Blood Pressure 152/77 01/29/19 13:22 O2 Sat by Pulse Oximetry (%) Laboratory Tests 01/27/19 01/27/19 01/27/19 07:40 07:40 07:50 WBC 8.2 RBC 4.75 Hgb 15.3 Hct 45.3 MCV 95.3 MCH 32.1 MCHC 33.7 RDW 13.6 Plt Count 224 MPV 8.4 Sodium 140 Potassium 3.7 Chloride 107 Carbon Dioxide 28 Anion Gap 5 L BUN 7.8 Creatinine 1.0 Est GFR (CKD-EPI)AfAm 103.42 Est GFR (CKD-EPI)NonAf 89.23 Random Glucose 89 Calcium 8.8 Total Bilirubin 0.9 AST 9 L ALT 17 Alkaline Phosphatase 107 Total Protein 6.3 L Albumin 3.3 L Urine Color Urine Appearance Urine pH Ur Specific [place] Urine Protein Urine Glucose (UA) Urine Ketones Urine Blood Urine Nitrite Urine Bilirubin Urine Urobilinogen Ur Leukocyte Esterase RPR Titer Nonreactive 01/28/19 07:50 WBC RBC Hgb Hct MCV MCH MCHC RDW Plt Count MPV Sodium Potassium Chloride Carbon Dioxide Anion Gap BUN Creatinine Est GFR (CKD-EPI)AfAm Est GFR (CKD-EPI)NonAf Random Glucose Calcium Total Bilirubin AST ALT Alkaline Phosphatase Total Protein Albumin Urine Color Yellow Urine Appearance Clear Urine pH 5.5 D Ur Specific [place] 1.014 Urine Protein Negative Urine Glucose (UA) Negative Urine Ketones Negative Urine Blood Negative Urine Nitrite Negative Urine Bilirubin Negative Urine Urobilinogen 0.2 Ur Leukocyte Esterase Negative RPR Titer labs noted aaox3 ambulating no acute distress Assessment: 01/29/19 14:36 withdrawal sx Plan: continue detox increase fluids
[2019-01-29] MEDS: THIAMINE HCL 100 MG TABLET (FP) PO SCH (22:44)
[2019-01-30] MEDS: chlordiazePOXIDE HCL 10 MG CAPSULE PO SCH ×2 (06:56→18:20)
[2019-01-30] MEDS ORDERED: METHADONE HCL 10 MG TABLET (FOR DETOX USE ONLY) PO ONE (10:00)
[2019-01-30] MEDS: amLODIPine BESYLATE 5 MG TABLET (FP) PO SCH (10:15)
[2019-01-30] MEDS: PRENATAL VITAMINS W/ FOLIC ACID TABLET (FP) PO SCH (10:15)
[2019-01-30] MEDS: NICOTINE 21 MG/24 HOURS TOPICAL PATCH TD SCH (10:16)
--- NOTE | 2019-01-30 13:06 | PN ---
[facility] CIWA - CIWA Score Nausea/Vomitin-No Nausea/No Vomiting Muscle Tremors: None Anxiety: 1-Mildly Anxious Agitation: 0-Normal Activity Paroxysmal Sweats: No Perspiration Orientation: 0-Oriented Tacttile Disturbances: 0-None Auditory Disturbances: 0-None Visual Disturbances: 0-None Headache: 0-None Present CIWA-Ar Total Score: 1 S COWS - Scale Resting Pulse: 0= [place] 80 or Below Sweatin= No chills or Flushing Restless Observation: 1= Difficult to Sit Still Pupil Size: 0= Normal to Room Light Bone or Joint Aches: 1= Mild Discomfort Runny Nose/ Eye Tearin= None GI Upset > 30mins: 0= None Tremor Observation of Outstretched Hands: 1= Tremor [place], Not Seen Yawning Observation: 0= None Anxiety or Irritability: 1=Feels Anxious/Irritable Goose Flesh Skin: 0=Smooth Skin COWS Score: 4 [facility] Progress Note (SOAP) Subjective: agitation restless Objective: 01/30/19 13:06 Vital Signs Temperature 97.9 F 01/30/19 09:24 Pulse Rate 91 H 01/30/19 09:24 Respiratory Rate 18 01/30/19 09:24 Blood Pressure 123/66 01/30/19 09:24 O2 Sat by Pulse Oximetry (%) aaox3 ambulating no acute distress Assessment: 01/30/19 13:06 mild withdrawals Plan: continue detox d/c in am
[2019-01-30] MEDS: THIAMINE HCL 100 MG TABLET (FP) PO SCH (22:50)
[2019-01-31] MEDS ORDERED: chlordiazePOXIDE HCL 10 MG CAPSULE PO ONE (05:00)
[2019-01-31] MEDS ORDERED: METHADONE HCL 5 MG TABLET (FOR DETOX USE ONLY) PO ONE (06:00)
--- NOTE | 2019-01-31 09:19 | DS ---
[facility] Detox Discharge Summary Admission Date: 01/26/19 Discharge Date: 01/31/19 - History Present History: Alcohol Dependence, Cannabis Dependence, Cocaine Dependence, Opioid Dependence - Physical Exam Results Vital Signs: Vital Signs Temperature 98.2 F 01/30/19 21:17 Pulse Rate 83 01/30/19 21:17 Respiratory Rate 18 01/31/19 03:30 Blood Pressure 154/80 01/30/19 21:17 O2 Sat by Pulse Oximetry (%) Pertinent Admission Physical Exam Findings: pt arrived in withdrawals Vital Signs Temperature 98.2 F 01/30/19 21:17 Pulse Rate 83 01/30/19 21:17 Respiratory Rate 18 01/31/19 03:30 Blood Pressure 154/80 01/30/19 21:17 O2 Sat by Pulse Oximetry (%) Laboratory Tests 01/27/19 01/27/19 01/27/19 07:40 07:40 07:50 WBC 8.2 RBC 4.75 Hgb 15.3 Hct 45.3 MCV 95.3 MCH 32.1 MCHC 33.7 RDW 13.6 Plt Count 224 MPV 8.4 Sodium 140 Potassium 3.7 Chloride 107 Carbon Dioxide 28 Anion Gap 5 L BUN 7.8 Creatinine 1.0 Est GFR (CKD-EPI)AfAm 103.42 Est GFR (CKD-EPI)NonAf 89.23 Random Glucose 89 Calcium 8.8 Total Bilirubin 0.9 AST 9 L ALT 17 Alkaline Phosphatase 107 Total Protein 6.3 L Albumin 3.3 L Urine Color Urine Appearance Urine pH Ur Specific [place] Urine Protein Urine Glucose (UA) Urine Ketones Urine Blood Urine Nitrite Urine Bilirubin Urine Urobilinogen Ur Leukocyte Esterase RPR Titer Nonreactive 01/28/19 07:50 WBC RBC Hgb Hct MCV MCH MCHC RDW Plt Count MPV Sodium Potassium Chloride Carbon Dioxide Anion Gap BUN Creatinine Est GFR (CKD-EPI)AfAm Est GFR (CKD-EPI)NonAf Random Glucose Calcium Total Bilirubin AST ALT Alkaline Phosphatase Total Protein Albumin Urine Color Yellow Urine Appearance Clear Urine pH 5.5 D Ur Specific [place] 1.014 Urine Protein Negative Urine Glucose (UA) Negative Urine Ketones Negative Urine Blood Negative Urine Nitrite Negative Urine Bilirubin Negative Urine Urobilinogen 0.2 Ur Leukocyte Esterase Negative RPR Titer today pt is aaox3 ambulating no acute distress no no s/s of withdrawals - Treatment Hospital Course: Detox Protocol Followed, Detoxed Safely, Responded well, Discharged Condition Good, Rehab Referral Accepted - Medication Discharge Medications: Ambulatory Orders Gabapentin [Neurontin -] 300 mg PO BID #60 capsule 05/14/18 Olanzapine [Zyprexa] 20 mg PO HS 08/31/18 Amlodipine Besylate [Norvasc -] 5 mg PO DAILY 30 Days #30 tablet 09/04/18 - Diagnosis (1) Alcohol dependence with uncomplicated withdrawal Current Visit: Yes Status: Chronic (2) Cannabis dependence Current Visit: Yes Status: Chronic (3) Genital herpes Current Visit: No Status: Acute (4) Opioid dependence with withdrawal Current Visit: Yes Status: Chronic (5) Substance-induced sleep disorder Current Visit: No Status: Acute (6) Asthma Current Visit: Yes Status: Chronic Qualifiers: Asthma severity: mild Asthma persistence: intermittent Asthma complication type: uncomplicated Qualified Code(s): J45.20 - Mild intermittent asthma, uncomplicated (7) Bipolar disorder Current Visit: No Status: Chronic (8) Cocaine dependence Current Visit: Yes Status: Chronic Qualifiers: Substance use status: uncomplicated Qualified Code(s): F14.20 - Cocaine dependence, uncomplicated (9) History of bipolar disorder Current Visit: No Status: Chronic (10) Insomnia Current Visit: No Status: Chronic Qualifiers: Insomnia type: unspecified Qualified Code(s): G47.00 - Insomnia, unspecified (11) Nicotine dependence Current Visit: Yes Status: Chronic Qualifiers: Nicotine product type: cigarettes Substance use status: uncomplicated Qualified Code(s): F17.210 - Nicotine dependence, cigarettes, uncomplicated (12) Non-compliance Current Visit: No Status: Chronic (13) Substance induced mood disorder Current Visit: No Status: Chronic (14) Uncomplicated sedative, hypnotic or anxiolytic withdrawal Current Visit: Yes Status: Chronic (15) Mood disorder Current Visit: No Status: Suspected - AMA Did Patient Leave Against Medical Advice: No
[2019-01-31 09:59] VITALS: TEMP 98.1
[2019-01-31] MEDS: PRENATAL VITAMINS W/ FOLIC ACID TABLET (FP) PO SCH (10:40)
[2019-01-31] MEDS: NICOTINE 21 MG/24 HOURS TOPICAL PATCH TD SCH (10:40)
[2019-01-31] MEDS: amLODIPine BESYLATE 5 MG TABLET (FP) PO SCH (10:40)
[2019-01-31 13:34] VITALS: BP 172/86; PULSE 85
== END 2019-01-31 14:35 | disposition other institution (70) | DRG 773 ==
LOC: YASAS 11:30 → Y6N 16:33
PROVIDERS: ADMIT Allergy & Immunology; ATTEND Allergy & Immunology
PROC: HZ2ZZZZ Detoxification Services for Substance Abuse Treatment (ICD-10-PCS; principal; 2019-01-26)
DX: F11.23 Opioid dependence with withdrawal (principal); F10.230 Alcohol dependence with withdrawal, uncomplicated; F13.230 Sedative, hypnotic or anxiolytic dependence with withdrawal, uncomplicated; F14.20 Cocaine dependence, uncomplicated; F12.20 Cannabis dependence, uncomplicated; F17.210 Nicotine dependence, cigarettes, uncomplicated; F31.9 Bipolar disorder, unspecified; F19.24 Other psychoactive substance dependence with psychoactive substance-induced mood disorder; F19.282 Other psychoactive substance dependence with psychoactive substance-induced sleep disorder; F39 Unspecified mood [affective] disorder; I10 Essential (primary) hypertension; G47.00 Insomnia, unspecified; J45.20 Mild intermittent asthma, uncomplicated; R63.4 Abnormal weight loss; Z87.438 Personal history of other diseases of male genital organs; Z91.14 Patient's other noncompliance with medication regimen; Z91.018 Allergy to other foods
CPT/HCPCS: 36415; 71045-TC-FY; 80053; 81003; 85027; 86593

== ENCOUNTER 2019-01-31 14:07 | Inpatient (IN) | payer OTHER ==
--- NOTE | 2019-01-31 12:49 | HP ---
[facility] Rehab Assess/Revision - Admission History Ad[facility] - Findings Detox History & Physical reviewed: Yes Concur with findings: Yes Inpatient Rehab Admission - Rehab Decision to Admit Inpatient rehab admission?: Yes - Initial Determination Are CD services needed?: Yes Free of communicable disease: Yes Not in need of hospitalization: Yes - Rehab Admission Criteria Previous failed treatment: Yes Poor recovery environment: Yes Comorbidities: Yes Lacks judgement: Yes Patient is meeting Inpatient Rehab admission criteria:: Yes
[~2019-01-31 14:07] MED LIST: ACETAMINOPHEN 325 MG TABLET (FP) PO PRN; LOPERAMIDE HCL 2 MG CAPSULE PO PRN; MAG HYDROX/AL HYDROX/SIMETH 30 ML UNIT-DOSE CUP PO PRN; MAGNESIUM CITRATE 300 ML BOTTLE PO PRN; MAGNESIUM HYDROX 2400MG/30ML ORAL SUSPENSION 30 ML CUP PO PRN; MENTHOL/PHENOL 1 EACH UD MM PRN; NICOTINE POLACRILEX 4 MG GUM BUC PRN; P-EPHED 60MG/TRIPROLIDI 2.5MG TABLET PO PRN; guaiFENesin 200 MG/10 ML 10 ML UNIT-DOSE CUPS PO PRN; hydrOXYzine PAMOATE 50 MG CAPSULE (FP) PO PRN
--- NOTE | 2019-01-31 15:51 | PN ---
[facility] Progress Note (SOAP) Subjective: patient c/o pain and burning in his mouth. Objective: P/E General; No apparent distress HEENTM: two postules in mouth, upper palate and right check. Skin; clear, color consistent throughout trunk and extremities Neuro; no neurological deficits noted 01/31/19 15:51 Vital Signs Period Temp Pulse Resp BP Sys/Tejeda Pulse Ox Last 24 Hr 97.4 F 83 18 125/74 01/31/19 15:52 Assessment: herpes 01/31/19 15:54 Plan: Valtex and magic mouthwash ordered.
[2019-01-31] MEDS: MAG HYDROX/ALH/SMC/DPHA/LIDO 240 ML MOUTHWASH MM SCH ×2 (18:47→23:43)
[2019-01-31] MEDS: MELATONIN 5 MG TABLETS PO PRN (21:12)
[2019-01-31] MEDS: valACYclovir HCL 500 MG TABLET (FP) PO SCH (21:12)
[2019-01-31] MEDS: THIAMINE HCL 100 MG TABLET (FP) PO SCH (21:12)
[2019-02-01] MEDS: MAG HYDROX/ALH/SMC/DPHA/LIDO 240 ML MOUTHWASH MM SCH ×3 (06:20→18:21)
[2019-02-01] MEDS: NICOTINE 21 MG/24 HOURS TOPICAL PATCH TD SCH (10:06)
[2019-02-01] MEDS: valACYclovir HCL 500 MG TABLET (FP) PO SCH ×2 (10:06→21:51)
[2019-02-01] MEDS: amLODIPine BESYLATE 5 MG TABLET (FP) PO SCH (10:06)
[2019-02-01] MEDS: PRENATAL VITAMINS W/ FOLIC ACID TABLET (FP) PO SCH (10:07)
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
[2019-02-01] MEDS: IBUPROFEN 400 MG TABLET (FP) PO PRN (15:51)
[2019-02-01] MEDS: THIAMINE HCL 100 MG TABLET (FP) PO SCH (21:50)
[2019-02-01] MEDS: MELATONIN 5 MG TABLETS PO PRN (21:51)
[2019-02-02] MEDS: MAG HYDROX/ALH/SMC/DPHA/LIDO 240 ML MOUTHWASH MM SCH ×5 (00:08→23:54)
[2019-02-02] MEDS: PRENATAL VITAMINS W/ FOLIC ACID TABLET (FP) PO SCH (09:58)
[2019-02-02] MEDS: valACYclovir HCL 500 MG TABLET (FP) PO SCH ×2 (09:58→21:47)
[2019-02-02] MEDS: NICOTINE 21 MG/24 HOURS TOPICAL PATCH TD SCH (09:58)
[2019-02-02] MEDS: amLODIPine BESYLATE 5 MG TABLET (FP) PO SCH (09:58)
[2019-02-02] MEDS: IBUPROFEN 400 MG TABLET (FP) PO PRN (11:20)
[2019-02-02] MEDS: THIAMINE HCL 100 MG TABLET (FP) PO SCH (21:47)
[2019-02-02] MEDS: MELATONIN 5 MG TABLETS PO PRN (21:47)
[2019-02-03] MEDS: MAG HYDROX/ALH/SMC/DPHA/LIDO 240 ML MOUTHWASH MM SCH ×4 (06:38→23:55)
[2019-02-03] MEDS: PRENATAL VITAMINS W/ FOLIC ACID TABLET (FP) PO SCH (10:48)
[2019-02-03] MEDS: amLODIPine BESYLATE 5 MG TABLET (FP) PO SCH (10:48)
[2019-02-03] MEDS: NICOTINE 21 MG/24 HOURS TOPICAL PATCH TD SCH (10:48)
[2019-02-03] MEDS: valACYclovir HCL 500 MG TABLET (FP) PO SCH ×2 (11:13→21:46)
[2019-02-03] MEDS: THIAMINE HCL 100 MG TABLET (FP) PO SCH (21:46)
[2019-02-04] MEDS: MAG HYDROX/ALH/SMC/DPHA/LIDO 240 ML MOUTHWASH MM SCH ×4 (06:20→18:17)
--- NOTE | 2019-02-04 07:32 | PN ---
S Progress Note Note: Patient requests to be ordered Gabapentin 300 mg/tid which he was on prior to admission along with Zyprexa he is currently on
[2019-02-04] MEDS: GABAPENTIN 300 MG CAPSULE (FP) PO SCH ×3 (08:09→22:15)
[2019-02-04] MEDS ORDERED: PT OWN MED DRAWER 7, Y5N ONE (09:30)
[2019-02-04] MEDS: NICOTINE 21 MG/24 HOURS TOPICAL PATCH TD SCH (09:52)
[2019-02-04] MEDS: amLODIPine BESYLATE 5 MG TABLET (FP) PO SCH (09:52)
[2019-02-04] MEDS: PRENATAL VITAMINS W/ FOLIC ACID TABLET (FP) PO SCH (09:52)
[2019-02-04] MEDS: valACYclovir HCL 500 MG TABLET (FP) PO SCH ×2 (09:52→22:15)
[2019-02-04] MEDS: OLANZapine 10 MG TABLET PO SCH (22:15)
[2019-02-04] MEDS: THIAMINE HCL 100 MG TABLET (FP) PO SCH (22:16)
[2019-02-05] MEDS: MAG HYDROX/ALH/SMC/DPHA/LIDO 240 ML MOUTHWASH MM SCH ×5 (00:06→23:50)
[2019-02-05] MEDS: GABAPENTIN 300 MG CAPSULE (FP) PO SCH ×3 (06:18→21:42)
[2019-02-05] MEDS: NICOTINE 21 MG/24 HOURS TOPICAL PATCH TD SCH (09:58)
[2019-02-05] MEDS: PRENATAL VITAMINS W/ FOLIC ACID TABLET (FP) PO SCH (09:58)
[2019-02-05] MEDS: amLODIPine BESYLATE 5 MG TABLET (FP) PO SCH (09:58)
[2019-02-05] MEDS: valACYclovir HCL 500 MG TABLET (FP) PO SCH ×2 (09:59→21:42)
[2019-02-05] MEDS: OLANZapine 10 MG TABLET PO SCH (21:42)
[2019-02-05] MEDS: THIAMINE HCL 100 MG TABLET (FP) PO SCH (21:42)
[2019-02-05] MEDS: MELATONIN 5 MG TABLETS PO PRN (21:42)
[2019-02-06] MEDS: MAG HYDROX/ALH/SMC/DPHA/LIDO 240 ML MOUTHWASH MM SCH ×3 (06:19→17:15)
[2019-02-06] MEDS: GABAPENTIN 300 MG CAPSULE (FP) PO SCH ×3 (06:19→21:39)
[2019-02-06] MEDS: PRENATAL VITAMINS W/ FOLIC ACID TABLET (FP) PO SCH (09:51)
[2019-02-06] MEDS: valACYclovir HCL 500 MG TABLET (FP) PO SCH ×2 (09:51→21:39)
[2019-02-06] MEDS: amLODIPine BESYLATE 5 MG TABLET (FP) PO SCH (09:51)
[2019-02-06] MEDS: NICOTINE 21 MG/24 HOURS TOPICAL PATCH TD SCH (09:51)
[2019-02-06] MEDS: THIAMINE HCL 100 MG TABLET (FP) PO SCH (21:39)
[2019-02-06] MEDS: OLANZapine 10 MG TABLET PO SCH (21:39)
[2019-02-07] MEDS: MAG HYDROX/ALH/SMC/DPHA/LIDO 240 ML MOUTHWASH MM SCH ×5 (01:13→23:26)
[2019-02-07] MEDS: GABAPENTIN 300 MG CAPSULE (FP) PO SCH ×3 (06:16→21:41)
--- NOTE | 2019-02-07 09:30 | PN ---
S Progress Note (SOAP) Subjective: Patient requesting to review his labs. Specifically interested in the results of the HIV test. States that when he was in the community, one day he woke up with a needle in his pocket and he does not know how it got there and denies using needles. States he only sniffs. Objective: labs not available in the data format. All labs were within normal limits. The HIV test was from July of 2018. A more recent test was not available. 02/07/19 09:28 Vital Signs (72 hours) 02/04/19 02/05/19 02/05/19 09:30 03:30 07:20 Temperature 97.7 F Pulse Rate 83 74 Respiratory 18 18 18 Rate Blood Pressure 134/77 136/81 02/05/19 02/06/19 02/06/19 11:58 00:30 03:30 Temperature Pulse Rate 94 H Respiratory 18 18 18 Rate Blood Pressure 113/65 02/06/19 02/07/19 02/07/19 07:02 00:30 03:30 Temperature 97.5 F L Pulse Rate 79 Respiratory 18 18 18 Rate Blood Pressure 131/75 02/07/19 07:01 Temperature 97.7 F Pulse Rate 81 Respiratory 18 Rate Blood Pressure 130/64 Assessment: At risk for HIV 02/07/19 09:30 Plan: Order for HIV test was placed.
[2019-02-07] MEDS: amLODIPine BESYLATE 5 MG TABLET (FP) PO SCH (09:33)
[2019-02-07] MEDS: valACYclovir HCL 500 MG TABLET (FP) PO SCH ×2 (09:33→21:41)
[2019-02-07] MEDS: NICOTINE 21 MG/24 HOURS TOPICAL PATCH TD SCH (09:33)
[2019-02-07] MEDS: PRENATAL VITAMINS W/ FOLIC ACID TABLET (FP) PO SCH (09:33)
[2019-02-07] MEDS: THIAMINE HCL 100 MG TABLET (FP) PO SCH (21:41)
[2019-02-07] MEDS: OLANZapine 10 MG TABLET PO SCH (21:41)
[2019-02-07] MEDS: MELATONIN 5 MG TABLETS PO PRN (21:41)
[2019-02-08] MEDS ORDERED: PT OWN MED DRAWER 7, Y5N ONE (03:24)
[2019-02-08] MEDS: GABAPENTIN 300 MG CAPSULE (FP) PO SCH ×3 (05:57→21:16)
[2019-02-08] MEDS: MAG HYDROX/ALH/SMC/DPHA/LIDO 240 ML MOUTHWASH MM SCH ×4 (05:58→23:39)
[2019-02-08] MEDS: PRENATAL VITAMINS W/ FOLIC ACID TABLET (FP) PO SCH (09:47)
[2019-02-08] MEDS: amLODIPine BESYLATE 5 MG TABLET (FP) PO SCH (09:47)
[2019-02-08] MEDS: NICOTINE 21 MG/24 HOURS TOPICAL PATCH TD SCH (09:48)
--- NOTE | 2019-02-08 11:51 | PN ---
S Progress Note Note: Patient c/o LBP due to sciatica. Patient denies recent falls and injuries. Laboratory Tests 02/07/19 13:30 HIV 1&2 Ag/Ab, 4th Gen Non reactive Laboratory Tests 02/07/19 13:30 HIV 1&2 Ag/Ab, 4th Gen Non reactive Vital Signs Temperature 98.1 F 02/08/19 07:13 Pulse Rate 94 H 02/08/19 10:00 Respiratory Rate 20 02/08/19 07:13 Blood Pressure 131/74 02/08/19 10:00 O2 Sat by Pulse Oximetry (%) PE: alert and oriented x 3 skin warm and dry +perrla eoms intact bl LS spine tendernes ext full rom, amb ad anmol A/P: LBP will order lidocaine patch flexeril prn monitor clinically
[2019-02-08] MEDS: LIDOCAINE 5% TOPICAL PATCH TP SCH (12:44)
[2019-02-08] MEDS: CYCLOBENZAPRINE HCL 5 MG TABLET PO PRN (13:44)
[2019-02-08] MEDS: MELATONIN 5 MG TABLETS PO PRN (21:16)
[2019-02-08] MEDS: LIDOCAINE PATCH REMOVAL MC SCH (21:16)
[2019-02-08] MEDS: THIAMINE HCL 100 MG TABLET (FP) PO SCH (21:16)
[2019-02-08] MEDS: OLANZapine 10 MG TABLET PO SCH (21:16)
[2019-02-09] MEDS: MAG HYDROX/ALH/SMC/DPHA/LIDO 240 ML MOUTHWASH MM SCH ×3 (06:20→17:45)
[2019-02-09] MEDS: GABAPENTIN 300 MG CAPSULE (FP) PO SCH ×3 (06:20→21:49)
[2019-02-09] MEDS: PRENATAL VITAMINS W/ FOLIC ACID TABLET (FP) PO SCH (09:57)
[2019-02-09] MEDS: amLODIPine BESYLATE 5 MG TABLET (FP) PO SCH (09:57)
[2019-02-09] MEDS: LIDOCAINE 5% TOPICAL PATCH TP SCH (09:58)
[2019-02-09] MEDS: CYCLOBENZAPRINE HCL 5 MG TABLET PO PRN ×2 (09:58→21:49)
[2019-02-09] MEDS: NICOTINE 21 MG/24 HOURS TOPICAL PATCH TD SCH (09:58)
[2019-02-09] MEDS: OLANZapine 10 MG TABLET PO SCH (21:49)
[2019-02-09] MEDS: THIAMINE HCL 100 MG TABLET (FP) PO SCH (21:59)
[2019-02-09] MEDS: LIDOCAINE PATCH REMOVAL MC SCH (21:59)
[2019-02-10] MEDS: MAG HYDROX/ALH/SMC/DPHA/LIDO 240 ML MOUTHWASH MM SCH ×5 (06:13→23:04)
[2019-02-10] MEDS: GABAPENTIN 300 MG CAPSULE (FP) PO SCH ×3 (06:13→21:18)
[2019-02-10] MEDS: LIDOCAINE 5% TOPICAL PATCH TP SCH (09:33)
[2019-02-10] MEDS: CYCLOBENZAPRINE HCL 5 MG TABLET PO PRN (09:33)
[2019-02-10] MEDS: NICOTINE 21 MG/24 HOURS TOPICAL PATCH TD SCH (09:33)
[2019-02-10] MEDS: PRENATAL VITAMINS W/ FOLIC ACID TABLET (FP) PO SCH (09:34)
[2019-02-10] MEDS: amLODIPine BESYLATE 5 MG TABLET (FP) PO SCH (09:34)
[2019-02-10] MEDS: IBUPROFEN 400 MG TABLET (FP) PO PRN (15:54)
[2019-02-10] MEDS: THIAMINE HCL 100 MG TABLET (FP) PO SCH (21:17)
[2019-02-10] MEDS: LIDOCAINE PATCH REMOVAL MC SCH (21:17)
[2019-02-10] MEDS: OLANZapine 10 MG TABLET PO SCH (21:18)
[2019-02-11] MEDS: GABAPENTIN 300 MG CAPSULE (FP) PO SCH ×3 (06:24→21:35)
[2019-02-11] MEDS: MAG HYDROX/ALH/SMC/DPHA/LIDO 240 ML MOUTHWASH MM SCH ×4 (06:25→23:15)
[2019-02-11] MEDS: NICOTINE 21 MG/24 HOURS TOPICAL PATCH TD SCH (10:53)
[2019-02-11] MEDS: amLODIPine BESYLATE 5 MG TABLET (FP) PO SCH (10:53)
[2019-02-11] MEDS: LIDOCAINE 5% TOPICAL PATCH TP SCH (10:53)
[2019-02-11] MEDS: PRENATAL VITAMINS W/ FOLIC ACID TABLET (FP) PO SCH (10:54)
[2019-02-11] MEDS: THIAMINE HCL 100 MG TABLET (FP) PO SCH (21:35)
[2019-02-11] MEDS: OLANZapine 10 MG TABLET PO SCH (21:35)
[2019-02-11] MEDS: MELATONIN 5 MG TABLETS PO PRN (21:35)
[2019-02-11] MEDS: LIDOCAINE PATCH REMOVAL MC SCH (21:35)
[2019-02-12] MEDS: MAG HYDROX/ALH/SMC/DPHA/LIDO 240 ML MOUTHWASH MM SCH ×3 (05:58→17:42)
[2019-02-12] MEDS: GABAPENTIN 300 MG CAPSULE (FP) PO SCH ×3 (05:58→21:44)
[2019-02-12] MEDS: NICOTINE 21 MG/24 HOURS TOPICAL PATCH TD SCH (09:47)
[2019-02-12] MEDS: PRENATAL VITAMINS W/ FOLIC ACID TABLET (FP) PO SCH (09:47)
[2019-02-12] MEDS: amLODIPine BESYLATE 5 MG TABLET (FP) PO SCH (09:47)
[2019-02-12] MEDS: LIDOCAINE 5% TOPICAL PATCH TP SCH (09:47)
[2019-02-12] MEDS ORDERED: COLLOIDAL OATMEAL 1 BAR EACH TP PRN (10:26)
--- NOTE | 2019-02-12 14:58 | PN ---
S Progress Note (SOAP) Subjective: Patient c/o rash on forehead. Denies itchiness. States he started yesterday. Objective: Scattered raised postules on forehead. 02/12/19 14:57 Assessment: rash 02/12/19 14:58 Plan: benzoin peroxide and aveeno soap ordered.
[2019-02-12] MEDS: OLANZapine 10 MG TABLET PO SCH (21:44)
[2019-02-12] MEDS: THIAMINE HCL 100 MG TABLET (FP) PO SCH (21:44)
[2019-02-12] MEDS: MELATONIN 5 MG TABLETS PO PRN (21:44)
[2019-02-12] MEDS: LIDOCAINE PATCH REMOVAL MC SCH (21:44)
[2019-02-13] MEDS: MAG HYDROX/ALH/SMC/DPHA/LIDO 240 ML MOUTHWASH MM SCH ×5 (00:05→23:05)
[2019-02-13] MEDS: GABAPENTIN 300 MG CAPSULE (FP) PO SCH ×3 (06:15→21:24)
[2019-02-13] MEDS: amLODIPine BESYLATE 5 MG TABLET (FP) PO SCH (10:28)
[2019-02-13] MEDS: PRENATAL VITAMINS W/ FOLIC ACID TABLET (FP) PO SCH (10:28)
[2019-02-13] MEDS: LIDOCAINE 5% TOPICAL PATCH TP SCH (10:28)
[2019-02-13] MEDS: NICOTINE 21 MG/24 HOURS TOPICAL PATCH TD SCH (10:29)
[2019-02-13] MEDS: BENZOYL PEROXIDE 5% 60 GM GEL..GRAM. TP SCH (10:29)
[2019-02-13] MEDS: LIDOCAINE PATCH REMOVAL MC SCH (21:24)
[2019-02-13] MEDS: CYCLOBENZAPRINE HCL 5 MG TABLET PO PRN (21:24)
[2019-02-13] MEDS: OLANZapine 10 MG TABLET PO SCH (21:24)
[2019-02-13] MEDS: MELATONIN 5 MG TABLETS PO PRN (21:24)
[2019-02-13] MEDS: THIAMINE HCL 100 MG TABLET (FP) PO SCH (21:24)
[2019-02-14] MEDS: GABAPENTIN 300 MG CAPSULE (FP) PO SCH ×3 (06:03→21:34)
[2019-02-14] MEDS: MAG HYDROX/ALH/SMC/DPHA/LIDO 240 ML MOUTHWASH MM SCH ×4 (06:03→23:10)
[2019-02-14] MEDS: amLODIPine BESYLATE 5 MG TABLET (FP) PO SCH (09:40)
[2019-02-14] MEDS: PRENATAL VITAMINS W/ FOLIC ACID TABLET (FP) PO SCH (09:40)
[2019-02-14] MEDS: BENZOYL PEROXIDE 5% 60 GM GEL..GRAM. TP SCH (09:41)
[2019-02-14] MEDS: NICOTINE 21 MG/24 HOURS TOPICAL PATCH TD SCH (09:41)
[2019-02-14] MEDS: LIDOCAINE 5% TOPICAL PATCH TP SCH (09:41)
--- NOTE | 2019-02-14 10:52 | DS ---
[facility] Rehab Discharge Summary - [facility] Rehab Discharge Summary Admission Date: 01/31/19 Discharge Date: 02/15/19 - History Present History: Alcohol dependence, Cannabis dependence, Cocaine dependence, Opioid dependence Pertinent Past History: this 48 years old male with heroin,alcohol,cocaine,marijuana dependence with hx of multiple admissions and relapses hypertension nicotine dependence 1 pack/day bipolar disorder no seizure syncope positive ppd coughing for few days longest period of sobriety 3 years - Discharge Physical Exam Vital Signs: Vital Signs Temperature 97.9 F 02/14/19 06:56 Pulse Rate 80 02/14/19 06:56 Respiratory Rate 18 02/14/19 06:56 Blood Pressure 116/79 02/14/19 06:56 O2 Sat by Pulse Oximetry (%) Pertinent Admission Physical Exam Findings: Physical General Appearance: No apparent distress HEENTM: Normocepahalic Respiratory: Lungs Clear, Neck: Supple, Trachea in good position Cardiology: S1, S2 Abdominal: +BS, Soft, Tenderness Musculoskeletal: Full weight bearing, full ROM, steady gait Neurological: Cn 2-12 intact, Motor Strength 5/5 - Treatment Discharge Condition: Discharge condition good (Will go to [facility].. medically stable for discharge.) Hospital Course: Patient attended groups, had 1:1 meetings with his counselor and was adherent to his medication and treatment regimen. He had minor medical problems during his stay that were addressed and resolved. - Medication Discharge Medications: Ambulatory Orders Gabapentin [Neurontin -] 300 mg PO BID #60 capsule 05/14/18 Olanzapine [Zyprexa] 20 mg PO HS 08/31/18 Amlodipine Besylate [Norvasc -] 5 mg PO DAILY 30 Days #30 tablet 02/12/19 Gabapentin [Neurontin -] 300 mg PO TID #90 capsule 02/14/19 Olanzapine [ZyPREXA -] 10 mg PO HS #30 tablet 02/14/19 - Medication-Assisted Treatment (MAT) Medication-Assisted Treatment (MAT): No - Discharge Instructions Diet, activity, other medical instructions: Diet: as tolerated Activity: as tolerated Other medical instructions: Please keep aftercare referral. - Diagnosis (1) Alcohol dependence Status: Chronic (2) Cannabis dependence Status: Chronic (3) Cocaine dependence Status: Chronic Qualifiers: Substance use status: uncomplicated Qualified Code(s): F14.20 - Cocaine dependence, uncomplicated - Follow-up Referral Minutes to complete discharge: 20 - AMA Did Patient Leave Against Medical Advice: No Additional Comments: We were unable to send medications to the pharmacy because Mr. Rothman is restricted by his insurance company to a provider and a pharmacy. Mr. Rothman is aware. Please see counselor notes; many attempts have been made to rectify this situation without success.
--- NOTE | 2019-02-14 13:04 | PN ---
[facility] Progress Note Note: Patient is scheduled for discharge tomorrow. Scripts for 30 days supply of medications(Zyprexa 10 mg/hs, Gabapentin 300 mg/tid) will be electronically transmitted to [facility] at [address] [place] [address]
[2019-02-14] MEDS: THIAMINE HCL 100 MG TABLET (FP) PO SCH (21:34)
[2019-02-14] MEDS: LIDOCAINE PATCH REMOVAL MC SCH (21:34)
[2019-02-14] MEDS: OLANZapine 10 MG TABLET PO SCH (21:34)
[2019-02-14] MEDS: MELATONIN 5 MG TABLETS PO PRN (21:34)
[2019-02-15] MEDS: GABAPENTIN 300 MG CAPSULE (FP) PO SCH (06:24)
[2019-02-15] MEDS: MAG HYDROX/ALH/SMC/DPHA/LIDO 240 ML MOUTHWASH MM SCH (06:24)
[2019-02-15 07:23] VITALS: BP 121/81; PULSE 79; TEMP 97.7
== END 2019-02-15 08:55 | disposition home or self-care (01) | DRG 772 ==
LOC: YASAS 14:07 → Y3W 14:08
PROVIDERS: ADMIT Neuromusculoskeletal Medicine & OMM; ATTEND Neuromusculoskeletal Medicine & OMM
PROC: HZ42ZZZ Group Counseling for Substance Abuse Treatment, Cognitive-Behavioral (ICD-10-PCS; principal; 2019-01-31)
DX: F10.20 Alcohol dependence, uncomplicated (principal); F11.20 Opioid dependence, uncomplicated; F14.20 Cocaine dependence, uncomplicated; F12.20 Cannabis dependence, uncomplicated; F17.210 Nicotine dependence, cigarettes, uncomplicated; F19.282 Other psychoactive substance dependence with psychoactive substance-induced sleep disorder; F19.24 Other psychoactive substance dependence with psychoactive substance-induced mood disorder; F31.9 Bipolar disorder, unspecified; I10 Essential (primary) hypertension; J45.20 Mild intermittent asthma, uncomplicated; M54.40 Lumbago with sciatica, unspecified side; R21 Rash and other nonspecific skin eruption; B00.9 Herpesviral infection, unspecified; R76.11 Nonspecific reaction to tuberculin skin test without active tuberculosis; Z91.018 Allergy to other foods
CPT/HCPCS: 36415; 87389

== ENCOUNTER 2019-03-08 12:48 | Inpatient (IN) | payer OTHER ==
[2019-03-08 13:53] VITALS: BMI 27.3
--- NOTE | 2019-03-08 15:58 | HP ---
COWS - Scale Resting Pulse: 0= [place] 80 or Below Sweatin= Chills/Flushing Restless Observation: 5= Unable to Sit Still Pupil Size: 0= Normal to Room Light Bone or Joint Aches: 2= Severe Diffuse Aches Runny Nose/ Eye Tearin= Runny Nose/Eyes GI Upset > 30mins: 2= Nausea/Diarrhea Tremor Observation: 1= Tremor [place], Not Seen Yawning Observation: 1= 1-2x During Session Anxiety or Irritability: 2=Irritable/Anxious Goose Flesh Skin: 0=Smooth Skin COWS Score: 16 CIWA Score Nausea/Vomitin-No Nausea/No Vomiting Muscle Tremors: 1-None Visible, but [place] Anxiety: 4-Mod. Anxious/Guarded Agitation: 4-Moderately Restless Paroxysmal Sweats: 1-Minimal Palms Moist Orientation: 0-Oriented Tacttile Disturbances: 0-None Auditory Disturbances: 1-Very Mild Visual Disturbances: 3-Moderate Sensitivity Headache: 0-None Present CIWA-Ar Total Score: 14 - Admission Criteria OASAS Guidelines: Admission for Medically Managed Detox: Requires at least one of the followin. CIWA greater than 12 2. Seizures within the past 24 hours 3. Delirium tremens within the past 24 hours 4. Hallucinations within the past 24 hours 5. Acute intervention needed for co occurring medical disorder 6. Acute intervention needed for co occurring psychiatric disorder 7. Severe withdrawal that cannot be handled at a lower level of care (continued vomiting, continued diarrhea, abnormal vital signs) requiring intravenous medication and/or fluids 8. Admitting History and Physical - Primary Care Physician PCP: none - Admission Chief Complaint: detox from heroin, alcohol, cocaine History of Present Illness: Mr. Rohtman is a 49 yo man with a pmhx of HTN and bipolar disorder who presents today with a desire to enter detox for alcohol, and heroin misuse. The patient states he also uses cocaine regularly. The patient was last hospitalized for inpatient rehab at the end of Jan and discharged 02/15/2019. The patient reports that immediately upon leaving rehab he used heroin, cocaine, and alcohol. He states he uses 15 bags/ day, 1g of cocaine/ day, and he drinks 1 pint of vodka per day. Pt last used heroin monday 7bags of heroin and 30mg of methadone which he bought on the street. His last drink was also Monday morning. Pt states he was unable to hot die picker his prescriptions in [place] because he is restricted to [place]. He would like to detox and then go to "[facility] " in [place] for inpatient rehabilitation. - Past Medical History Cardiovascular: Yes: HTN Psych: Yes: Bipolar - Smoking History Smoking history: Current every day smoker Have you smoked in the past 12 months: Yes Aproximately how many cigarettes per day: 20 - Alcohol/Substance Use Hx Alcohol Use: Yes Admission [facility] Allergies/Adverse Reactions: Allergies Allergy/AdvReac Type Severity Reaction Status Date / Time Pork/Porcine Containing Allergy Severe Hives Verified 03/08/19 13:45 Products No Known Drug Allergies Allergy Verified 03/08/19 13:45 NKDA Allergy Uncoded 03/08/19 13:45 - Ebola screening Have you traveled outside of the country in the last 21 days: No (N) Have you had contact with anyone from an Ebola affected area: No Do you have a fever: No - Review of Systems Constitutional: Chills, Diaphoresis, Fever, Unintentional Wgt. Loss (20lb in the last month) EENT: reports: Tearing, Nose Congestion. denies: Throat Pain Respiratory: reports: Cough. denies: Shortness of Breath Cardiac: denies: Chest Pain GI: reports: Diarrhea, Poor Appetite. denies: Constipated, Nausea, Vomiting : denies: Burning Musculoskeletal: reports: Back Pain, Joint Pain, Muscle Pain Integumentary: denies: Flushing, Lumps, Rash Endocrine: reports: Increased Thirst, Unexplained Weight Loss Hematology: denies: Blood Clots, Easy Bleeding, Easy Bruising Psychiatric: reports: Agitated, Anxious, Depressed Other Systems: Reviewed and Negative Patient History - Patient Medical History Hx Anemia: No Hx Asthma: Yes Hx Chronic Obstructive Pulmonary Disease (COPD): No Hx Cancer: No Hx Cardiac Disorders: No Hx Congestive Heart Failure: No Hx Hypertension: Yes Hx Hypercholesterolemia: No Hx Pacemaker: No HX Cerebrovascular Accident: No Hx Seizures: No Hx Dementia: No Hx Diabetes: No Hx Gastrointestinal Disorders: No Hx Liver Disease: No Hx Genitourinary Disorders: No Hx Sexually Transmitted Disorders: No Hx Renal Disease (ESRD): No Hx Thyroid Disease: No Hx Human Immunodeficiency Virus (HIV): No ([facility] 12/06) Hx Hepatitis C: No Hx Depression: Yes Hx Suicide Attempt: Yes Hx Bipolar Disorder: Yes Hx Schizophrenia: No - Patient Surgical History Past Surgical History: Yes Hx Neurologic Surgery: No Hx Cataract Extraction: No Hx Cardiac Surgery: No Hx Lung Surgery: No Hx Breast Surgery: No Hx Breast Biopsy: No Hx Abdominal Surgery: No Hx Appendectomy: No Hx Cholecystectomy: No Hx Genitourinary Surgery: No Hx Section: No Hx Orthopedic Surgery: No Other Surgical History: biopsy right kidney 2 years ago at [facility] was told to be ok Anesthesia Reaction: No - PPD History Results: CXR 07/2018 NEG - Smoking Cessation Smoking history: Current every day smoker Have you smoked in the past 12 months: Yes Aproximately how many cigarettes per day: 20 Hx Chewing Tobacco Use: No Initiated information on smoking cessation: Yes 'Breaking Loose' booklet given: 03/08/19 - Substances abused Heroin Other (specify): sniff Substance route: Inhalation Frequency: Daily Amount used: 15 bags Age of first use: 39 Date of last use: 03/06/19 Cocaine Substance route: Smoking Frequency: Daily Amount used: 1 gram Age of first use: 19 Date of last use: 03/06/19 Alcohol Substance route: Oral Frequency: Daily Amount used: 1/2-1 pint of vodka Age of first use: 19 Date of last use: 03/07/19 Marijuana/Hashish Substance route: Smoking Frequency: Daily Amount used: $20 Age of first use: 16 Date of last use: 03/06/19 Admission Physical Exam BHS - Vital Signs Vital Signs: Vital Signs - 24 hr 03/08/19 13:45 Temperature 98.6 F Pulse Rate 65 Respiratory 18 Rate Blood Pressure 153/93 - Physical General Appearance: Yes: Within Normal Limits, Disheveled, Mild Distress HEENTM: Yes: Within Normal Limits, EOMI, Normocephalic, Normal Voice, KAROL, Pharynx Normal Respiratory: Yes: Within Normal Limits, Chest Non-Tender, Lungs Clear, Normal Breath Sounds Neck: Yes: Within Normal Limits, No masses,lesions,Nodules, Trachea in good position Cardiology: Yes: Within Normal Limits, Regular Rhythm, Regular Rate, S1, S2 Abdominal: Yes: Within Normal Limits, Normal Bowel Sounds, Non Tender, Flat, Soft Back: Yes: Within Normal Limits, Normal Inspection. No: CVA Tenderness Musculoskeletal: Yes: Within Normal Limits, full range of Motion, Gait Steady Extremities: Yes: Within Normal Limits, Normal Capillary Refill, Normal Range of Motion Neurological: Yes: Within Normal Limits, sleeping room cleaner II-XII NML intact, Fully Oriented, Other (no cerebellar signs, FNF normal, pt with slight horizontal nystagmus and mild tremor. No asterixis.) Integumentary: Yes: Within Normal Limits Lymphatic: Yes: Within Normal Limits Breathalyzer - Breathalyzer Breathalyzer: 0 Urine Drug Screen - Test Device Lot number: [id number] Expiration date: 10/17/20 - Control Is test valid?: Yes - Results Drug screen NEGATIVE: No Urine drug screen results: ALESSANDRA-Cocaine, MOP-Opiates, MTD-Methadone Inpatient Rehab Admission - Rehab Decision to Admit Inpatient rehab admission?: No
[2019-03-08] MEDS ORDERED: ACETAMINOPHEN 325 MG TABLET (FP) PO PRN ×2 (16:32)
[2019-03-08] MEDS ORDERED: MAGNESIUM CITRATE 300 ML BOTTLE PO PRN (16:32)
[2019-03-08] MEDS ORDERED: cloNIDine HCL 0.1 MG TABLET PO PRN (16:32)
[2019-03-08] MEDS ORDERED: MAG HYDROX/AL HYDROX/SIMETH 30 ML UNIT-DOSE CUP PO PRN (16:32)
[2019-03-08] MEDS ORDERED: MAGNESIUM HYDROX 2400MG/30ML ORAL SUSPENSION 30 ML CUP PO PRN (16:32)
[2019-03-08] MEDS ORDERED: MELATONIN 5 MG TABLETS PO PRN (16:32)
[2019-03-08] MEDS ORDERED: METHOCARBAMOL 500 MG TABLET PO PRN (16:32)
[2019-03-08] MEDS ORDERED: IBUPROFEN 400 MG TABLET (FP) PO PRN (16:32)
[2019-03-08] MEDS ORDERED: chlordiazePOXIDE HCL 25 MG CAPSULE PO PRN (16:32)
[2019-03-08] MEDS ORDERED: MENTHOL/PHENOL 1 EACH UD MM PRN (16:32)
[2019-03-08] MEDS ORDERED: hydrOXYzine PAMOATE 25 MG CAPSULE (FP) PO PRN (16:32)
[2019-03-08] MEDS ORDERED: BISMUTH SUBSALICYLATE 524 MG/30 ML UD PO PRN (16:32)
--- NOTE | 2019-03-08 16:45 | PN ---
Teaching Attending Note Name of Resident: Chelsea Villa ATTENDING PHYSICIAN STATEMENT I saw and evaluated the patient. I reviewed the resident's note and discussed the case with the resident. I agree with the resident's findings and plan as documented. SUBJECTIVE: Agree with resident subjective findings OBJECTIVE: Agree with resident objective findings ASSESSMENT AND PLAN: Agree with plan to admit to rehabilitation.
[2019-03-08] MEDS ORDERED: METHADONE HCL 10 MG TABLET (FOR DETOX USE ONLY) PO ONE (17:45)
[2019-03-08] MEDS: amLODIPine BESYLATE 5 MG TABLET (FP) PO SCH (18:15)
[2019-03-08] MEDS: chlordiazePOXIDE HCL 25 MG CAPSULE PO SCH ×2 (18:15→22:11)
[2019-03-08] MEDS: GABAPENTIN 300 MG CAPSULE (FP) PO SCH (22:11)
[2019-03-08] MEDS: OLANZapine 10 MG TABLET PO SCH (22:11)
[2019-03-08] MEDS: THIAMINE HCL 100 MG TABLET (FP) PO SCH (22:11)
[2019-03-09] MEDS: chlordiazePOXIDE HCL 25 MG CAPSULE PO SCH ×4 (06:10→22:00)
[2019-03-09] MEDS ORDERED: METHADONE HCL 10 MG TABLET (FOR DETOX USE ONLY) ONE (09:23)
[2019-03-09] MEDS ORDERED: METHADONE HCL 5 MG TABLET (FOR DETOX USE ONLY) ONE (09:23)
[2019-03-09 09:27] LABS: HEMATOCRIT 40.9 % (35.4-49); HEMOGLOBIN 13.7 GM/dL (11.7-16.9); MCH 32.3 pg (25.7-33.7); MCHC 33.5 g/dl (32.0-35.9); MEAN CELL VOLUME 96.4 fl (80-96); MEAN PLT VOLUME 8.5 fl (7.5-11.1); PLATELET COUNT 236 K/MM3 (134-434); RBC 4.24 M/mm3 (4.00-5.60); RDW 13.3 % (11.9-15.9); WHITE BLOOD COUNT 7.5 K/mm3 (4.0-10.0)
[2019-03-09] MEDS ORDERED: METHADONE (DETOX) 20 MG, METHADONE (DETOX) 5 MG PO ONE (10:00)
[2019-03-09 10:13] LABS: ALBUMIN 3.7 g/dl (3.4-5.0); BILIRUBIN,TOTAL 0.3 mg/dL (0.2-1); BLOOD UREA NITROGEN 10.3 mg/dL (7-18); CALCIUM 8.7 mg/dL (8.5-10.1); CREATININE 1.1 mg/dL (0.55-1.3); POTASSIUM 3.7 mmol/L (3.5-5.1); TOT PROT 6.8 g/dl (6.4-8.2)
[2019-03-09] MEDS: PRENATAL VITAMINS W/ FOLIC ACID TABLET (FP) PO SCH (10:21)
[2019-03-09] MEDS: GABAPENTIN 300 MG CAPSULE (FP) PO SCH ×2 (10:22→22:01)
[2019-03-09] MEDS: amLODIPine BESYLATE 5 MG TABLET (FP) PO SCH (10:22)
[2019-03-09] MEDS ORDERED: hydrOXYzine PAMOATE 25 MG CAPSULE (FP) PO PRN (12:59)
--- NOTE | 2019-03-09 13:07 | PN ---
S CIWA - CIWA Score Nausea/Vomitin Muscle Tremors: 4-Moderate,w/Arms Extend Anxiety: 5 Agitation: 0-Normal Activity Paroxysmal Sweats: 1-Minimal Palms Moist Orientation: 0-Oriented Tacttile Disturbances: 0-None Auditory Disturbances: 0-None Visual Disturbances: 0-None Headache: 1-Very Mild CIWA-Ar Total Score: 13 BHS COWS - Scale Resting Pulse: 1= [place] 81-100 Sweatin= Chills/Flushing Restless Observation: 3= Extraneous Movement Pupil Size: 1= Pupils >than Normal Bone or Joint Aches: 2= Severe Diffuse Aches Runny Nose/ Eye Tearin= Runny Nose/Eyes GI Upset > 30mins: 2= Nausea/Diarrhea Tremor Observation of Outstretched Hands: 2= Slight Tremor Visible Yawning Observation: 1= 1-2x During Session Anxiety or Irritability: 4=Extreme Anxiety Goose Flesh Skin: 0=Smooth Skin COWS Score: 19 S Progress Note (SOAP) Subjective: Pt states he feel like he is still in withdrawal from heroin- would like an extra dose of methadone 5mg O: Vital Signs - 24 hr 03/08/19 03/08/19 03/08/19 13:45 18:21 21:00 Temperature 98.6 F 98.2 F 98.2 F Pulse Rate 65 61 90 Respiratory 18 17 18 Rate Blood Pressure 153/93 145/65 132/59 L 03/09/19 03/09/19 03/09/19 00:30 03:30 07:55 Temperature 97.3 F L Pulse Rate 68 Respiratory 18 18 18 Rate Blood Pressure 137/84 03/09/19 03/09/19 09:54 10:00 Temperature 97.5 F L 97.5 F L Pulse Rate 66 66 Respiratory 16 16 Rate Blood Pressure 146/87 146/87 Laboratory Tests 03/09/19 03/09/19 07:40 07:40 WBC 7.5 RBC 4.24 Hgb 13.7 Hct 40.9 MCV 96.4 H MCH 32.3 MCHC 33.5 RDW 13.3 Plt Count 236 MPV 8.5 Sodium 140 Potassium 3.7 Chloride 107 Carbon Dioxide 27 Anion Gap 5 L BUN 10.3 Creatinine 1.1 Est GFR (CKD-EPI)AfAm 91.52 Est GFR (CKD-EPI)NonAf 78.96 Random Glucose 104 Calcium 8.7 Total Bilirubin 0.3 AST 19 ALT 26 Alkaline Phosphatase 110 Total Protein 6.8 Albumin 3.7 a/p: AUD- continue librium detox OUD- on methadone detox. with high COWs- will give methadone 5mg stat and continue with taper on clonidine and vistaril for detox sx d/w pt to talk to counselor re alf MAT
[2019-03-09] MEDS ORDERED: METHADONE HCL 5 MG TABLET PO ONE (13:45)
[2019-03-09] MEDS ORDERED: METHADONE HCL 10 MG TABLET (FOR DETOX USE ONLY) PO ONE (13:45)
[2019-03-09] MEDS: THIAMINE HCL 100 MG TABLET (FP) PO SCH (22:00)
[2019-03-09] MEDS: OLANZapine 10 MG TABLET PO SCH (22:00)
[2019-03-10] MEDS: chlordiazePOXIDE HCL 25 MG CAPSULE PO SCH ×4 (08:31→22:39)
[2019-03-10] MEDS ORDERED: METHADONE HCL 10 MG TABLET (FOR DETOX USE ONLY) PO ONE (10:00)
[2019-03-10] MEDS: amLODIPine BESYLATE 5 MG TABLET (FP) PO SCH (11:41)
[2019-03-10] MEDS: GABAPENTIN 300 MG CAPSULE (FP) PO SCH ×2 (11:41→22:39)
[2019-03-10] MEDS: PRENATAL VITAMINS W/ FOLIC ACID TABLET (FP) PO SCH (11:41)
--- NOTE | 2019-03-10 12:36 | PN ---
S CIWA - CIWA Score Nausea/Vomitin-No Nausea/No Vomiting Muscle Tremors: None Anxiety: 2 Agitation: 0-Normal Activity Paroxysmal Sweats: 3 Orientation: 0-Oriented Tacttile Disturbances: 0-None Auditory Disturbances: 0-None Visual Disturbances: 0-None Headache: 2-Mild CIWA-Ar Total Score: 7 S COWS - Scale Resting Pulse: 1= [place] 81-100 Sweatin= Beads of Sweat on Face Restless Observation: 1= Difficult to Sit Still Pupil Size: 0= Normal to Room Light Bone or Joint Aches: 1= Mild Discomfort Runny Nose/ Eye Tearin= None GI Upset > 30mins: 0= None Tremor Observation of Outstretched Hands: 0= None Yawning Observation: 1= 1-2x During Session Anxiety or Irritability: 2=Irritable/Anxious Goose Flesh Skin: 0=Smooth Skin COWS Score: 9 [facility] Progress Note (SOAP) Subjective: c/o anxiety, headache, sweats, and interrupted sleep. Objective: 03/10/19 12:35 Vital Signs 03/10/19 03/10/19 06:24 10:11 Temperature 97.9 F 96 F L Pulse Rate 67 81 Respiratory 20 16 Rate Blood Pressure 139/62 114/76 Laboratory Last Values WBC 7.5 K/mm3 (4.0-10.0) 03/09/19 07:40 RBC 4.24 M/mm3 (4.00-5.60) 03/09/19 07:40 Hgb 13.7 GM/dL (11.7-16.9) 03/09/19 07:40 Hct 40.9 % (35.4-49) 03/09/19 07:40 MCV 96.4 fl (80-96) H 03/09/19 07:40 MCH 32.3 pg (25.7-33.7) 03/09/19 07:40 MCHC 33.5 g/dl (32.0-35.9) 03/09/19 07:40 RDW 13.3 % (11.9-15.9) 03/09/19 07:40 Plt Count 236 K/MM3 (134-434) 03/09/19 07:40 MPV 8.5 fl (7.5-11.1) 03/09/19 07:40 Sodium 140 mmol/L (136-145) 03/09/19 07:40 Potassium 3.7 mmol/L (3.5-5.1) 03/09/19 07:40 Chloride 107 mmol/L (98-107) 03/09/19 07:40 Carbon Dioxide 27 mmol/L (21-32) 03/09/19 07:40 Anion Gap 5 MMOL/L (8-16) L 03/09/19 07:40 BUN 10.3 mg/dL (7-18) 03/09/19 07:40 Creatinine 1.1 mg/dL (0.55-1.3) 03/09/19 07:40 Est GFR (CKD-EPI)AfAm 91.52 03/09/19 07:40 Est GFR (CKD-EPI)NonAf 78.96 03/09/19 07:40 Random Glucose 104 mg/dL (74-106) 03/09/19 07:40 Calcium 8.7 mg/dL (8.5-10.1) 03/09/19 07:40 Total Bilirubin 0.3 mg/dL (0.2-1) 03/09/19 07:40 AST 19 U/L (15-37) 03/09/19 07:40 ALT 26 U/L (13-61) 03/09/19 07:40 Alkaline Phosphatase 110 U/L (45-117) 03/09/19 07:40 Total Protein 6.8 g/dl (6.4-8.2) 03/09/19 07:40 Albumin 3.7 g/dl (3.4-5.0) 03/09/19 07:40 RPR Titer Nonreactive (NONREACTIVE) 03/09/19 07:40 Labs noted. Assessment: 03/10/19 12:35 AOX3, in no acute respiratory distress. Full ROM, ambulating in the unit. Withdrawal symptoms Plan: continue detox.
--- NOTE | 2019-03-10 14:02 | CONSULT ---
[facility] Psychiatric Consult - Data Date of interview: 02/28/19 Admission source: [facility] Identifying data: Erosion Control Coordinator approached patient this morning for psychiatric consultation. Patient was eating breakfest and stated, "Maybe later i'm eating now." Erosion Control Coordinator then approached patient after lunch while patient was sleeping in bed. Patient's name was called several times but patient did not answer. Patient difficult to awaken. Psychiatric consultation refused.
[2019-03-10] MEDS: THIAMINE HCL 100 MG TABLET (FP) PO SCH (22:39)
[2019-03-10] MEDS: OLANZapine 10 MG TABLET PO SCH (22:39)
[2019-03-11] MEDS ORDERED: chlordiazePOXIDE HCL 10 MG CAPSULE PO PRN
[2019-03-11] MEDS: chlordiazePOXIDE HCL 10 MG CAPSULE PO SCH ×4 (06:19→22:07)
[2019-03-11] MEDS ORDERED: METHADONE HCL 5 MG TABLET (FOR DETOX USE ONLY) ONE (09:10)
[2019-03-11] MEDS ORDERED: METHADONE HCL 10 MG TABLET (FOR DETOX USE ONLY) ONE (09:11)
[2019-03-11] MEDS ORDERED: METHADONE (DETOX) 10 MG, METHADONE (DETOX) 5 MG PO ONE (10:00)
[2019-03-11] MEDS: amLODIPine BESYLATE 5 MG TABLET (FP) PO SCH (10:06)
[2019-03-11] MEDS: PRENATAL VITAMINS W/ FOLIC ACID TABLET (FP) PO SCH (10:06)
[2019-03-11] MEDS: GABAPENTIN 300 MG CAPSULE (FP) PO SCH ×2 (10:06→22:07)
--- NOTE | 2019-03-11 10:29 | PN ---
[facility] CIWA - CIWA Score Nausea/Vomitin-No Nausea/No Vomiting Muscle Tremors: 2 Anxiety: 2 Agitation: 2 Paroxysmal Sweats: 2 Orientation: 0-Oriented Tacttile Disturbances: 0-None Auditory Disturbances: 0-None Visual Disturbances: 0-None Headache: 0-None Present CIWA-Ar Total Score: 8 [facility] COWS - Scale Resting Pulse: 0= [place] 80 or Below Sweatin= Chills/Flushing Restless Observation: 1= Difficult to Sit Still Pupil Size: 0= Normal to Room Light Bone or Joint Aches: 1= Mild Discomfort Runny Nose/ Eye Tearin= Nasal Congestion GI Upset > 30mins: 0= None Tremor Observation of Outstretched Hands: 1= Tremor [place], Not Seen Yawning Observation: 2= >3x During Session Anxiety or Irritability: 1=Feels Anxious/Irritable Goose Flesh Skin: 0=Smooth Skin COWS Score: 8 [facility] Progress Note (SOAP) Subjective: sweats shakes interrupted sleep body aches agitation Objective: 03/11/19 10:28 Vital Signs Temperature 97.7 F 03/11/19 09:22 Pulse Rate 71 03/11/19 09:22 Respiratory Rate 17 03/11/19 09:22 Blood Pressure 133/84 03/11/19 09:22 O2 Sat by Pulse Oximetry (%) Laboratory Tests 03/09/19 03/09/19 03/09/19 07:40 07:40 07:40 WBC 7.5 RBC 4.24 Hgb 13.7 Hct 40.9 MCV 96.4 H MCH 32.3 MCHC 33.5 RDW 13.3 Plt Count 236 MPV 8.5 Sodium 140 Potassium 3.7 Chloride 107 Carbon Dioxide 27 Anion Gap 5 L BUN 10.3 Creatinine 1.1 Est GFR (CKD-EPI)AfAm 91.52 Est GFR (CKD-EPI)NonAf 78.96 Random Glucose 104 Calcium 8.7 Total Bilirubin 0.3 AST 19 ALT 26 Alkaline Phosphatase 110 Total Protein 6.8 Albumin 3.7 RPR Titer Nonreactive aaox3 ambulating no acute distress Assessment: 03/11/19 10:28 withdrawals Plan: continue detox increase fluids
[2019-03-11] MEDS: OLANZapine 10 MG TABLET PO SCH (22:07)
[2019-03-11] MEDS: THIAMINE HCL 100 MG TABLET (FP) PO SCH (22:07)
[2019-03-12] MEDS: chlordiazePOXIDE HCL 10 MG CAPSULE PO SCH ×2 (05:21→17:04)
[2019-03-12] MEDS: GABAPENTIN 300 MG CAPSULE (FP) PO SCH ×2 (09:14→22:15)
[2019-03-12] MEDS: PRENATAL VITAMINS W/ FOLIC ACID TABLET (FP) PO SCH (09:14)
[2019-03-12] MEDS: amLODIPine BESYLATE 5 MG TABLET (FP) PO SCH (09:14)
--- NOTE | 2019-03-12 09:53 | PN ---
[facility] CIWA - CIWA Score Nausea/Vomitin-No Nausea/No Vomiting Muscle Tremors: 2 Anxiety: 1-Mildly Anxious Agitation: 2 Paroxysmal Sweats: 2 Orientation: 0-Oriented Tacttile Disturbances: 0-None Auditory Disturbances: 0-None Visual Disturbances: 0-None Headache: 0-None Present CIWA-Ar Total Score: 7 [facility] COWS - Scale Resting Pulse: 2= [place] 101-120 Sweatin= Chills/Flushing Restless Observation: 1= Difficult to Sit Still Pupil Size: 0= Normal to Room Light Bone or Joint Aches: 0= None Runny Nose/ Eye Tearin= None GI Upset > 30mins: 0= None Tremor Observation of Outstretched Hands: 1= Tremor [place], Not Seen Yawning Observation: 1= 1-2x During Session Anxiety or Irritability: 1=Feels Anxious/Irritable Goose Flesh Skin: 0=Smooth Skin COWS Score: 7 [facility] Progress Note (SOAP) Subjective: sweats chills body aches restless Objective: 03/12/19 09:52 Vital Signs Temperature 98.6 F 03/12/19 09:29 Pulse Rate 112 H 03/12/19 09:29 Respiratory Rate 20 03/12/19 09:29 Blood Pressure 143/86 03/12/19 09:29 O2 Sat by Pulse Oximetry (%) Laboratory Tests 03/09/19 03/09/19 03/09/19 07:40 07:40 07:40 WBC 7.5 RBC 4.24 Hgb 13.7 Hct 40.9 MCV 96.4 H MCH 32.3 MCHC 33.5 RDW 13.3 Plt Count 236 MPV 8.5 Sodium 140 Potassium 3.7 Chloride 107 Carbon Dioxide 27 Anion Gap 5 L BUN 10.3 Creatinine 1.1 Est GFR (CKD-EPI)AfAm 91.52 Est GFR (CKD-EPI)NonAf 78.96 Random Glucose 104 Calcium 8.7 Total Bilirubin 0.3 AST 19 ALT 26 Alkaline Phosphatase 110 Total Protein 6.8 Albumin 3.7 RPR Titer Nonreactive aaox3 ambulating no acute distress Assessment: 03/12/19 09:53 withdrawals Plan: continue detox increase fluids
[2019-03-12] MEDS ORDERED: METHADONE HCL 10 MG TABLET (FOR DETOX USE ONLY) PO ONE (10:00)
[2019-03-12] MEDS: THIAMINE HCL 100 MG TABLET (FP) PO SCH (22:15)
[2019-03-12] MEDS: OLANZapine 10 MG TABLET PO SCH (22:16)
[2019-03-13] MEDS ORDERED: chlordiazePOXIDE HCL 10 MG CAPSULE PO ONE (05:00)
[2019-03-13] MEDS ORDERED: METHADONE HCL 5 MG TABLET (FOR DETOX USE ONLY) PO ONE (06:00)
[2019-03-13] MEDS: GABAPENTIN 300 MG CAPSULE (FP) PO SCH (10:24)
[2019-03-13] MEDS: PRENATAL VITAMINS W/ FOLIC ACID TABLET (FP) PO SCH (10:24)
[2019-03-13] MEDS: amLODIPine BESYLATE 5 MG TABLET (FP) PO SCH (10:24)
--- NOTE | 2019-03-13 11:49 | PN ---
[facility] CIWA - CIWA Score Nausea/Vomitin-No Nausea/No Vomiting Muscle Tremors: 1-None Visible, but [place] Anxiety: 1-Mildly Anxious Agitation: 0-Normal Activity Paroxysmal Sweats: 1-Minimal Palms Moist Orientation: 0-Oriented Tacttile Disturbances: 0-None Auditory Disturbances: 0-None Visual Disturbances: 0-None Headache: 0-None Present CIWA-Ar Total Score: 3 S COWS - Scale Resting Pulse: 1= [place] 81-100 Sweatin= No chills or Flushing Restless Observation: 0= Sits Still Pupil Size: 0= Normal to Room Light Bone or Joint Aches: 1= Mild Discomfort Runny Nose/ Eye Tearin= Nasal Congestion GI Upset > 30mins: 0= None Tremor Observation of Outstretched Hands: 0= None Yawning Observation: 1= 1-2x During Session Anxiety or Irritability: 0= None Goose Flesh Skin: 0=Smooth Skin COWS Score: 4 [facility] Progress Note (SOAP) Subjective: tired sleepy Objective: 03/13/19 11:48 Vital Signs Temperature 97.2 F L 03/13/19 09:23 Pulse Rate 94 H 03/13/19 09:23 Respiratory Rate 18 03/13/19 09:23 Blood Pressure 136/78 03/13/19 09:23 O2 Sat by Pulse Oximetry (%) aaox3 lying down no acute distress Assessment: 03/13/19 11:49 mild withdrawals Plan: d/c in am
[2019-03-13 13:33] VITALS: BP 138/82; PULSE 901; TEMP 97.7
== END 2019-03-13 12:42 | disposition other institution (70) | DRG 773 ==
LOC: YASAS 12:48 → Y6N 17:19
PROVIDERS: ADMIT Allergy & Immunology; ATTEND Allergy & Immunology
PROC: HZ2ZZZZ Detoxification Services for Substance Abuse Treatment (ICD-10-PCS; principal; 2019-03-08)
DX: F11.23 Opioid dependence with withdrawal (principal); F10.230 Alcohol dependence with withdrawal, uncomplicated; F14.20 Cocaine dependence, uncomplicated; F12.20 Cannabis dependence, uncomplicated; F17.210 Nicotine dependence, cigarettes, uncomplicated; F31.9 Bipolar disorder, unspecified; I10 Essential (primary) hypertension; J45.909 Unspecified asthma, uncomplicated; Z91.018 Allergy to other foods; Z91.5 Personal history of self-harm
CPT/HCPCS: 36415; 80053; 85027; 86593

== ENCOUNTER 2019-03-13 12:51 | Inpatient (IN) | payer OTHER ==
[2019-03-13] MEDS ORDERED: hydrOXYzine PAMOATE 25 MG CAPSULE (FP) PO PRN (13:29)
[2019-03-13] MEDS ORDERED: ACETAMINOPHEN 325 MG TABLET (FP) PO PRN (13:29)
[2019-03-13] MEDS ORDERED: P-EPHED 60MG/TRIPROLIDI 2.5MG TABLET PO PRN (13:29)
[2019-03-13] MEDS ORDERED: MAGNESIUM HYDROX 2400MG/30ML ORAL SUSPENSION 30 ML CUP PO PRN (13:29)
[2019-03-13] MEDS ORDERED: MAG HYDROX/AL HYDROX/SIMETH 30 ML UNIT-DOSE CUP PO PRN (13:29)
[2019-03-13] MEDS ORDERED: MENTHOL/PHENOL 1 EACH UD MM PRN (13:29)
[2019-03-13] MEDS ORDERED: guaiFENesin 200 MG/10 ML 10 ML UNIT-DOSE CUPS PO PRN (13:29)
[2019-03-13] MEDS ORDERED: MAGNESIUM CITRATE 300 ML BOTTLE PO PRN (13:29)
[2019-03-13] MEDS ORDERED: LOPERAMIDE HCL 2 MG CAPSULE PO PRN (13:29)
[2019-03-13] MEDS: PETROLATUM, WHITE 30 GM TUBE TP SCH (16:10)
[2019-03-13] MEDS ORDERED: PT OWN MED DRAWER 7, Y5N ONE (17:04)
[2019-03-13] MEDS: THIAMINE HCL 100 MG TABLET (FP) PO SCH (21:47)
[2019-03-14] MEDS: IBUPROFEN 400 MG TABLET (FP) PO PRN (08:56)
[2019-03-14] MEDS: PRENATAL VITAMINS W/ FOLIC ACID TABLET (FP) PO SCH (09:03)
[2019-03-14] MEDS: amLODIPine BESYLATE 5 MG TABLET (FP) PO SCH (09:03)
[2019-03-14] MEDS: PETROLATUM, WHITE 30 GM TUBE TP SCH (10:26)
[2019-03-14] MEDS: THIAMINE HCL 100 MG TABLET (FP) PO SCH (21:18)
[2019-03-15] MEDS: amLODIPine BESYLATE 5 MG TABLET (FP) PO SCH (09:37)
[2019-03-15] MEDS: PRENATAL VITAMINS W/ FOLIC ACID TABLET (FP) PO SCH (09:37)
[2019-03-15] MEDS: IBUPROFEN 400 MG TABLET (FP) PO PRN (09:38)
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
[2019-03-15] MEDS: PETROLATUM, WHITE 30 GM TUBE TP SCH (10:27)
[2019-03-15 14:46] LABS: PH,URINE >= 9.0 (5.0-8.0); URINE APPEARANCE CLEAR; URINE BILIRUBIN NEGATIVE (NEGATIVE); URINE COLOR YELLOW; URINE GLUCOSE (UA) NEGATIVE (NEGATIVE); URINE KETONE NEGATIVE (NEGATIVE); URINE LEUK ESTERASE NEGATIVE (NEGATIVE); URINE NITRITE NEGATIVE (NEGATIVE); URINE PROTEIN NEGATIVE (NEGATIVE); URINE UROBILINOGEN 0.2 mg/dL (0.2-1.0)
[2019-03-15] MEDS: THIAMINE HCL 100 MG TABLET (FP) PO SCH (21:05)
[2019-03-15] MEDS: GABAPENTIN 300 MG CAPSULE (FP) PO SCH (21:05)
[2019-03-15] MEDS: OLANZapine 10 MG TABLET PO SCH (21:05)
[2019-03-16] MEDS: GABAPENTIN 300 MG CAPSULE (FP) PO SCH ×2 (09:37→21:05)
[2019-03-16] MEDS: PRENATAL VITAMINS W/ FOLIC ACID TABLET (FP) PO SCH (09:37)
[2019-03-16] MEDS: amLODIPine BESYLATE 5 MG TABLET (FP) PO SCH (09:37)
[2019-03-16] MEDS: PETROLATUM, WHITE 30 GM TUBE TP SCH (10:03)
[2019-03-16] MEDS: THIAMINE HCL 100 MG TABLET (FP) PO SCH (21:05)
[2019-03-16] MEDS: OLANZapine 10 MG TABLET PO SCH (21:05)
[2019-03-16] MEDS: MELATONIN 5 MG TABLETS PO PRN (21:05)
[2019-03-17] MEDS: GABAPENTIN 300 MG CAPSULE (FP) PO SCH ×2 (09:45→21:40)
[2019-03-17] MEDS: amLODIPine BESYLATE 5 MG TABLET (FP) PO SCH (09:45)
[2019-03-17] MEDS: PRENATAL VITAMINS W/ FOLIC ACID TABLET (FP) PO SCH (09:45)
[2019-03-17] MEDS: PETROLATUM, WHITE 30 GM TUBE TP SCH (09:45)
[2019-03-17] MEDS: OLANZapine 10 MG TABLET PO SCH (21:39)
[2019-03-17] MEDS: THIAMINE HCL 100 MG TABLET (FP) PO SCH (21:39)
[2019-03-17] MEDS: MELATONIN 5 MG TABLETS PO PRN (21:39)
[2019-03-18 07:15] VITALS: TEMP 97.9
[2019-03-18] MEDS: PRENATAL VITAMINS W/ FOLIC ACID TABLET (FP) PO SCH (09:59)
[2019-03-18] MEDS: GABAPENTIN 300 MG CAPSULE (FP) PO SCH (09:59)
[2019-03-18] MEDS: amLODIPine BESYLATE 5 MG TABLET (FP) PO SCH (09:59)
[2019-03-18] MEDS: PETROLATUM, WHITE 30 GM TUBE TP SCH (10:00)
[2019-03-18 10:04] VITALS: BP 133/72; PULSE 91
--- NOTE | 2019-03-18 12:40 | DS ---
[facility] Rehab Discharge Summary - [facility] Rehab Discharge Summary Admission Date: 03/13/19 Discharge Date: 03/18/19 - History Present History: Alcohol dependence, Cocaine dependence, Opioid dependence Pertinent Past History: delicia Rothman is a 49 yo man with a pmhx of HTN, bipolar disorder, alcohol, and heroin misuse. The patient states he also uses cocaine regularly. The patient was last hospitalized for inpatient rehab at the end of Jan and discharged 02/15. The patient reports that immediately upon leaving rehab he used heroin, cocaine, and alcohol. He states he uses 15 bags/ day, 1g of cocaine/ day, and he drinks 1 pint of vodka per day. Pt last used heroin monday 7bags of heroin and 30mg of methadone which he bought on the street. - Discharge Physical Exam Vital Signs: Vital Signs Temperature 97.9 F 03/18/19 07:14 Pulse Rate 91 H 03/18/19 09:30 Respiratory Rate 18 03/18/19 09:30 Blood Pressure 133/72 03/18/19 09:30 O2 Sat by Pulse Oximetry (%) Pertinent Admission Physical Exam Findings: General Appearance: No apparent distress HEENTM: Normocephalic, [place], Respiratory:Lungs Clear, Neck: Yes: Within Normal Limits, No masses,lesions,Nodules, Trachea in good position Cardiology: S1, S2 Abdominal: +Bowel Sounds, Non Tender, Flat, Soft Musculoskeletal: full range of Motion, Gait Steady Neurological: director data management II-XII NML intact, - Treatment Discharge Condition: Outpatient referral accepted (Medically stable for discharge.Patient will returne to [facility] Hospital Course: Patient attended groups, had 1:1 with his counselor, was seen by psychiatric service. He had not acute or urgent medical problems while in rehab. He was adherent to his medication regimen and treatment plan. - Medication Discharge Medications: Ambulatory Orders Gabapentin [Neurontin -] 300 mg PO BID #60 capsule 05/14/18 Amlodipine Besylate [Norvasc -] 5 mg PO DAILY 30 Days #30 tablet 02/12/19 Olanzapine [ZyPREXA -] 10 mg PO HS #30 tablet 02/14/19 - Medication-Assisted Treatment (MAT) Medication-Assisted Treatment (MAT): No - Discharge Instructions Diet, activity, other medical instructions: Diet: as tolerated Activity: as tolerated Other medical instructions: Please follow up with aftercare referral and PCP. - Diagnosis (1) Opioid dependence Current Visit: Yes Status: Acute (2) Substance induced mood disorder Current Visit: Yes Status: Chronic (3) Cocaine dependence Current Visit: Yes Status: Chronic Qualifiers: Substance use status: uncomplicated Qualified Code(s): F14.20 - Cocaine dependence, uncomplicated - Follow-up Referral Minutes to complete discharge: 20 - AMA Did Patient Leave Against Medical Advice: No Additional Comments: Unable to transmit prescriptions for home medications to pharmacy because [place] Patient is aware. SW has been unable to resolve this issue.
== END 2019-03-18 13:05 | disposition home or self-care (01) | DRG 772 ==
LOC: YASAS 12:51 → Y3W 12:53
PROVIDERS: ADMIT Neuromusculoskeletal Medicine & OMM; ATTEND Neuromusculoskeletal Medicine & OMM
PROC: HZ42ZZZ Group Counseling for Substance Abuse Treatment, Cognitive-Behavioral (ICD-10-PCS; principal; 2019-03-13)
DX: F11.20 Opioid dependence, uncomplicated (principal); F14.20 Cocaine dependence, uncomplicated; F19.24 Other psychoactive substance dependence with psychoactive substance-induced mood disorder; F39 Unspecified mood [affective] disorder; I10 Essential (primary) hypertension; J45.909 Unspecified asthma, uncomplicated; Z91.018 Allergy to other foods
CPT/HCPCS: 81003

== ENCOUNTER 2019-05-13 13:30 | Inpatient (IN) | payer OTHER ==
--- NOTE | 2019-05-13 13:59 | BHS.RME ---
Substance Use & Tx History - Substance Use History Opiates (Heroin) Substance amount: 1 bundle Frequency of use: Daily Substance route: Inhalation (ex: sniffing or snorting) Date of Last Use: 05/11/19 Alcohol Substance amount: 1/2 pint Vodka Frequency of use: Daily Date of Last Use: 05/11/19 Cocaine (Powder) Substance amount: 1 gram Frequency of use: Daily Date of Last Use: 05/11/19 Physical/Psych/Mental Status - Behavior Eye Contact: Normal - Cooperativeness Cooperativeness: Cooperative - Thinking Thought Processes: Loosened Thought content: Future oriented - Physical Health Problems Is patient presently having any pain?: No Does patient presently have any injuries (include location): No Does patient currently have a fever: No COWS - Scale Resting Pulse: 1= [place] 81-100 Sweatin= Chills/Flushing Restless Observation: 1= Difficult to Sit Still Pupil Size: 0= Normal to Room Light Bone or Joint Aches: 1= Mild Discomfort Runny Nose/ Eye Tearin= Runny Nose/Eyes GI Upset > 30mins: 0= None Tremor Observation: 1= Tremor [place], Not Seen Yawning Observation: 0= None Anxiety or Irritability: 2=Irritable/Anxious Goose Flesh Skin: 0=Smooth Skin COWS Score: 9 CIWA Nausea/Vomitin-No Nausea/No Vomiting Muscle Tremors: 1-None Visible, but [place] Anxiety: 2 Agitation: 0-Normal Activity Paroxysmal Sweats: No Perspiration Orientation: 0-Oriented Tacttile Disturbances: 0-None Auditory Disturbances: 0-None Visual Disturbances: 2-Mild Sensitivity Headache: 0-None Present CIWA-Ar Total Score: 5
[2019-05-13 15:03] VITALS: BMI 26.5
--- NOTE | 2019-05-13 15:40 | HP ---
COWS - Scale Resting Pulse: 1= [place] 81-100 Sweatin= Chills/Flushing Restless Observation: 1= Difficult to Sit Still Pupil Size: 0= Normal to Room Light Bone or Joint Aches: 1= Mild Discomfort Runny Nose/ Eye Tearin= Runny Nose/Eyes GI Upset > 30mins: 0= None Tremor Observation: 1= Tremor [place], Not Seen Yawning Observation: 0= None Anxiety or Irritability: 2=Irritable/Anxious Goose Flesh Skin: 0=Smooth Skin COWS Score: 9 CIWA Score Nausea/Vomitin-No Nausea/No Vomiting Muscle Tremors: 1-None Visible, but [place] Anxiety: 2 Agitation: 0-Normal Activity Paroxysmal Sweats: No Perspiration Orientation: 0-Oriented Tacttile Disturbances: 0-None Auditory Disturbances: 0-None Visual Disturbances: 2-Mild Sensitivity Headache: 0-None Present CIWA-Ar Total Score: 5 - Admission Criteria [facility]ASAS Guidelines: Admission for Medically Managed Detox: Requires at least one of the followin. CIWA greater than 12 2. Seizures within the past 24 hours 3. Delirium tremens within the past 24 hours 4. Hallucinations within the past 24 hours 5. Acute intervention needed for co occurring medical disorder 6. Acute intervention needed for co occurring psychiatric disorder 7. Severe withdrawal that cannot be handled at a lower level of care (continued vomiting, continued diarrhea, abnormal vital signs) requiring intravenous medication and/or fluids 8. Admitting History and Physical - Admission Chief Complaint: Mr. Rothman is a 49 yo man who presents to [facility] requesting "detox from heroin and alcohol". He as last here for detox and Rehab in February. He states he was abstinent for one month then relapsed. PMH: HTN on Norvasc, no meds in 2 days. Psych: bipolar. Surgery: cyst on kidney. Substance use history. heroin: 1 bundle dialy, sniffs, first use 10 y ago, last use 2 days ago. Has had several overdoses, last one one year ago. uses street methadone. Alcohol: 1/2 pint Vodka daily, no black outs or seizures, first use age 26y, lst use 2 days ago. No Black outs/seizures. Cocaine: 1 gram daily, smokes, first use age 26y, last use 2 days ago. Nicotine: 1ppd, first use age 18y, last use 2 days ago. Meets detox criteria: comorbid psychiatric disease, high risk of relapse. History Source: Patient Limitations to Obtaining History: No Limitations - Past Medical History Cardiovascular: Yes: HTN Psych: Yes: Bipolar - Smoking History Smoking history: Current every day smoker Have you smoked in the past 12 months: Yes Aproximately how many cigarettes per day: 20 - Alcohol/Substance Use Hx Alcohol Use: Yes Admission ROS BHS - HPI Allergies/Adverse Reactions: Allergies Allergy/AdvReac Type Severity Reaction Status Date / Time Pork/Porcine Containing Allergy Severe Hives Verified 05/13/19 14:58 Products No Known Drug Allergies Allergy Verified 05/13/19 14:58 NKDA Allergy Uncoded 05/13/19 14:58 Exam Limitations: No Limitations - Ebola screening Have you traveled outside of the country in the last 21 days: No Have you had contact with anyone from an Ebola affected area: No Have you been sick,other than usual withdrawal symptoms: No Do you have a fever: No - Review of Systems Constitutional: No Symptoms Reported EENT: reports: No Symptoms Reported Respiratory: reports: No Symptoms reported Cardiac: reports: No Symptoms Reported GI: reports: No Symptoms Reported : reports: Other (slow emptying of bladder) Musculoskeletal: reports: Back Pain Integumentary: reports: No Symptoms Reported Neuro: reports: No Symptoms reported Endocrine: reports: No Symptoms Reported Hematology: reports: No Symptoms Reported Psychiatric: reports: Anxious Patient History - Patient Medical History Hx Anemia: No Hx Asthma: No Hx Chronic Obstructive Pulmonary Disease (COPD): No Hx Cancer: No Hx Cardiac Disorders: No Hx Congestive Heart Failure: No Hx Hypertension: Yes (on Norvasc) Hx Hypercholesterolemia: No Hx Pacemaker: No HX Cerebrovascular Accident: No Hx Seizures: No Hx Dementia: No Hx Diabetes: No Hx Gastrointestinal Disorders: No Hx Liver Disease: No Hx Genitourinary Disorders: No Hx Sexually Transmitted Disorders: No Hx Renal Disease (ESRD): No Hx Thyroid Disease: No Hx Human Immunodeficiency Virus (HIV): No ([facility] 12/06) Hx Hepatitis C: No Hx Depression: No Hx Suicide Attempt: No Hx Bipolar Disorder: Yes (on Zyprexa and gabapentin) Hx Schizophrenia: No - Patient Surgical History Past Surgical History: Yes Hx Neurologic Surgery: No Hx Cataract Extraction: No Hx Cardiac Surgery: No Hx Lung Surgery: No Hx Breast Surgery: No Hx Breast Biopsy: No Hx Abdominal Surgery: No Hx Appendectomy: No Hx Cholecystectomy: No Hx Genitourinary Surgery: No Hx Section: No Hx Orthopedic Surgery: No Other Surgical History: biopsy right kidney 2 years ago at [facility] was told to be ok Anesthesia Reaction: No - PPD History Documented Results: Negative w/proof Results: CXR 07/2018 NEG - Smoking Cessation Smoking history: Current every day smoker Have you smoked in the past 12 months: Yes Aproximately how many cigarettes per day: 20 Cigars Per Day: 0 Hx Chewing Tobacco Use: No Initiated information on smoking cessation: Yes 'Breaking Loose' booklet given: 05/13/19 - Substances abused Alcohol Substance route: Oral Frequency: Daily Amount used: 1/2 -1 pint of vodka Age of first use: 26 Date of last use: 05/11/19 Heroin Substance route: Inhalation Frequency: Daily Amount used: 1 bundle Age of first use: 36 Date of last use: 05/11/19 Cocaine Substance route: Smoking Frequency: Daily Amount used: 1 gram Age of first use: 26 Date of last use: 05/11/19 Marijuana/Hashish Substance route: Smoking Frequency: 3-6 times per week Amount used: 1 blunt Age of first use: 16 Date of last use: 04/20/19 Admission Physical Exam BHS - Vital Signs Vital Signs: Vital Signs - 24 hr 05/13/19 14:59 Temperature 97.9 F Pulse Rate 93 H Respiratory 18 Rate Blood Pressure 147/90 - Physical General Appearance: Yes: Within Normal Limits HEENTM: Yes: Within Normal Limits Respiratory: Yes: Lungs Clear, Normal Breath Sounds Neck: Yes: Within Normal Limits Breast: Yes: Breast Exam Deferred Cardiology: Yes: S1, S2, Tachycardia Abdominal: Yes: Normal Bowel Sounds, Non Tender, Soft, Protuberent Genitourinary: Yes: Other (deferred) Back: Yes: Normal Inspection Musculoskeletal: Yes: Within Normal Limits Extremities: Yes: Within Normal Limits Neurological: Yes: Alert, Normal Response Integumentary: Yes: Within Normal Limits Lymphatic: Yes: Within Normal Limits - Diagnostic (1) Alcohol dependence with uncomplicated withdrawal Current Visit: Yes Status: Acute (2) HTN (hypertension) Current Visit: Yes Status: Acute (3) Nicotine dependence Current Visit: Yes Status: Acute Qualifiers: Nicotine product type: cigarettes Substance use status: uncomplicated Qualified Code(s): F17.210 - Nicotine dependence, cigarettes, uncomplicated (4) Opioid dependence Current Visit: Yes Status: Acute (5) Bipolar disorder Current Visit: No Status: Chronic (6) Cannabis dependence Current Visit: No Status: Chronic Cleared for Admission [facility] - Detox or Rehab [facility] Level of Care: Medically Managed Detox Regimen/Protocol: Methadone/Librium Breathalyzer - Breathalyzer Breathalyzer: 0 Urine Drug Screen - Test Device Lot number: [id number] Expiration date: 02/16/21 - Control Is test valid?: Yes - Results Drug screen NEGATIVE: No Urine drug screen results: ALESSANDRA-Cocaine, MOP-Opiates Inpatient Rehab Admission - Rehab Decision to Admit Inpatient rehab admission?: No
[2019-05-13] MEDS ORDERED: ACETAMINOPHEN 325 MG TABLET (FP) PO PRN ×2 (15:49)
[2019-05-13] MEDS ORDERED: MAGNESIUM HYDROX 2400MG/30ML ORAL SUSPENSION 30 ML CUP PO PRN (15:49)
[2019-05-13] MEDS ORDERED: METHOCARBAMOL 500 MG TABLET PO PRN (15:49)
[2019-05-13] MEDS ORDERED: cloNIDine HCL 0.1 MG TABLET PO PRN (15:49)
[2019-05-13] MEDS ORDERED: IBUPROFEN 400 MG TABLET (FP) PO PRN (15:49)
[2019-05-13] MEDS ORDERED: MAGNESIUM CITRATE 300 ML BOTTLE PO PRN (15:49)
[2019-05-13] MEDS ORDERED: chlordiazePOXIDE HCL 25 MG CAPSULE PO PRN (15:49)
[2019-05-13] MEDS ORDERED: BISMUTH SUBSALICYLATE 524 MG/30 ML UD PO PRN (15:49)
[2019-05-13] MEDS ORDERED: MENTHOL/PHENOL 1 EACH UD MM PRN (15:49)
[2019-05-13] MEDS ORDERED: MAG HYDROX/AL HYDROX/SIMETH 30 ML UNIT-DOSE CUP PO PRN (15:49)
[2019-05-13] MEDS ORDERED: MELATONIN 5 MG TABLETS PO PRN (15:49)
[2019-05-13] MEDS ORDERED: hydrOXYzine PAMOATE 25 MG CAPSULE (FP) PO PRN (15:49)
[2019-05-13] MEDS ORDERED: METHADONE HCL 10 MG TABLET (FOR DETOX USE ONLY) PO ONE (17:00)
[2019-05-13] MEDS: amLODIPine BESYLATE 5 MG TABLET (FP) PO SCH (17:24)
[2019-05-13] MEDS: chlordiazePOXIDE HCL 25 MG CAPSULE PO SCH ×2 (17:24→22:22)
[2019-05-13] MEDS: NICOTINE 21 MG/24 HOURS TOPICAL PATCH TD SCH (17:28)
[2019-05-13] MEDS: THIAMINE HCL 100 MG TABLET (FP) PO SCH (22:22)
[2019-05-14] MEDS: chlordiazePOXIDE HCL 25 MG CAPSULE PO SCH ×4 (05:16→22:07)
[2019-05-14] MEDS ORDERED: METHADONE HCL 10 MG TABLET (FOR DETOX USE ONLY) ONE (09:06)
[2019-05-14] MEDS ORDERED: METHADONE HCL 5 MG TABLET (FOR DETOX USE ONLY) ONE (09:06)
--- NOTE | 2019-05-14 09:42 | EKG ---
Test Reason : Blood Pressure : / mmHG Vent. Rate : 063 BPM Atrial Rate : 063 BPM P-R Int : 152 ms QRS Dur : 090 ms QT Int : 436 ms P-R-T Axes : 080 083 083 degrees QTc Int : 446 ms NORMAL SINUS RHYTHM WITH SINUS ARRHYTHMIA NORMAL ECG WHEN COMPARED WITH ECG OF 04-JAN-2018 00:20, NO SIGNIFICANT CHANGE WAS FOUND Confirmed by Vasile Bauman MD ([id number]) on 05/14/2019 9:42:27 AM Referred By: Confirmed By:Vasile Bauman MD
[2019-05-14] MEDS ORDERED: METHADONE (DETOX) 20 MG, METHADONE (DETOX) 5 MG PO ONE (10:00)
[2019-05-14 10:05] LABS: HEMATOCRIT 41.1 % (35.4-49); MCH 32.4 pg (25.7-33.7); MCHC 34.1 g/dl (32.0-35.9); MEAN PLT VOLUME 8.3 fl (7.5-11.1); PLATELET COUNT 223 K/MM3 (134-434); RBC 4.33 M/mm3 (4.00-5.60); RDW 13.1 % (11.9-15.9); WHITE BLOOD COUNT 8.3 K/mm3 (4.0-10.0)
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
[2019-05-14 10:14] LABS: ALBUMIN 3.4 g/dl (3.4-5.0); BILIRUBIN,TOTAL 0.3 mg/dL (0.2-1); BLOOD UREA NITROGEN 10.3 mg/dL (7-18); CALCIUM 8.8 mg/dL (8.5-10.1); CREATININE 1.1 mg/dL (0.55-1.3); POTASSIUM 3.8 mmol/L (3.5-5.1); TOT PROT 6.9 g/dl (6.4-8.2)
[2019-05-14] MEDS: NICOTINE 21 MG/24 HOURS TOPICAL PATCH TD SCH (10:35)
[2019-05-14] MEDS: GABAPENTIN 300 MG CAPSULE PO SCH ×2 (10:35→22:07)
[2019-05-14] MEDS: PRENATAL VITAMINS W/ FOLIC ACID TABLET (FP) PO SCH (10:35)
[2019-05-14] MEDS: amLODIPine BESYLATE 5 MG TABLET (FP) PO SCH (10:35)
--- NOTE | 2019-05-14 11:29 | PN ---
S CIWA - CIWA Score Nausea/Vomitin-Mild Nausea/No Vomiting Muscle Tremors: 2 Anxiety: 2 Agitation: 2 Paroxysmal Sweats: No Perspiration Orientation: 0-Oriented Tacttile Disturbances: 1-Very Mild Itch/Numbness Auditory Disturbances: 0-None Visual Disturbances: 0-None Headache: 2-Mild CIWA-Ar Total Score: 10 BHS COWS - Scale Resting Pulse: 1= [place] 81-100 Sweatin= No chills or Flushing Restless Observation: 1= Difficult to Sit Still Pupil Size: 1= Pupils >than Normal Bone or Joint Aches: 1= Mild Discomfort Runny Nose/ Eye Tearin= Nasal Congestion GI Upset > 30mins: 1= Stomach Cramp Tremor Observation of Outstretched Hands: 2= Slight Tremor Visible Yawning Observation: 1= 1-2x During Session Anxiety or Irritability: 2=Irritable/Anxious Goose Flesh Skin: 0=Smooth Skin COWS Score: 11 S Progress Note (SOAP) Subjective: alert,irritable,anxious,interrupted sleep,tremor,pain in the body and back Objective: 05/14/19 11:26 Vital Signs Temperature 98.1 F 05/14/19 08:57 Pulse Rate 84 05/14/19 08:57 Respiratory Rate 18 05/14/19 08:57 Blood Pressure 142/88 05/14/19 08:57 O2 Sat by Pulse Oximetry (%) Laboratory Last Values WBC 8.3 K/mm3 (4.0-10.0) 05/14/19 07:30 RBC 4.33 M/mm3 (4.00-5.60) 05/14/19 07:30 Hgb 14.0 GM/dL (11.7-16.9) 05/14/19 07:30 Hct 41.1 % (35.4-49) 05/14/19 07:30 MCV 95.0 fl (80-96) 05/14/19 07:30 MCH 32.4 pg (25.7-33.7) 05/14/19 07:30 MCHC 34.1 g/dl (32.0-35.9) 05/14/19 07:30 RDW 13.1 % (11.9-15.9) 05/14/19 07:30 Plt Count 223 K/MM3 (134-434) 05/14/19 07:30 MPV 8.3 fl (7.5-11.1) 05/14/19 07:30 Sodium 140 mmol/L (136-145) 05/14/19 07:30 Potassium 3.8 mmol/L (3.5-5.1) 05/14/19 07:30 Chloride 107 mmol/L (98-107) 05/14/19 07:30 Carbon Dioxide 26 mmol/L (21-32) 05/14/19 07:30 Anion Gap 6 MMOL/L (8-16) L 05/14/19 07:30 BUN 10.3 mg/dL (7-18) 05/14/19 07:30 Creatinine 1.1 mg/dL (0.55-1.3) 05/14/19 07:30 Est GFR (CKD-EPI)AfAm 91.52 05/14/19 07:30 Est GFR (CKD-EPI)NonAf 78.96 05/14/19 07:30 Random Glucose 92 mg/dL (74-106) 05/14/19 07:30 Calcium 8.8 mg/dL (8.5-10.1) 05/14/19 07:30 Total Bilirubin 0.3 mg/dL (0.2-1) 05/14/19 07:30 AST 11 U/L (15-37) L 05/14/19 07:30 ALT 19 U/L (13-61) 05/14/19 07:30 Alkaline Phosphatase 116 U/L (45-117) 05/14/19 07:30 Total Protein 6.9 g/dl (6.4-8.2) 05/14/19 07:30 Albumin 3.4 g/dl (3.4-5.0) 05/14/19 07:30 RPR Titer Nonreactive (NONREACTIVE) 05/14/19 07:30 HIV 1&2 Antibody Screen Negative 05/14/19 07:30 HIV P24 Antigen Negative 05/14/19 07:30 Assessment: 05/14/19 11:27 withdrawal symptom Plan: continue detox methadone and librium regimen,poker in consultation for nutrition evaluation
[2019-05-14] MEDS: THIAMINE HCL 100 MG TABLET (FP) PO SCH (22:07)
[2019-05-14] MEDS: OLANZapine 10 MG TABLET PO SCH (22:07)
[2019-05-15] MEDS: chlordiazePOXIDE HCL 25 MG CAPSULE PO SCH ×4 (05:58→22:47)
[2019-05-15] MEDS ORDERED: METHADONE HCL 10 MG TABLET (FOR DETOX USE ONLY) PO ONE (10:00)
[2019-05-15] MEDS: GABAPENTIN 300 MG CAPSULE PO SCH ×2 (10:25→22:47)
[2019-05-15] MEDS: amLODIPine BESYLATE 5 MG TABLET (FP) PO SCH (10:25)
[2019-05-15] MEDS: NICOTINE 21 MG/24 HOURS TOPICAL PATCH TD SCH (10:25)
[2019-05-15] MEDS: PRENATAL VITAMINS W/ FOLIC ACID TABLET (FP) PO SCH (10:25)
--- NOTE | 2019-05-15 10:36 | PN ---
S CIWA - CIWA Score Nausea/Vomitin-Mild Nausea/No Vomiting Muscle Tremors: 2 Anxiety: 2 Agitation: 2 Paroxysmal Sweats: No Perspiration Orientation: 0-Oriented Tacttile Disturbances: 0-None Auditory Disturbances: 0-None Visual Disturbances: 0-None Headache: 1-Very Mild CIWA-Ar Total Score: 8 BHS COWS - Scale Resting Pulse: 0= [place] 80 or Below Sweatin= No chills or Flushing Restless Observation: 1= Difficult to Sit Still Pupil Size: 1= Pupils >than Normal Bone or Joint Aches: 1= Mild Discomfort Runny Nose/ Eye Tearin= Nasal Congestion GI Upset > 30mins: 1= Stomach Cramp Tremor Observation of Outstretched Hands: 1= Tremor [place], Not Seen Yawning Observation: 1= 1-2x During Session Anxiety or Irritability: 2=Irritable/Anxious Goose Flesh Skin: 0=Smooth Skin COWS Score: 9 S Progress Note (SOAP) Subjective: alert,irritable,anxious,interrupted sleep,pain in the body and back Objective: 05/15/19 10:46 Vital Signs Temperature 97.3 F L 05/15/19 08:50 Pulse Rate 65 05/15/19 08:50 Respiratory Rate 18 05/15/19 08:50 Blood Pressure 143/89 05/15/19 08:50 O2 Sat by Pulse Oximetry (%) 05/15/19 10:46 Laboratory Last Values WBC 8.3 K/mm3 (4.0-10.0) 05/14/19 07:30 RBC 4.33 M/mm3 (4.00-5.60) 05/14/19 07:30 Hgb 14.0 GM/dL (11.7-16.9) 05/14/19 07:30 Hct 41.1 % (35.4-49) 05/14/19 07:30 MCV 95.0 fl (80-96) 05/14/19 07:30 MCH 32.4 pg (25.7-33.7) 05/14/19 07:30 MCHC 34.1 g/dl (32.0-35.9) 05/14/19 07:30 RDW 13.1 % (11.9-15.9) 05/14/19 07:30 Plt Count 223 K/MM3 (134-434) 05/14/19 07:30 MPV 8.3 fl (7.5-11.1) 05/14/19 07:30 Sodium 140 mmol/L (136-145) 05/14/19 07:30 Potassium 3.8 mmol/L (3.5-5.1) 05/14/19 07:30 Chloride 107 mmol/L (98-107) 05/14/19 07:30 Carbon Dioxide 26 mmol/L (21-32) 05/14/19 07:30 Anion Gap 6 MMOL/L (8-16) L 05/14/19 07:30 BUN 10.3 mg/dL (7-18) 05/14/19 07:30 Creatinine 1.1 mg/dL (0.55-1.3) 05/14/19 07:30 Est GFR (CKD-EPI)AfAm 91.52 05/14/19 07:30 Est GFR (CKD-EPI)NonAf 78.96 05/14/19 07:30 Random Glucose 92 mg/dL (74-106) 05/14/19 07:30 Calcium 8.8 mg/dL (8.5-10.1) 05/14/19 07:30 Total Bilirubin 0.3 mg/dL (0.2-1) 05/14/19 07:30 AST 11 U/L (15-37) L 05/14/19 07:30 ALT 19 U/L (13-61) 05/14/19 07:30 Alkaline Phosphatase 116 U/L (45-117) 05/14/19 07:30 Total Protein 6.9 g/dl (6.4-8.2) 05/14/19 07:30 Albumin 3.4 g/dl (3.4-5.0) 05/14/19 07:30 RPR Titer Nonreactive (NONREACTIVE) 05/14/19 07:30 HIV 1&2 Antibody Screen Negative 05/14/19 07:30 HIV P24 Antigen Negative 05/14/19 07:30 Assessment: 05/15/19 10:46 withdrawal symptom Plan: continue detox methadone and librium regimen
[2019-05-15] MEDS: OLANZapine 10 MG TABLET PO SCH (22:48)
[2019-05-15] MEDS: THIAMINE HCL 100 MG TABLET (FP) PO SCH (22:48)
[2019-05-16] MEDS ORDERED: chlordiazePOXIDE HCL 10 MG CAPSULE PO PRN
[2019-05-16] MEDS: chlordiazePOXIDE HCL 10 MG CAPSULE PO SCH ×4 (06:26→21:59)
[2019-05-16] MEDS ORDERED: METHADONE HCL 5 MG TABLET (FOR DETOX USE ONLY) ONE ×2 (09:13→10:53)
[2019-05-16] MEDS ORDERED: METHADONE HCL 10 MG TABLET (FOR DETOX USE ONLY) ONE ×2 (09:13→10:53)
--- NOTE | 2019-05-16 09:21 | PN ---
S CIWA - CIWA Score Nausea/Vomitin-Mild Nausea/No Vomiting Muscle Tremors: 1-None Visible, but [place] Anxiety: 2 Agitation: 2 Paroxysmal Sweats: No Perspiration Orientation: 0-Oriented Tacttile Disturbances: 1-Very Mild Itch/Numbness Auditory Disturbances: 0-None Visual Disturbances: 0-None Headache: 1-Very Mild CIWA-Ar Total Score: 8 BHS Progress Note (SOAP) Subjective: alert,irritable,anxious,interrupted sleep pain in the body Objective: 05/16/19 09:20 Vital Signs Temperature 97.7 F 05/16/19 05:22 Pulse Rate 76 05/16/19 05:22 Respiratory Rate 19 05/16/19 05:22 Blood Pressure 135/78 05/16/19 05:22 O2 Sat by Pulse Oximetry (%) Assessment: 05/16/19 09:20 withdrawal symptom Plan: continue detox librium regimen
[2019-05-16] MEDS ORDERED: METHADONE (DETOX) 10 MG, METHADONE (DETOX) 5 MG PO ONE (10:00)
[2019-05-16] MEDS: GABAPENTIN 300 MG CAPSULE PO SCH ×2 (10:46→21:57)
[2019-05-16] MEDS: amLODIPine BESYLATE 5 MG TABLET (FP) PO SCH (10:46)
[2019-05-16] MEDS: PRENATAL VITAMINS W/ FOLIC ACID TABLET (FP) PO SCH (10:46)
[2019-05-16] MEDS: NICOTINE 21 MG/24 HOURS TOPICAL PATCH TD SCH (10:47)
[2019-05-16] MEDS: THIAMINE HCL 100 MG TABLET (FP) PO SCH (21:57)
[2019-05-16] MEDS: OLANZapine 10 MG TABLET PO SCH (21:59)
[2019-05-17] MEDS ORDERED: chlordiazePOXIDE HCL 10 MG CAPSULE PO SCH (05:00)
--- NOTE | 2019-05-17 09:02 | PN ---
S CIWA - CIWA Score Nausea/Vomitin-No Nausea/No Vomiting Muscle Tremors: None Anxiety: 1-Mildly Anxious Agitation: 0-Normal Activity Paroxysmal Sweats: No Perspiration Orientation: 0-Oriented Tacttile Disturbances: 0-None Auditory Disturbances: 0-None Visual Disturbances: 0-None Headache: 1-Very Mild CIWA-Ar Total Score: 2 BHS Progress Note (SOAP) Subjective: alert,no complaint Objective: 05/17/19 09:01 Vital Signs Temperature 97.9 F 05/17/19 06:38 Pulse Rate 78 05/17/19 06:38 Respiratory Rate 20 05/17/19 06:38 Blood Pressure 148/84 05/17/19 06:38 O2 Sat by Pulse Oximetry (%) Assessment: 05/17/19 09:01 no withdrawal symptom Plan: patient is stable for discharge today,follow up with after care program as arrangement,declined going [facility]
--- NOTE | 2019-05-17 09:09 | DS ---
[facility] Detox Discharge Summary Admission Date: 05/13/19 Discharge Date: 05/17/19 - History Present History: Alcohol Dependence, Opioid Dependence Additional Comments: alert,oriented x 3 ambulation on the unit heart normal heart sound,s1s2 lung clear,no wheezing abdomen soft,no distension,no pain no calf tenderness patient is stable for discharge total time spending on discharge is 35 mins please acll intake if changing your mind and would like to go to [facility] Pertinent Past History: hypertension nicotine dependence - Physical Exam Results Vital Signs: Vital Signs Temperature 97.9 F 05/17/19 06:38 Pulse Rate 78 05/17/19 06:38 Respiratory Rate 05/17/19 06:38 Blood Pressure 148/84 05/17/19 06:38 O2 Sat by Pulse Oximetry (%) Pertinent Admission Physical Exam Findings: withdrawal signs and symptom - Treatment Hospital Course: Detox Protocol Followed, Detoxed Safely, Responded well, Discharged Condition Good Patient has Accepted a Rehab Referral to: declined - Medication Discharge Medications: Ambulatory Orders Gabapentin [Neurontin -] 300 mg PO BID #60 capsule 05/14/18 Amlodipine Besylate [Norvasc -] 5 mg PO DAILY 30 Days #30 tablet 02/12/19 Olanzapine [ZyPREXA -] 10 mg PO HS #30 tablet 02/14/19 - Diagnosis (1) Alcohol dependence with uncomplicated withdrawal Current Visit: Yes Status: Acute (2) HTN (hypertension) Current Visit: Yes Status: Acute (3) Nicotine dependence Current Visit: Yes Status: Acute Qualifiers: Nicotine product type: cigarettes Substance use status: uncomplicated Qualified Code(s): F17.210 - Nicotine dependence, cigarettes, uncomplicated (4) Opioid dependence Current Visit: Yes Status: Acute - AMA Did Patient Leave Against Medical Advice: No
[2019-05-17] MEDS: GABAPENTIN 300 MG CAPSULE PO SCH (09:16)
[2019-05-17] MEDS: PRENATAL VITAMINS W/ FOLIC ACID TABLET (FP) PO SCH (09:16)
[2019-05-17] MEDS: amLODIPine BESYLATE 5 MG TABLET (FP) PO SCH (09:16)
[2019-05-17 09:55] VITALS: BP 143/79; PULSE 91; TEMP 96.6
[2019-05-17] MEDS ORDERED: METHADONE HCL 10 MG TABLET (FOR DETOX USE ONLY) PO ONE (10:00)
[2019-05-18] MEDS ORDERED: chlordiazePOXIDE HCL 10 MG CAPSULE PO ONE (05:00)
[2019-05-18] MEDS ORDERED: METHADONE HCL 5 MG TABLET (FOR DETOX USE ONLY) PO ONE (06:00)
== END 2019-05-17 09:52 | disposition home or self-care (01) | DRG 773 ==
LOC: YASAS 13:30 → Y6N 16:40
PROVIDERS: ADMIT Allergy & Immunology; ATTEND Allergy & Immunology
PROC: HZ2ZZZZ Detoxification Services for Substance Abuse Treatment (ICD-10-PCS; principal; 2019-05-13)
DX: F10.230 Alcohol dependence with withdrawal, uncomplicated (principal); F11.23 Opioid dependence with withdrawal; F14.20 Cocaine dependence, uncomplicated; F17.210 Nicotine dependence, cigarettes, uncomplicated; F31.9 Bipolar disorder, unspecified; I10 Essential (primary) hypertension; Z95.810 Presence of automatic (implantable) cardiac defibrillator; Z62.810 Personal history of physical and sexual abuse in childhood; R76.11 Nonspecific reaction to tuberculin skin test without active tuberculosis; Z91.018 Allergy to other foods
CPT/HCPCS: 36415; 80053; 85027; 86593; 87389; 93005; 93010

== ENCOUNTER 2019-09-06 12:26 | Inpatient (IN) | payer OTHER ==
--- NOTE | 2019-09-06 12:30 | HP ---
[facility] Rehab Assess/Revision - Admission History Admitted to Rehab from: [facility] Date of Admission to Rehab: 09/06/2019 - Findings Detox History & Physical reviewed: Yes Concur with findings: Yes Inpatient Rehab Admission - Rehab Decision to Admit Inpatient rehab admission?: Yes - Initial Determination Are CD services needed?: Yes Free of communicable disease: Yes Not in need of hospitalization: Yes - Rehab Admission Criteria Previous failed treatment: Yes Poor recovery environment: Yes Comorbidities: No Lacks judgement: No Patient is meeting Inpatient Rehab admission criteria:: Yes
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
[2019-09-06] MEDS ORDERED: MENTHOL/PHENOL 1 EACH UD MM PRN (14:00)
[2019-09-06] MEDS ORDERED: MAG HYDROX/AL HYDROX/SIMETH 30 ML UNIT-DOSE CUP PO PRN (14:00)
[2019-09-06] MEDS ORDERED: MAGNESIUM HYDROX 2400MG/30ML ORAL SUSPENSION 30 ML CUP PO PRN (14:00)
[2019-09-06] MEDS ORDERED: ACETAMINOPHEN 325 MG TABLET (FP) PO PRN (14:00)
[2019-09-06] MEDS ORDERED: MAGNESIUM CITRATE 300 ML BOTTLE PO PRN (14:00)
[2019-09-06] MEDS ORDERED: NICOTINE POLACRILEX 2 MG GUM BUC PRN (14:00)
[2019-09-06] MEDS ORDERED: P-EPHED 60MG/TRIPROLIDI 2.5MG TABLET PO PRN (14:00)
[2019-09-06] MEDS ORDERED: LOPERAMIDE HCL 2 MG CAPSULE PO PRN (14:00)
[2019-09-06] MEDS ORDERED: guaiFENesin 200 MG/10 ML 10 ML UNIT-DOSE CUPS PO PRN (14:00)
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
[2019-09-06] MEDS ORDERED: SUVOREXANT 10 MG TABLET PO PRN (22:00)
[2019-09-06] MEDS: MELATONIN 5 MG TABLETS PO SCH (22:15)
[2019-09-06] MEDS: OLANZapine 10 MG TABLET PO SCH (22:15)
[2019-09-06] MEDS: GABAPENTIN 300 MG CAPSULE PO SCH (22:15)
[2019-09-06] MEDS: THIAMINE HCL 100 MG TABLET (FP) PO SCH (22:15)
[2019-09-07] MEDS: IBUPROFEN 400 MG TABLET (FP) PO PRN ×3 (03:35→17:31)
--- NOTE | 2019-09-07 04:18 | PN ---
[facility] Progress Note Note: Patient was seen and evaluated with complain that he hit the dorsal aspect of the left foot on the side of the bed. The left foot is noted with an old scar, pitting edema and soft to touch. No bleeding, acute swelling and guarding behavior noted. Vital Signs Temperature 98.5 F 09/07/19 04:14 Pulse Rate 78 09/07/19 04:14 Respiratory Rate 20 09/07/19 04:14 Blood Pressure 153/96 09/07/19 04:14 O2 Sat by Pulse Oximetry (%) 96 09/06/19 22:00 Action: Apply ice as needed Ibuprofen 400mg tablet oral Q6H prn Elevate left lower extremity Monitor patient
[2019-09-07] MEDS: GABAPENTIN 300 MG CAPSULE PO SCH ×2 (10:18→21:03)
[2019-09-07] MEDS: PRENATAL VITAMINS W/ FOLIC ACID TABLET (FP) PO SCH (10:18)
[2019-09-07] MEDS: amLODIPine BESYLATE 5 MG TABLET (FP) PO SCH (10:18)
[2019-09-07] MEDS: NICOTINE 7 MG/24 HOURS TOPICAL PATCH TD SCH (10:19)
[2019-09-07] MEDS: hydrOXYzine PAMOATE 25 MG CAPSULE (FP) PO PRN (14:59)
[2019-09-07] MEDS: MELATONIN 5 MG TABLETS PO SCH (21:03)
[2019-09-07] MEDS: OLANZapine 10 MG TABLET PO SCH (21:03)
[2019-09-07] MEDS: THIAMINE HCL 100 MG TABLET (FP) PO SCH (21:03)
[2019-09-08] MEDS: PRENATAL VITAMINS W/ FOLIC ACID TABLET (FP) PO SCH (10:14)
[2019-09-08] MEDS: amLODIPine BESYLATE 5 MG TABLET (FP) PO SCH (10:14)
[2019-09-08] MEDS: NICOTINE 7 MG/24 HOURS TOPICAL PATCH TD SCH (10:14)
[2019-09-08] MEDS: hydrOXYzine PAMOATE 25 MG CAPSULE (FP) PO PRN (10:15)
[2019-09-08] MEDS: GABAPENTIN 300 MG CAPSULE PO SCH ×2 (10:15→22:09)
[2019-09-08] MEDS: IBUPROFEN 400 MG TABLET (FP) PO PRN ×2 (10:15→20:00)
[2019-09-08] MEDS ORDERED: MASKS NR ONE (12:16)
[2019-09-08] MEDS: MELATONIN 5 MG TABLETS PO SCH (22:09)
[2019-09-08] MEDS: OLANZapine 10 MG TABLET PO SCH (22:09)
[2019-09-08] MEDS: THIAMINE HCL 100 MG TABLET (FP) PO SCH (22:09)
[2019-09-09] MEDS: GABAPENTIN 300 MG CAPSULE PO SCH ×2 (10:17→21:07)
[2019-09-09] MEDS: IBUPROFEN 400 MG TABLET (FP) PO PRN ×2 (10:17→16:40)
[2019-09-09] MEDS: amLODIPine BESYLATE 5 MG TABLET (FP) PO SCH (10:17)
[2019-09-09] MEDS: PRENATAL VITAMINS W/ FOLIC ACID TABLET (FP) PO SCH (10:17)
[2019-09-09] MEDS: NICOTINE 7 MG/24 HOURS TOPICAL PATCH TD SCH (10:18)
[2019-09-09] MEDS: MELATONIN 5 MG TABLETS PO SCH (21:07)
[2019-09-09] MEDS: OLANZapine 10 MG TABLET PO SCH (21:07)
[2019-09-09] MEDS: THIAMINE HCL 100 MG TABLET (FP) PO SCH (21:07)
[2019-09-09] MEDS ORDERED: SUVOREXANT 10 MG TABLET PO PRN (22:00)
[2019-09-10] MEDS: PRENATAL VITAMINS W/ FOLIC ACID TABLET (FP) PO SCH (09:32)
[2019-09-10] MEDS: amLODIPine BESYLATE 5 MG TABLET (FP) PO SCH (09:32)
[2019-09-10] MEDS: GABAPENTIN 300 MG CAPSULE PO SCH ×2 (09:32→21:48)
[2019-09-10] MEDS: NICOTINE 7 MG/24 HOURS TOPICAL PATCH TD SCH (09:33)
[2019-09-10] MEDS: OLANZapine 10 MG TABLET PO SCH (21:48)
[2019-09-10] MEDS: THIAMINE HCL 100 MG TABLET (FP) PO SCH (21:48)
[2019-09-10] MEDS: MELATONIN 5 MG TABLETS PO SCH (21:48)
[2019-09-11] MEDS: amLODIPine BESYLATE 5 MG TABLET (FP) PO SCH (09:32)
[2019-09-11] MEDS: PRENATAL VITAMINS W/ FOLIC ACID TABLET (FP) PO SCH (09:32)
[2019-09-11] MEDS: GABAPENTIN 300 MG CAPSULE PO SCH ×2 (09:32→21:05)
[2019-09-11] MEDS: NICOTINE 7 MG/24 HOURS TOPICAL PATCH TD SCH (09:33)
[2019-09-11] MEDS: MELATONIN 5 MG TABLETS PO SCH (21:05)
[2019-09-11] MEDS: THIAMINE HCL 100 MG TABLET (FP) PO SCH (21:05)
[2019-09-11] MEDS: OLANZapine 10 MG TABLET PO SCH (21:06)
[2019-09-12] MEDS: amLODIPine BESYLATE 5 MG TABLET (FP) PO SCH (09:58)
[2019-09-12] MEDS: GABAPENTIN 300 MG CAPSULE PO SCH ×2 (09:58→21:44)
[2019-09-12] MEDS: PRENATAL VITAMINS W/ FOLIC ACID TABLET (FP) PO SCH (09:59)
[2019-09-12] MEDS: NICOTINE 7 MG/24 HOURS TOPICAL PATCH TD SCH (09:59)
[2019-09-12] MEDS: IBUPROFEN 400 MG TABLET (FP) PO PRN (15:38)
[2019-09-12] MEDS: MELATONIN 5 MG TABLETS PO SCH (21:44)
[2019-09-12] MEDS: THIAMINE HCL 100 MG TABLET (FP) PO SCH (21:44)
[2019-09-12] MEDS: OLANZapine 10 MG TABLET PO SCH (21:45)
[2019-09-13] MEDS: GABAPENTIN 300 MG CAPSULE PO SCH ×2 (09:31→21:53)
[2019-09-13] MEDS: PRENATAL VITAMINS W/ FOLIC ACID TABLET (FP) PO SCH (09:32)
[2019-09-13] MEDS: amLODIPine BESYLATE 5 MG TABLET (FP) PO SCH (09:32)
[2019-09-13] MEDS: NICOTINE 7 MG/24 HOURS TOPICAL PATCH TD SCH (10:14)
--- NOTE | 2019-09-13 11:16 | PN ---
S Progress Note Note: Patient c/o left dorsal foot discomfort despite interventions of cool compress and ibuprofen prn. Patient states " I think something is wrong with the bones of my foot". He denies any recent injuries or falls in the last 3 days. Vital Signs Temperature 98.1 F 09/13/19 08:24 Pulse Rate 83 09/13/19 08:24 Respiratory Rate 18 09/13/19 08:24 Blood Pressure 141/80 09/13/19 08:24 O2 Sat by Pulse Oximetry (%) 97 09/13/19 08:12 PE: alert and oriented x 3 skin warm and dry +perrla eoms intact bl ext full rom, left dorsal aspect tender no redness or swelling amb ad anmol A/P: left foot discomfort Will order XRAY of left foot and ankle due to persistent pain monitor clinically
[2019-09-13] MEDS: THIAMINE HCL 100 MG TABLET (FP) PO SCH (21:53)
[2019-09-13] MEDS: MELATONIN 5 MG TABLETS PO SCH (21:53)
[2019-09-13] MEDS: OLANZapine 10 MG TABLET PO SCH (21:54)
[2019-09-14] MEDS: amLODIPine BESYLATE 5 MG TABLET (FP) PO SCH (09:53)
[2019-09-14] MEDS: PRENATAL VITAMINS W/ FOLIC ACID TABLET (FP) PO SCH (09:53)
[2019-09-14] MEDS: NICOTINE 7 MG/24 HOURS TOPICAL PATCH TD SCH (09:54)
[2019-09-14] MEDS: GABAPENTIN 300 MG CAPSULE PO SCH ×2 (09:54→21:45)
[2019-09-14] MEDS: IBUPROFEN 400 MG TABLET (FP) PO PRN (18:54)
[2019-09-14] MEDS: MELATONIN 5 MG TABLETS PO SCH (21:45)
[2019-09-14] MEDS: THIAMINE HCL 100 MG TABLET (FP) PO SCH (21:45)
[2019-09-14] MEDS: OLANZapine 10 MG TABLET PO SCH (21:45)
[2019-09-15] MEDS: NICOTINE 7 MG/24 HOURS TOPICAL PATCH TD SCH (10:09)
[2019-09-15] MEDS: GABAPENTIN 300 MG CAPSULE PO SCH ×2 (10:09→22:00)
[2019-09-15] MEDS: PRENATAL VITAMINS W/ FOLIC ACID TABLET (FP) PO SCH (10:09)
[2019-09-15] MEDS: amLODIPine BESYLATE 5 MG TABLET (FP) PO SCH (10:09)
[2019-09-15] MEDS: IBUPROFEN 400 MG TABLET (FP) PO PRN (16:08)
[2019-09-15] MEDS: MELATONIN 5 MG TABLETS PO SCH (22:00)
[2019-09-15] MEDS: THIAMINE HCL 100 MG TABLET (FP) PO SCH (22:00)
[2019-09-15] MEDS: OLANZapine 10 MG TABLET PO SCH (22:01)
[2019-09-16] MEDS ORDERED: COLLOIDAL OATMEAL 1 BAR EACH TP PRN (09:42)
[2019-09-16] MEDS: NICOTINE 7 MG/24 HOURS TOPICAL PATCH TD SCH (09:49)
[2019-09-16] MEDS: PRENATAL VITAMINS W/ FOLIC ACID TABLET (FP) PO SCH (09:49)
[2019-09-16] MEDS: GABAPENTIN 300 MG CAPSULE PO SCH ×2 (09:49→21:20)
[2019-09-16] MEDS: amLODIPine BESYLATE 5 MG TABLET (FP) PO SCH (09:49)
--- NOTE | 2019-09-16 11:07 | PN ---
S Progress Note Note: Vital Signs Temperature 98.0 F 09/16/19 08:44 Pulse Rate 87 09/16/19 08:44 Respiratory Rate 18 09/16/19 08:44 Blood Pressure 132/78 09/16/19 08:44 O2 Sat by Pulse Oximetry (%) 98 09/16/19 06:58 Patient seen for follow up XRAY results. Patient denies any medical complaints at this time. XRAY results of right foot/ankle + mild/moderate degenerative OA. No abnormalities, fractures noted. No further treatment warranted.
[2019-09-16] MEDS: IBUPROFEN 400 MG TABLET (FP) PO PRN (14:20)
[2019-09-16] MEDS: hydrOXYzine PAMOATE 25 MG CAPSULE (FP) PO PRN (21:20)
[2019-09-16] MEDS: MELATONIN 5 MG TABLETS PO SCH (21:20)
[2019-09-16] MEDS: OLANZapine 10 MG TABLET PO SCH (21:20)
[2019-09-16] MEDS: THIAMINE HCL 100 MG TABLET (FP) PO SCH (21:20)
[2019-09-17] MEDS: amLODIPine BESYLATE 5 MG TABLET (FP) PO SCH (09:34)
[2019-09-17] MEDS: hydrOXYzine PAMOATE 25 MG CAPSULE (FP) PO PRN (09:34)
[2019-09-17] MEDS: NICOTINE 7 MG/24 HOURS TOPICAL PATCH TD SCH (09:34)
[2019-09-17] MEDS: PRENATAL VITAMINS W/ FOLIC ACID TABLET (FP) PO SCH (09:34)
[2019-09-17] MEDS: GABAPENTIN 300 MG CAPSULE PO SCH ×2 (09:34→21:45)
--- NOTE | 2019-09-17 10:14 | DS ---
[facility] Rehab Discharge Summary - [facility] Rehab Discharge Summary Admission Date: 09/06/19 Discharge Date: 09/17/19 - History Present History: Alcohol dependence, Cannabis dependence, Cocaine dependence, Opioid dependence Pertinent Past History: 49 year old man presents for alcohol and heroin treatment. He reports seizure a year ago and blackout 2 weeks prior to admission. He denies overdose. - Discharge Physical Exam Vital Signs: Vital Signs Temperature 98 F 09/17/19 07:16 Pulse Rate 94 H 09/17/19 09:14 Respiratory Rate 18 09/17/19 09:14 Blood Pressure 151/87 09/17/19 09:14 O2 Sat by Pulse Oximetry (%) 99 09/17/19 07:16 Pertinent Admission Physical Exam Findings: Physical General Appearance: No Apparent Distress HEENTM: Normocephalic Respiratory: No Respiratory Distress, No Accessory Muscle Use Neck: Supple Cardiology: S1, S2 Abdominal: +Bowel Sounds, Musculoskeletal: full range of Motion, Gait Steady, Neurological: no cognitive deficits - Treatment Discharge Condition: Outpatient referral accepted (Medically stable for discharge.Patient will go to [facility] [place] [facility]) Hospital Course: Patient attended groups, had 1:1 with his counselor, was seen by the psychiatric service. He c/o pain in the lower extremities, and x-ray showed osteoarthritis, and he was treated for the pain. He was adherent to his medical regimen and treatment plan. He had no other issues while in detox. - Medication Discharge Medications: Ambulatory Orders Olanzapine [ZyPREXA -] 10 mg PO HS #30 tablet 02/14/19 Amlodipine Besylate [Norvasc -] 10 mg PO DAILY #14 tablet 09/17/19 Gabapentin [Neurontin] 300 mg PO BID #30 cap 09/17/19 - Medication-Assisted Treatment (MAT) Medication-Assisted Treatment (MAT): No - Discharge Instructions Diet, activity, other medical instructions: Diet:as tolerated Activity: as tolerated Other medical instructions: Please follow up with aftercare referral. See PCP about lower extremity osteoarthritis. - Diagnosis (1) Alcohol dependence Current Visit: Yes Status: Chronic (2) Cannabis dependence Current Visit: Yes Status: Chronic (3) Cocaine dependence Current Visit: No Status: Chronic Qualifiers: Substance use status: uncomplicated Qualified Code(s): F14.20 - Cocaine dependence, uncomplicated (4) Opioid dependence Current Visit: No Status: Chronic - Follow-up Referral Minutes to complete discharge: 20 - AMA Did Patient Leave Against Medical Advice: No
--- NOTE | 2019-09-17 11:22 | PN ---
[facility] Progress Note Note: Patient is scheduled for discharge tomorrow. Scripts for 30 days supply of medications(Zyprexa 10 g/hs, Gabapentin 300 mg/bid) will be electronically transmitted to [facility], [address] [place] [phone]
[2019-09-17] MEDS ORDERED: MASKS NR ONE (16:42)
[2019-09-17] MEDS: MELATONIN 5 MG TABLETS PO SCH (21:45)
[2019-09-17] MEDS: THIAMINE HCL 100 MG TABLET (FP) PO SCH (21:45)
[2019-09-17] MEDS: OLANZapine 10 MG TABLET PO SCH (21:46)
[2019-09-18 07:51] VITALS: BP 117/84; PULSE 79; TEMP 98.6
[2019-09-18] MEDS: PRENATAL VITAMINS W/ FOLIC ACID TABLET (FP) PO SCH (09:04)
[2019-09-18] MEDS: GABAPENTIN 300 MG CAPSULE PO SCH (09:04)
[2019-09-18] MEDS: amLODIPine BESYLATE 5 MG TABLET (FP) PO SCH (09:04)
[2019-09-18] MEDS: NICOTINE 7 MG/24 HOURS TOPICAL PATCH TD SCH (09:05)
== END 2019-09-18 09:07 | disposition home or self-care (01) | DRG 772 ==
LOC: YASAS 12:26 → Y3W 12:27
PROVIDERS: ADMIT Allergy & Immunology; ATTEND Allergy & Immunology
PROC: HZ42ZZZ Group Counseling for Substance Abuse Treatment, Cognitive-Behavioral (ICD-10-PCS; principal; 2019-09-06)
DX: F11.20 Opioid dependence, uncomplicated (principal); F10.20 Alcohol dependence, uncomplicated; F14.20 Cocaine dependence, uncomplicated; F12.20 Cannabis dependence, uncomplicated; F17.210 Nicotine dependence, cigarettes, uncomplicated; F31.9 Bipolar disorder, unspecified; I10 Essential (primary) hypertension; J45.20 Mild intermittent asthma, uncomplicated; M19.071 Primary osteoarthritis, right ankle and foot; M79.89 Other specified soft tissue disorders; Z62.810 Personal history of physical and sexual abuse in childhood; Z87.438 Personal history of other diseases of male genital organs; Z91.018 Allergy to other foods
CPT/HCPCS: 73610-TC-LT-FY; 73630-TC-LT

== ENCOUNTER 2019-11-24 10:11 | Inpatient (IN) | payer OTHER ==
[2019-11-24 10:47] VITALS: BMI 25.9
--- NOTE | 2019-11-24 11:02 | HP ---
COWS - Scale Resting Pulse: 0= [place] 80 or Below Sweatin= Chills/Flushing Restless Observation: 1= Difficult to Sit Still Pupil Size: 1= Pupils >than Normal Bone or Joint Aches: 2= Severe Diffuse Aches Runny Nose/ Eye Tearin= Runny Nose/Eyes GI Upset > 30mins: 2= Nausea/Diarrhea Tremor Observation: 2= Slight Tremor Visible Yawning Observation: 1= 1-2x During Session Anxiety or Irritability: 1=Feels Anxious/Irritable Goose Flesh Skin: 3=Piloerection COWS Score: 16 CIWA Score Nausea/Vomitin Muscle Tremors: 2 Anxiety: 2 Agitation: 2 Paroxysmal Sweats: 2 Orientation: 0-Oriented Tacttile Disturbances: 1-Very Mild Itch/Numbness Auditory Disturbances: 2-Mild Harshness/Frighten Visual Disturbances: 2-Mild Sensitivity Headache: 0-None Present CIWA-Ar Total Score: 15 - Admission Criteria OASAS Guidelines: Admission for Medically Managed Detox: Requires at least one of the followin. CIWA greater than 12 2. Seizures within the past 24 hours 3. Delirium tremens within the past 24 hours 4. Hallucinations within the past 24 hours 5. Acute intervention needed for co occurring medical disorder 6. Acute intervention needed for co occurring psychiatric disorder 7. Severe withdrawal that cannot be handled at a lower level of care (continued vomiting, continued diarrhea, abnormal vital signs) requiring intravenous medication and/or fluids 8. Admitting History and Physical - Past Medical History Cardiovascular: Yes: HTN Psych: Yes: Bipolar - Smoking History Smoking history: Current every day smoker Have you smoked in the past 12 months: Yes Aproximately how many cigarettes per day: 20 - Alcohol/Substance Use Hx Alcohol Use: Yes Admission [facility] Chief Complaint: Withdrawal sx Allergies/Adverse Reactions: Allergies Allergy/AdvReac Type Severity Reaction Status Date / Time Pork/Porcine Containing Allergy Severe Hives Verified 09/01/19 15:08 Products No Known Drug Allergies Allergy Verified 09/01/19 15:08 NKDA Allergy Uncoded 09/01/19 15:08 History of Present Illness: Patient is a 49 year old man who presents for alcohol and heroin detox. He reports seizure a year and half ago and blackout 3 1/2 months ago. He denies overdose. Exam Limitations: No Limitations - Ebola screening Have you traveled outside of the country in the last 21 days: No Have you had contact with anyone from an Ebola affected area: No Have you been sick,other than usual withdrawal symptoms: No Do you have a fever: No - Review of Systems Constitutional: Chills, Loss of Appetite EENT: reports: Nose Congestion Respiratory: reports: SOB with Exertion Cardiac: reports: No Symptoms Reported GI: reports: Diarrhea, Nausea, Poor Appetite, Poor Fluid Intake, Abdominal cramping : reports: No Symptoms Reported Musculoskeletal: reports: Muscle Pain, Muscle Weakness Integumentary: reports: Sweating Neuro: reports: Numbness, Tremors Endocrine: reports: No Symptoms Reported Hematology: reports: No Symptoms Reported Psychiatric: reports: Anxious, Depressed Other Systems: Reviewed and Negative Patient History - Patient Medical History Hx Anemia: No Hx Asthma: Yes Hx Chronic Obstructive Pulmonary Disease (COPD): No Hx Cancer: No Hx Cardiac Disorders: No Hx Congestive Heart Failure: No Hx Hypertension: Yes Hx Hypercholesterolemia: No Hx Pacemaker: No HX Cerebrovascular Accident: No Hx Seizures: No Hx Dementia: No Hx Diabetes: No Hx Gastrointestinal Disorders: No Hx Liver Disease: No Hx Genitourinary Disorders: No Hx Sexually Transmitted Disorders: No Hx Renal Disease (ESRD): No Hx Thyroid Disease: No Hx Human Immunodeficiency Virus (HIV): No Hx Hepatitis C: No Hx Depression: Yes Hx Suicide Attempt: No Hx Bipolar Disorder: Yes Hx Schizophrenia: No - Patient Surgical History Past Surgical History: No Other Surgical History: biopsy right kidney 2 years ago at [facility] Anesthesia Reaction: No - PPD History Previous Implant?: No Documented Results: Positive w/proof Implanted On Prior [facility] Admission?: No Results: CXR 07/2018 NEG PPD to be Administered?: No - Smoking Cessation Smoking history: Current every day smoker Have you smoked in the past 12 months: Yes Aproximately how many cigarettes per day: 12 Cigars Per Day: 0 Hx Chewing Tobacco Use: No Initiated information on smoking cessation: Yes 'Breaking Loose' booklet given: 11/24/19 Admission Physical Exam [facility] - Vital Signs Vital Signs: Vital Signs - 24 hr 11/24/19 10:46 Temperature 98.4 F Pulse Rate 53 L Respiratory 17 Rate Blood Pressure 151/87 - Physical General Appearance: Yes: Tremorous, Sweating HEENTM: Yes: Normocephalic, Normal Voice, KAROL Respiratory: Yes: Chest Non-Tender, Lungs Clear, Normal Breath Sounds, No Respiratory Distress, No Accessory Muscle Use Neck: Yes: No masses,lesions,Nodules, Supple Breast: Yes: Breast Exam Deferred Cardiology: Yes: Regular Rhythm, Regular Rate, S1, S2 Abdominal: Yes: Normal Bowel Sounds, Non Tender, Soft Genitourinary: Yes: Within Normal Limits Back: Yes: Normal Inspection Musculoskeletal: Yes: full range of Motion, Pelvis Stable, Muscle Pain, Muscle weakness Extremities: Yes: Non-Tender, Tremors Neurological: Yes: victims advocate clerk/specialist II-XII NML intact, Fully Oriented, Alert, Normal Mood/Affect, Normal Response Integumentary: Yes: Cold Lymphatic: Yes: Within Normal Limits - Diagnostic (1) Alcohol dependence with uncomplicated withdrawal Current Visit: Yes Status: Acute (2) Cannabis dependence in early, early partial, sustained full, or sustained partial remission Current Visit: Yes Status: Acute (3) HTN (hypertension) Current Visit: Yes Status: Chronic Qualifiers: Hypertension type: essential hypertension Qualified Code(s): I10 - Essential (primary) hypertension (4) Opioid dependence with withdrawal Current Visit: Yes Status: Acute (5) Nicotine dependence Current Visit: Yes Status: Chronic Qualifiers: Nicotine product type: cigarettes Substance use status: uncomplicated Qualified Code(s): F17.210 - Nicotine dependence, cigarettes, uncomplicated Cleared for Admission [facility] - Detox or Rehab [facility] Level of Care: Medically Managed Detox Regimen/Protocol: Methadone/Librium Claeared for Rehab Admission: No Breathalyzer - Breathalyzer Breathalyzer: 0 Urine Drug Screen - Test Device Lot number: [id number] Expiration date: 06/25/21 - Control Is test valid?: Yes - Results Drug screen NEGATIVE: No Urine drug screen results: THC-Marijuana, ALESSANDRA-Cocaine, MOP-Opiates Inpatient Rehab Admission - Rehab Decision to Admit Inpatient rehab admission?: No
[2019-11-24] MEDS ORDERED: NICOTINE POLACRILEX 2 MG GUM BUC PRN (11:04)
[2019-11-24] MEDS ORDERED: METHADONE HCL 10 MG TABLET (FOR DETOX USE ONLY) PO ONE (11:04)
[2019-11-24] MEDS ORDERED: chlordiazePOXIDE HCL 10 MG CAPSULE PO PRN (11:04)
[2019-11-24] MEDS ORDERED: MAGNESIUM HYDROX 2400MG/30ML ORAL SUSPENSION 30 ML CUP PO PRN (11:04)
[2019-11-24] MEDS ORDERED: BISMUTH SUBSALICYLATE 524 MG/30 ML UD PO PRN (11:04)
[2019-11-24] MEDS ORDERED: METHOCARBAMOL 500 MG TABLET PO PRN (11:04)
[2019-11-24] MEDS ORDERED: IBUPROFEN 400 MG TABLET (FP) PO PRN (11:04)
[2019-11-24] MEDS ORDERED: MAGNESIUM CITRATE 300 ML BOTTLE PO PRN (11:04)
[2019-11-24] MEDS ORDERED: MENTHOL/PHENOL 1 EACH UD MM PRN (11:04)
[2019-11-24] MEDS ORDERED: MAG HYDROX/AL HYDROX/SIMETH 30 ML UNIT-DOSE CUP PO PRN (11:04)
[2019-11-24] MEDS ORDERED: ACETAMINOPHEN 325 MG TABLET (FP) PO PRN ×2 (11:04)
[2019-11-24] MEDS ORDERED: cloNIDine HCL 0.1 MG TABLET PO PRN (11:04)
[2019-11-24] MEDS: chlordiazePOXIDE HCL 25 MG CAPSULE PO SCH ×2 (12:21→22:23)
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
[2019-11-24] MEDS: MELATONIN 5 MG TABLETS PO SCH (22:23)
[2019-11-24] MEDS: GABAPENTIN 300 MG CAPSULE PO SCH (22:23)
[2019-11-24] MEDS: THIAMINE HCL 100 MG TABLET (FP) PO SCH (22:23)
[2019-11-24] MEDS: OLANZapine 10 MG TABLET PO SCH (22:24)
[2019-11-25] MEDS: chlordiazePOXIDE HCL 25 MG CAPSULE PO SCH ×3 (07:14→21:26)
[2019-11-25] MEDS ORDERED: METHADONE HCL 5 MG TABLET (FOR DETOX USE ONLY) PO ONE (10:00)
[2019-11-25 10:08] LABS: MCH 31.5 pg (25.7-33.7); MCHC 33.4 g/dl (32.0-35.9); MEAN CELL VOLUME 94.4 fl (80-96); MEAN PLT VOLUME 8.2 fl (7.5-11.1); PLATELET COUNT 243 K/MM3 (134-434); RBC 4.45 M/mm3 (4.00-5.60); RDW 13.3 % (11.9-15.9)
[2019-11-25 10:14] LABS: ALBUMIN 3.5 g/dl (3.4-5.0); BILIRUBIN,TOTAL 0.3 mg/dL (0.2-1); BLOOD UREA NITROGEN 7.4 mg/dL (7-18); CALCIUM 8.9 mg/dL (8.5-10.1); CREATININE 1.2 mg/dL (0.55-1.3); POTASSIUM 3.6 mmol/L (3.5-5.1); TOT PROT 7.2 g/dl (6.4-8.2)
[2019-11-25] MEDS: PRENATAL VITAMINS W/ FOLIC ACID TABLET (FP) PO SCH (11:28)
[2019-11-25] MEDS: GABAPENTIN 300 MG CAPSULE PO SCH ×2 (11:31→21:26)
[2019-11-25] MEDS: NICOTINE 7 MG/24 HOURS TOPICAL PATCH TD SCH (11:33)
--- NOTE | 2019-11-25 12:07 | PN ---
S CIWA - CIWA Score Nausea/Vomitin Muscle Tremors: 2 Anxiety: 2 Agitation: 2 Paroxysmal Sweats: 1-Minimal Palms Moist Orientation: 0-Oriented Tacttile Disturbances: 1-Very Mild Itch/Numbness Auditory Disturbances: 0-None Visual Disturbances: 0-None Headache: 2-Mild CIWA-Ar Total Score: 12 [facility] COWS - Scale Resting Pulse: 0= [place] 80 or Below Sweatin= No chills or Flushing Restless Observation: 0= Sits Still Pupil Size: 1= Pupils >than Normal Bone or Joint Aches: 2= Severe Diffuse Aches Runny Nose/ Eye Tearin= Nasal Congestion GI Upset > 30mins: 2= Nausea/Diarrhea Tremor Observation of Outstretched Hands: 2= Slight Tremor Visible Yawning Observation: 1= 1-2x During Session Anxiety or Irritability: 2=Irritable/Anxious Goose Flesh Skin: 0=Smooth Skin COWS Score: 11 S Progress Note (SOAP) Subjective: alert,irritable,anxious,interrupted sleep,tremor,pain in the body and back,nausea Objective: 11/25/19 12:05 Vital Signs Temperature 98.9 F 11/25/19 08:24 Pulse Rate 61 11/25/19 08:24 Respiratory Rate 19 11/25/19 08:24 Blood Pressure 145/83 11/25/19 08:24 O2 Sat by Pulse Oximetry (%) 98 11/25/19 08:24 11/25/19 12:05 Laboratory Last Values WBC 8.0 K/mm3 (4.0-10.0) 11/25/19 07:40 RBC 4.45 M/mm3 (4.00-5.60) 11/25/19 07:40 Hgb 14.0 GM/dL (11.7-16.9) 11/25/19 07:40 Hct 42.0 % (35.4-49) 11/25/19 07:40 MCV 94.4 fl (80-96) 11/25/19 07:40 MCH 31.5 pg (25.7-33.7) 11/25/19 07:40 MCHC 33.4 g/dl (32.0-35.9) 11/25/19 07:40 RDW 13.3 % (11.9-15.9) 11/25/19 07:40 Plt Count 243 K/MM3 (134-434) 11/25/19 07:40 MPV 8.2 fl (7.5-11.1) 11/25/19 07:40 Sodium 144 mmol/L (136-145) 11/25/19 07:40 Potassium 3.6 mmol/L (3.5-5.1) 11/25/19 07:40 Chloride 108 mmol/L (98-107) H 11/25/19 07:40 Carbon Dioxide 30 mmol/L (21-32) 11/25/19 07:40 Anion Gap 6 MMOL/L (8-16) L 11/25/19 07:40 BUN 7.4 mg/dL (7-18) 11/25/19 07:40 Creatinine 1.2 mg/dL (0.55-1.3) 11/25/19 07:40 Est GFR (CKD-EPI)AfAm 82.38 11/25/19 07:40 Est GFR (CKD-EPI)NonAf 71.08 11/25/19 07:40 Random Glucose 77 mg/dL (74-106) 11/25/19 07:40 Calcium 8.9 mg/dL (8.5-10.1) 11/25/19 07:40 Total Bilirubin 0.3 mg/dL (0.2-1) 11/25/19 07:40 AST 12 U/L (15-37) L 11/25/19 07:40 ALT 18 U/L (13-61) 11/25/19 07:40 Alkaline Phosphatase 119 U/L (45-117) H 11/25/19 07:40 Total Protein 7.2 g/dl (6.4-8.2) 11/25/19 07:40 Albumin 3.5 g/dl (3.4-5.0) 11/25/19 07:40 Syphilis Serology Non-reactive (NONREACTIVE) 11/25/19 07:40 HIV Ag/Ab Combo Qual Negative (NEGATIVE) 11/25/19 07:40 Assessment: 11/25/19 12:06 withdrawal symptom Plan: continue detox methadone and librium regimen
--- NOTE | 2019-11-25 13:37 | PN ---
[facility] Progress Note Note: addendum methadone adjusted to severe withdrawal regimen and librium
[2019-11-25] MEDS ORDERED: METHADONE HCL 10 MG TABLET (FOR DETOX USE ONLY) PO ONE (14:00)
[2019-11-25] MEDS: THIAMINE HCL 100 MG TABLET (FP) PO SCH (21:26)
[2019-11-25] MEDS: OLANZapine 10 MG TABLET PO SCH (21:27)
[2019-11-25] MEDS: MELATONIN 5 MG TABLETS PO SCH (21:30)
[2019-11-26] MEDS: chlordiazePOXIDE 5 MG CAPSULE PO SCH ×3 (05:38→22:15)
[2019-11-26] MEDS ORDERED: METHADONE HCL 10 MG TABLET (FOR DETOX USE ONLY) PO ONE ×2 (10:00)
[2019-11-26] MEDS: GABAPENTIN 300 MG CAPSULE PO SCH ×2 (10:07→22:15)
[2019-11-26] MEDS: amLODIPine BESYLATE 10 MG TABLET (FP) PO SCH (10:07)
[2019-11-26] MEDS: NICOTINE 7 MG/24 HOURS TOPICAL PATCH TD SCH (10:08)
[2019-11-26] MEDS: PRENATAL VITAMINS W/ FOLIC ACID TABLET (FP) PO SCH (10:08)
--- NOTE | 2019-11-26 11:45 | PN ---
[facility] CIWA - CIWA Score Nausea/Vomitin-Mild Nausea/No Vomiting Muscle Tremors: 2 Anxiety: 2 Agitation: 2 Paroxysmal Sweats: 1-Minimal Palms Moist Orientation: 0-Oriented Tacttile Disturbances: 0-None Auditory Disturbances: 0-None Visual Disturbances: 0-None Headache: 1-Very Mild CIWA-Ar Total Score: 9 S COWS - Scale Resting Pulse: 0= [place] 80 or Below Sweatin= No chills or Flushing Restless Observation: 0= Sits Still Pupil Size: 0= Normal to Room Light Bone or Joint Aches: 1= Mild Discomfort Runny Nose/ Eye Tearin= Nasal Congestion GI Upset > 30mins: 1= Stomach Cramp Tremor Observation of Outstretched Hands: 2= Slight Tremor Visible Yawning Observation: 0= None Anxiety or Irritability: 2=Irritable/Anxious Goose Flesh Skin: 0=Smooth Skin COWS Score: 7 S Progress Note (SOAP) Subjective: alert,irritable,anxious,interrupted sleep,tremor,pain in the body and back Objective: 11/26/19 11:43 Vital Signs Temperature 98.1 F 11/26/19 08:21 Pulse Rate 63 11/26/19 08:21 Respiratory Rate 16 11/26/19 08:21 Blood Pressure 115/63 11/26/19 08:21 O2 Sat by Pulse Oximetry (%) 96 11/26/19 05:35 Laboratory Last Values WBC 8.0 K/mm3 (4.0-10.0) 11/25/19 07:40 RBC 4.45 M/mm3 (4.00-5.60) 11/25/19 07:40 Hgb 14.0 GM/dL (11.7-16.9) 11/25/19 07:40 Hct 42.0 % (35.4-49) 11/25/19 07:40 MCV 94.4 fl (80-96) 11/25/19 07:40 MCH 31.5 pg (25.7-33.7) 11/25/19 07:40 MCHC 33.4 g/dl (32.0-35.9) 11/25/19 07:40 RDW 13.3 % (11.9-15.9) 11/25/19 07:40 Plt Count 243 K/MM3 (134-434) 11/25/19 07:40 MPV 8.2 fl (7.5-11.1) 11/25/19 07:40 Sodium 144 mmol/L (136-145) 11/25/19 07:40 Potassium 3.6 mmol/L (3.5-5.1) 11/25/19 07:40 Chloride 108 mmol/L (98-107) H 11/25/19 07:40 Carbon Dioxide 30 mmol/L (21-32) 11/25/19 07:40 Anion Gap 6 MMOL/L (8-16) L 11/25/19 07:40 BUN 7.4 mg/dL (7-18) 11/25/19 07:40 Creatinine 1.2 mg/dL (0.55-1.3) 11/25/19 07:40 Est GFR (CKD-EPI)AfAm 82.38 11/25/19 07:40 Est GFR (CKD-EPI)NonAf 71.08 11/25/19 07:40 Random Glucose 77 mg/dL (74-106) 11/25/19 07:40 Calcium 8.9 mg/dL (8.5-10.1) 11/25/19 07:40 Total Bilirubin 0.3 mg/dL (0.2-1) 11/25/19 07:40 AST 12 U/L (15-37) L 11/25/19 07:40 ALT 18 U/L (13-61) 11/25/19 07:40 Alkaline Phosphatase 119 U/L (45-117) H 11/25/19 07:40 Total Protein 7.2 g/dl (6.4-8.2) 11/25/19 07:40 Albumin 3.5 g/dl (3.4-5.0) 11/25/19 07:40 Syphilis Serology Non-reactive (NONREACTIVE) 11/25/19 07:40 HIV Ag/Ab Combo Qual Negative (NEGATIVE) 11/25/19 07:40 Assessment: 11/26/19 11:45 withdrawal symptom Plan: continue detox methadone and librium regimen
[2019-11-26] MEDS: THIAMINE HCL 100 MG TABLET (FP) PO SCH (22:15)
[2019-11-26] MEDS: OLANZapine 10 MG TABLET PO SCH (22:16)
[2019-11-26] MEDS: MELATONIN 5 MG TABLETS PO SCH (22:18)
[2019-11-27] MEDS ORDERED: chlordiazePOXIDE HCL 10 MG CAPSULE PO PRN
[2019-11-27] MEDS: chlordiazePOXIDE HCL 10 MG CAPSULE PO SCH ×3 (05:56→22:48)
[2019-11-27] MEDS ORDERED: METHADONE HCL 5 MG TABLET (FOR DETOX USE ONLY) PO ONE ×2 (06:00→10:00)
[2019-11-27] MEDS: NICOTINE 7 MG/24 HOURS TOPICAL PATCH TD SCH (10:45)
[2019-11-27] MEDS: PRENATAL VITAMINS W/ FOLIC ACID TABLET (FP) PO SCH (10:45)
[2019-11-27] MEDS: amLODIPine BESYLATE 10 MG TABLET (FP) PO SCH (10:45)
[2019-11-27] MEDS: GABAPENTIN 300 MG CAPSULE PO SCH ×2 (10:45→22:49)
[2019-11-27] MEDS: MELATONIN 5 MG TABLETS PO SCH (22:49)
[2019-11-27] MEDS: THIAMINE HCL 100 MG TABLET (FP) PO SCH (22:49)
[2019-11-27] MEDS: OLANZapine 10 MG TABLET PO SCH (22:49)
[2019-11-28] MEDS ORDERED: chlordiazePOXIDE HCL 10 MG CAPSULE PO ONE (05:00)
[2019-11-28] MEDS ORDERED: METHADONE HCL 10 MG TABLET (FOR DETOX USE ONLY) PO ONE (10:00)
[2019-11-28] MEDS: amLODIPine BESYLATE 10 MG TABLET (FP) PO SCH (10:06)
[2019-11-28] MEDS: GABAPENTIN 300 MG CAPSULE PO SCH ×2 (10:06→23:17)
[2019-11-28] MEDS: PRENATAL VITAMINS W/ FOLIC ACID TABLET (FP) PO SCH (10:07)
[2019-11-28] MEDS: NICOTINE 7 MG/24 HOURS TOPICAL PATCH TD SCH (10:07)
--- NOTE | 2019-11-28 11:22 | PN ---
[facility] CIWA - CIWA Score Nausea/Vomitin-No Nausea/No Vomiting Muscle Tremors: 2 Anxiety: 1-Mildly Anxious Agitation: 0-Normal Activity Paroxysmal Sweats: No Perspiration Orientation: 0-Oriented Tacttile Disturbances: 0-None Auditory Disturbances: 0-None Visual Disturbances: 0-None Headache: 0-None Present CIWA-Ar Total Score: 3 S COWS - Scale Resting Pulse: 0= [place] 80 or Below Sweatin= No chills or Flushing Restless Observation: 0= Sits Still Pupil Size: 0= Normal to Room Light Bone or Joint Aches: 1= Mild Discomfort Runny Nose/ Eye Tearin= None GI Upset > 30mins: 0= None Tremor Observation of Outstretched Hands: 1= Tremor [place], Not Seen Yawning Observation: 0= None Anxiety or Irritability: 1=Feels Anxious/Irritable Goose Flesh Skin: 0=Smooth Skin COWS Score: 3 [facility] Progress Note (SOAP) Subjective: chest congestion anxiety Objective: 11/28/19 11:20 Vital Signs Temperature 97.8 F 11/28/19 09:28 Pulse Rate 71 11/28/19 09:28 Respiratory Rate 18 11/28/19 09:28 Blood Pressure 135/77 11/28/19 09:28 O2 Sat by Pulse Oximetry (%) 97 11/28/19 09:28 aaox3 ambulating no acute distress Assessment: 11/28/19 11:21 withdrawals lungs some congestion noted mucinex ordered Plan: continue detox d/c in am
[2019-11-28] MEDS: guaiFENesin 600 MG TABLET.ER (FP) PO SCH ×2 (11:52→23:17)
[2019-11-28] MEDS ORDERED: hydrOXYzine PAMOATE 25 MG CAPSULE (FP) PO ONE (22:00)
[2019-11-28] MEDS: MELATONIN 5 MG TABLETS PO SCH (23:17)
[2019-11-28] MEDS: THIAMINE HCL 100 MG TABLET (FP) PO SCH (23:17)
[2019-11-28] MEDS: OLANZapine 10 MG TABLET PO SCH (23:19)
[2019-11-29] MEDS ORDERED: METHADONE HCL 5 MG TABLET (FOR DETOX USE ONLY) PO ONE (06:00)
[2019-11-29 09:40] VITALS: BP 149/83; PULSE 78; TEMP 98
[2019-11-29] MEDS: GABAPENTIN 300 MG CAPSULE PO SCH (10:13)
[2019-11-29] MEDS: NICOTINE 7 MG/24 HOURS TOPICAL PATCH TD SCH (10:13)
[2019-11-29] MEDS: guaiFENesin 600 MG TABLET.ER (FP) PO SCH (10:13)
[2019-11-29] MEDS: amLODIPine BESYLATE 10 MG TABLET (FP) PO SCH (10:13)
[2019-11-29] MEDS: PRENATAL VITAMINS W/ FOLIC ACID TABLET (FP) PO SCH (10:13)
--- NOTE | 2019-11-29 12:32 | PN ---
[facility] CIWA - CIWA Score Nausea/Vomitin-No Nausea/No Vomiting Muscle Tremors: None Anxiety: 1-Mildly Anxious Agitation: 0-Normal Activity Paroxysmal Sweats: No Perspiration Orientation: 0-Oriented Tacttile Disturbances: 0-None Auditory Disturbances: 0-None Visual Disturbances: 0-None Headache: 0-None Present CIWA-Ar Total Score: 1 [facility] COWS - Scale Resting Pulse: 0= [place] 80 or Below Sweatin= No chills or Flushing Restless Observation: 0= Sits Still Pupil Size: 0= Normal to Room Light Bone or Joint Aches: 0= None Runny Nose/ Eye Tearin= None GI Upset > 30mins: 0= None Tremor Observation of Outstretched Hands: 0= None Yawning Observation: 0= None Anxiety or Irritability: 1=Feels Anxious/Irritable Goose Flesh Skin: 0=Smooth Skin COWS Score: 1 [facility] Progress Note (SOAP) Subjective: alert,no complaint Objective: 11/29/19 12:30 Vital Signs Temperature 98.0 F 11/29/19 09:25 Pulse Rate 78 11/29/19 09:25 Respiratory Rate 16 11/29/19 09:25 Blood Pressure 149/83 11/29/19 09:25 O2 Sat by Pulse Oximetry (%) 100 11/29/19 09:25 Assessment: 11/29/19 12:30 detox completed,no withdrawal symptom Plan: stable for discharge today,follow up with after care program as arrangement
--- NOTE | 2019-11-29 12:33 | DS ---
[facility] Detox Discharge Summary Admission Date: 11/24/19 Discharge Date: 11/29/19 - History Present History: Alcohol Dependence, Cannabis Dependence, Opioid Dependence Additional Comments: alert,oriented x 3 ambulation on the unit lung cleat on auscultation bilaterally abdomen soft,no distension,no pain no tenderness stable for discharge today,no withdrawal symptom,detox completed stable for discharge today decline rehab follow up with after care program as arrangement total time of discharge 35 minutes Pertinent Past History: asthma hypertension bipolar disorder alcohol related seizure - Physical Exam Results Vital Signs: Vital Signs Temperature 98.0 F 11/29/19 09:25 Pulse Rate 78 11/29/19 09:25 Respiratory Rate 16 11/29/19 09:25 Blood Pressure 149/83 11/29/19 09:25 O2 Sat by Pulse Oximetry (%) 100 11/29/19 09:25 Pertinent Admission Physical Exam Findings: withdrawal signs and symptom Laboratory Last Values WBC 8.0 K/mm3 (4.0-10.0) 11/25/19 07:40 RBC 4.45 M/mm3 (4.00-5.60) 11/25/19 07:40 Hgb 14.0 GM/dL (11.7-16.9) 11/25/19 07:40 Hct 42.0 % (35.4-49) 11/25/19 07:40 MCV 94.4 fl (80-96) 11/25/19 07:40 MCH 31.5 pg (25.7-33.7) 11/25/19 07:40 MCHC 33.4 g/dl (32.0-35.9) 11/25/19 07:40 RDW 13.3 % (11.9-15.9) 11/25/19 07:40 Plt Count 243 K/MM3 (134-434) 11/25/19 07:40 MPV 8.2 fl (7.5-11.1) 11/25/19 07:40 Sodium 144 mmol/L (136-145) 11/25/19 07:40 Potassium 3.6 mmol/L (3.5-5.1) 11/25/19 07:40 Chloride 108 mmol/L (98-107) H 11/25/19 07:40 Carbon Dioxide 30 mmol/L (21-32) 11/25/19 07:40 Anion Gap 6 MMOL/L (8-16) L 11/25/19 07:40 BUN 7.4 mg/dL (7-18) 11/25/19 07:40 Creatinine 1.2 mg/dL (0.55-1.3) 11/25/19 07:40 Est GFR (CKD-EPI)AfAm 82.38 11/25/19 07:40 Est GFR (CKD-EPI)NonAf 71.08 11/25/19 07:40 Random Glucose 77 mg/dL (74-106) 11/25/19 07:40 Calcium 8.9 mg/dL (8.5-10.1) 11/25/19 07:40 Total Bilirubin 0.3 mg/dL (0.2-1) 11/25/19 07:40 AST 12 U/L (15-37) L 11/25/19 07:40 ALT 18 U/L (13-61) 11/25/19 07:40 Alkaline Phosphatase 119 U/L (45-117) H 11/25/19 07:40 Total Protein 7.2 g/dl (6.4-8.2) 11/25/19 07:40 Albumin 3.5 g/dl (3.4-5.0) 11/25/19 07:40 Syphilis Serology Non-reactive (NONREACTIVE) 11/25/19 07:40 COVID-19 (FREDRICK) Not detected (Not Detected) 11/24/19 11:35 HIV Ag/Ab Combo Qual Negative (NEGATIVE) 11/25/19 07:40 Vital Signs Temperature 98.0 F 11/29/19 09:25 Pulse Rate 78 11/29/19 09:25 Respiratory Rate 16 11/29/19 09:25 Blood Pressure 149/83 11/29/19 09:25 O2 Sat by Pulse Oximetry (%) 100 11/29/19 09:25 - Treatment Hospital Course: Detox Protocol Followed, Detoxed Safely, Responded well, Discharged Condition Good Patient has Accepted a Rehab Referral to: declined - Medication Discharge Medications: Ambulatory Orders Amlodipine Besylate [Norvasc -] 10 mg PO DAILY #14 tablet 09/17/19 Gabapentin [Neurontin] 300 mg PO BID #30 cap 09/17/19 Olanzapine [ZyPREXA -] 10 mg PO HS #30 tablet 09/17/19 - Diagnosis (1) Opioid dependence with withdrawal Status: Acute (2) Alcohol dependence with uncomplicated withdrawal Status: Acute (3) Asthma Status: Acute (4) Cannabis dependence in early, early partial, sustained full, or sustained partial remission Status: Acute (5) Asthma Status: Chronic Qualifiers: Asthma severity: mild Asthma persistence: intermittent Asthma complication type: uncomplicated Qualified Code(s): J45.20 - Mild intermittent asthma, uncomplicated (6) Bipolar disorder Status: Chronic (7) PPD positive, treated Status: Resolved (8) Alcohol related seizure Status: Ruled-out (9) Bipolar disorder Status: Acute - AMA Did Patient Leave Against Medical Advice: No
--- NOTE | 2019-11-29 13:08 | PN ---
[facility] Progress Note Note: addendum patient went to [facility]
== END 2019-11-29 11:32 | disposition home or self-care (01) | DRG 773 ==
LOC: YASAS 10:11 → Y6N 11:31
PROVIDERS: ADMIT Allergy & Immunology; ATTEND Allergy & Immunology
PROC: HZ2ZZZZ Detoxification Services for Substance Abuse Treatment (ICD-10-PCS; principal; 2019-11-24)
PROC: HZ2ZZZZ Detoxification Services for Substance Abuse Treatment (ICD-10-PCS; 2019-11-24)
DX: F11.23 Opioid dependence with withdrawal (principal); F10.230 Alcohol dependence with withdrawal, uncomplicated; F14.20 Cocaine dependence, uncomplicated; F12.20 Cannabis dependence, uncomplicated; F17.210 Nicotine dependence, cigarettes, uncomplicated; F19.282 Other psychoactive substance dependence with psychoactive substance-induced sleep disorder; F19.24 Other psychoactive substance dependence with psychoactive substance-induced mood disorder; F31.9 Bipolar disorder, unspecified; I10 Essential (primary) hypertension; J45.20 Mild intermittent asthma, uncomplicated; R76.11 Nonspecific reaction to tuberculin skin test without active tuberculosis; Z62.810 Personal history of physical and sexual abuse in childhood; Z86.19 Personal history of other infectious and parasitic diseases; Z87.438 Personal history of other diseases of male genital organs; Z91.018 Allergy to other foods; Z56.0 Unemployment, unspecified
CPT/HCPCS: 36415; 71046-TC-FY; 80053; 85027; 86780; 87389; J0735; U0003